=== PATIENT | female | born 1930 | race Caucasian/White ===

== ENCOUNTER 2017-02-12 13:47 | Inpatient (IN) ==
[2017-02-12] MEDS ORDERED: Ipratropium/Albuterol Neb 3 ML IH ONE (13:53)
[2017-02-12] MEDS ORDERED: methylPREDNISolone 125 MG/2 ML VIAL IVP ONE (13:53)
[2017-02-12] MEDS ORDERED: 0.9 % Sodium Chloride 500 ML IVC ONE (13:54)
--- NOTE | 2017-02-12 13:58 | Emergency Department Note ---
Disposition Clinical Impression: COPD exacerbation, Tobacco use, Hyponatremia Disposition: Admitted As Inpatient Condition: Fair Referrals: Sujey Lewis DO [Primary Care Provider] - Forms: ED Satisfaction Letter SOB HPI - General Chief Complaint: ED Shortness of Breath/Dyspnea Stated Complaint: shortness of breath Time Seen by Provider: 02/12/17 13:48 Source: patient, EMS Mode of arrival: EMS Limitations: no limitations Nursing Notes Reviewed: Yes Vital Signs Reviewed: Yes - History of Present Illness 86-year-old female history of hypertension history of COPD tobacco abuse presents for evaluation of dyspnea. Patient notes it has been short of breath over the past month worse in the past 24-48 hours. Dyspnea at rest and with exertion. Does not have home oxygen. Patient does not have home nebulizers. Denies any cough or fevers. Denies any chest pain. Patient states she does not go to the doctor very often. Denies a history of any heart attacks. Denies history of diabetes. Patient states that she continues to smoke. EMS report that she had an oxygen saturation of 92% on room air. Improve to 100% with 1 DuoNeb in route. Patient denies any recent hospitalizations in the past 2 months. - Related Data Home Medications Medication Instructions Recorded Confirmed Aspirin 81 mg PO DAILY 07/10/15 12/19/15 Multivitamin [Multi-Day Vitamins] 1 cap PO DAILY 07/10/15 12/19/15 [place]-3S/Dha/Epa/Fish Oil [Fish 1 cap PO DAILY 07/10/15 12/19/15 Oil 1,200 mg Softgel] Esomeprazole Magnesium [Nexium] 40 mg PO DAILY 08/26/15 12/19/15 Lactobacillus Acidophilus/Fos 1 tab PO DAILY 08/26/15 12/19/15 [Acidophilus Probiotic Tablet] Mirtazapine 15 mg PO HS 12/19/15 12/19/15 amLODIPine [Norvasc] 10 mg PO DAILY 12/19/15 12/19/15 Previous Rx's Medication Instructions Recorded Dronabinol [Marinol] 2.5 mg PO BIDLS #60 capsule 12/25/15 Metoprolol [Lopressor] 25 mg PO BID #0 tablet 12/25/15 Nicotine Patch [Nicoderm] 14 mg TD DAILY patch.td24 12/25/15 hydrALAZINE [HydrALAZINE] 10 mg PO Q6HR #0 tablet 12/25/15 Meclizine [Antivert] 25 mg PO TID PRN #30 tablet 08/05/16 Allergies Allergy/AdvReac Type Severity Reaction Status Date / Time No Known Allergies Allergy Verified 12/19/15 15:54 All systems ED: reviewed and negative except as stated. Constitutional: Reports: as per HPI. Denies: fever Eyes: Reports: as per HPI ENT ED: Reports: as per HPI Cardiovascular: Reports: as per HPI. Denies: chest pain, palpitations Respiratory: Reports: as per HPI, dyspnea. Denies: cough Gastrointestinal: Reports: as per HPI. Denies: abdominal pain, nausea, vomiting Genitourinary: Reports: as per HPI Musculoskeletal: Reports: as per HPI Integumentary: Reports: as per HPI Neurological: Reports: as per HPI Psychiatric: Reports: as per HPI Endocrine: Reports: as per HPI Hematological/Lymphatic: Reports: as per HPI Allergic/Immunologic: Reports: as per HPI Past Medical History - Past Medical History Medical history: Reports: DVT, hyperlipidemia, hypertension, malignancy Psychiatric history: Reports: no psych history RETAIL LOAN OFFICER history: Reports: no RETAIL LOAN OFFICER history - Social History Smoking Status: Current every day smoker Smokeless Tobacco Status: No Alcohol use: Reports: none Drug use: Reports: none Physical Exam - General Limitations: no limitations General appearance: alert, in no apparent distress, other (Appears mildly comfortable with conversational dyspneic of 1-2 sentences.) - Head Head exam: atraumatic, normal inspection - Eye Eye exam: Present: normal appearance, EOMI - ENT ENT exam: normal exam, mucous membranes moist - Neck Neck exam: Present: normal inspection, trachea midline - Chest Chest inspection: Present: normal inspection, symmetric chest wall rise, tenderness - Respiratory Respiratory exam: Present: accessory muscle use, prolonged expiratory phase. Absent: respiratory distress, wheezes - Cardiovascular Cardiovascular exam: Present: regular rate, normal rhythm - Abdominal Exam Abdominal exam: Present: soft, Non-Tender - Extremities Exam Extremities exam: Present: normal inspection. Absent: pedal edema - Back Exam Back exam: Present: normal inspection - Neurological Exam Neurological exam: Present: alert, oriented X3 - Skin Skin exam: Present: warm, dry, intact, normal color Course Course Narrative: Patient seen and examined upon arrival. Patient's in no acute distress. Patient does have some conversational dyspneic with short sentences. Patient does have accessory muscle use. Patient's lung exam is nonfocal. Patient likely is in COPD exacerbation. Patient will get double DuoNeb's IV steroids, fluids. Patient will also get a screening cardiac evaluation with EKG troponin and basic lab work. Chest x-ray is also pending. Disposition is likely admission. - Reevaluation(s) Reevaluation #1: Patient seen and examined. Patient notes that BREATHING has improved. Patient does appear to be 92% on room air. Concerned that the patient would fail outpatient therapy and does live independently. Time: 15:12 Reevaluation #2: Patient seen and examined. Patient's pulse ox appears to be 92% on room air. Patient did respond well to the steroids and albuterol. Time: 15:16 Vital Signs Temperature 97.2 F L 02/12/17 13:53 Pulse Rate 53 02/12/17 13:53 Respiratory Rate 18 02/12/17 13:53 Blood Pressure 123/92 02/12/17 13:53 O2 Sat by Pulse Oximetry 96 02/12/17 13:53 Temperature 97.2 F L 02/12/17 13:53 Pulse Rate 53 02/12/17 13:53 Respiratory Rate 18 02/12/17 14:05 Blood Pressure 123/92 02/12/17 13:53 O2 Sat by Pulse Oximetry 94 02/12/17 14:05 Oxygen Delivery Oxygen Delivery Room Air Shortness of Breath/Dyspnea - [facility] Narrative Medical decision making narrative: 86-year-old female presents for evaluation of dyspnea. Noted be dyspneic over the past 2 days. Patient does have an extensive smoking history. Patient does not follow with the doctor very often. Patient states that she has been dyspneic on exertion and at rest. No home oxygen. Patient does have home meds which she uses infrequently. Patient was found to be 92% on room air. Patient did receive 1 DuoNeb as well as subsequent nebs in the department. Patient received IV fluids and steroids. Patient's chest x-ray shows atelectasis versus pneumonia. Since the patient was borderline hypoxic will be started on oral antibiotic here. Consider the patient does live independently and would fail outpatient therapy. Patient has a negative troponin nonischemic EKG. Patient's agreeable for observation. Since labs reviewed as have what appears to be chronic hyponatremia. Patient does appear to be bradycardic with normotension. Patient is agreeable to hospital admission. Given the fact that the patient is borderline hypoxic without oxygen supplementation at home. - Lab Data Lab results reviewed: Yes I reviewed the patient's lab results. Result diagrams: 02/12/17 14:02 02/12/17 14:02 Lab Results 02/12/17 02/12/17 02/12/17 Range/Units 14:02 14:02 14:02 WBC 9.3 (4.3-11.1) K/mcL RBC 4.79 (3.82-4.97) M/mcL Hgb 13.4 (11.5-15.4) g/dL Hct 40.1 (35.3-44.9) % MCV 83.7 (83.0-100.0) fL MCH 28.0 (28.0-33.3) pg MCHC 33.4 (31.6-35.5) g/dL RDW 14.1 (11.5-14.5) % Plt Count 478 H (140-400) K/mcL MPV 9.5 (9.4-12.4) fL Immature Gran % 0.4 (0-4) % Seg Neutrophils % 67.7 % Lymphocytes % 17.0 % Monocytes % 12.4 % Eosinophils % 2.0 % Basophils % 0.5 % Neutrophils # 6.3 (1.6-8.9) K/mcL Lymphocytes # 1.6 (0.6-4.6) K/mcL Monocytes # 1.2 (0.0-1.3) K/mcL Eosinophils # 0.2 (0.0-0.6) K/mcL Basophils # 0.1 (0.0-0.2) K/mcL PT (9.4-12.1) Seconds INR Sodium 128 L (136-145) mEq/L Potassium 4.3 (3.5-4.5) mEq/L Chloride 94 L (98-109) mEq/L Carbon Dioxide 25 (19-29) mEq/L BUN 16 (7-20) mg/dL Creatinine 0.84 (0.57-1.11) mg/dL Est GFR ( Amer) > 60 (> 60) Est GFR (Non-Af Amer) > 60 (> 60) BUN/Creatinine Ratio 19 (6-26) Glucose 121 H (70-99) mg/dL Calculated Osmolality 268 L (280-300) Calcium 9.5 (8.6-10.8) mg/dL Troponin I 0.02 (0-0.03) ng/mL B-Natriuretic Peptide (0-100) pg/mL 02/12/17 02/12/17 Range/Units 14:02 14:02 WBC (4.3-11.1) K/mcL RBC (3.82-4.97) M/mcL Hgb (11.5-15.4) g/dL Hct (35.3-44.9) % MCV (83.0-100.0) fL MCH (28.0-33.3) pg MCHC (31.6-35.5) g/dL RDW (11.5-14.5) % Plt Count (140-400) K/mcL MPV (9.4-12.4) fL Immature Gran % (0-4) % Seg Neutrophils % % Lymphocytes % % Monocytes % % Eosinophils % % Basophils % % Neutrophils # (1.6-8.9) K/mcL Lymphocytes # (0.6-4.6) K/mcL Monocytes # (0.0-1.3) K/mcL Eosinophils # (0.0-0.6) K/mcL Basophils # (0.0-0.2) K/mcL PT 10.9 (9.4-12.1) Seconds INR 1.0 Sodium (136-145) mEq/L Potassium (3.5-4.5) mEq/L Chloride (98-109) mEq/L Carbon Dioxide (19-29) mEq/L BUN (7-20) mg/dL Creatinine (0.57-1.11) mg/dL Est GFR ( Amer) (> 60) Est GFR (Non-Af Amer) (> 60) BUN/Creatinine Ratio (6-26) Glucose (70-99) mg/dL Calculated Osmolality (280-300) Calcium (8.6-10.8) mg/dL Troponin I (0-0.03) ng/mL B-Natriuretic Peptide 141 H (0-100) pg/mL - Radiology Data Radiology results reviewed: Yes I reviewed the patient's radiology results. Chest X-Ray 02/12/17 13:53 IMPRESSION: Patchy opacity in the right lung base which may represent atelectasis versus pneumonia in the appropriate clinical setting. D/ / Deidra Bush MD / Deidra Bush MD Interpreting Provider: Deidra Bush MD - EKG Data EKG attestation: Yes I reviewed and interpreted this EKG. EKG shows normal: Reports: sinus rhythm Rate: Reports: normal Rhythm: Reports: NSR [place]/QRS: Reports: normal Q waves: Reports: v1 T wave inversions noted in: Reports: III (Flat) Interpretation: Reports: unchanged when compared to prior tracing (date) (2015) , nonspecific ST-T wave changes S.B.A.R. - S.B.A.RStephan Situation: Demographics, MOA Background: Presenting Complaint Assessment: Vital Signs, Course and respsone to treatment, Patient/Family Expectation Recommendation: Barrier(s) to disposition, Recommendation based on pending studies, treatments, or consults S.B.A.R. Report Given to: Dr. Aubrie Grigsby Repor Time: 15:21
[2017-02-12 14:13] LABS: Basophils # 0.1 K/mcL (0.0-0.2); Basophils % 0.5 %; Eosinophils # 0.2 K/mcL (0.0-0.6); Hematocrit 40.1 % (35.3-44.9); Hemoglobin 13.4 g/dL (11.5-15.4); Immature Granulocytes % 0.4 % (0-4); Lymphocytes # 1.6 K/mcL (0.6-4.6); Mean Corpuscular HGB Conc 33.4 g/dL (31.6-35.5); Mean Corpuscular Volume 83.7 fL (83.0-100.0); Mean Platelet Volume 9.5 fL (9.4-12.4); Monocytes # 1.2 K/mcL (0.0-1.3); Monocytes % 12.4 %; Neutrophils # 6.3 K/mcL (1.6-8.9); Platelet Count 478 K/mcL (140-400); Red Blood Count 4.79 M/mcL (3.82-4.97); Red Cell Distribution Width 14.1 % (11.5-14.5); Segmented Neutrophils % 67.7 %
[2017-02-12 14:15] LABS: Prothrombin Time 10.9 Seconds (9.4-12.1)
--- NOTE | 2017-02-12 14:15 | Emergency Department Note ---
START Narrative - START START: I examined this patient and my medical decision-making was reviewed with the SLINGER SEQUINS/PA/Advanced Practice Nurse/Resident Physician. I agree with the documented findings, disposition and treatment plan as described except to the extent set forth below. ED attending note: Patient seen with emergency medicine resident Dr. Swann. Please see a copy of his note for details of the H&P, evaluation, management and disposition of this patient. We independently had [id number] contact with the patient Briefly: 86-year-old female undiagnosed COPD one to 2 pack per day smoker presents by EMS for increasing shortness of breath and hypoxia. White And hypoxic at 92% on room air, respiratory wheezes with decreased breath sounds bilaterally. Smoker of tobacco around her. Patient with a DuoNeb steroids chest x-ray EKG screening labs. Anticipated admission. Provided 45 minutes. SERVICE for this patient. Disposition pending.
[2017-02-12 14:22] LABS: BUN/Creatinine Ratio 19 (6-26); Blood Urea Nitrogen 16 mg/dL (7-20); Calcium 9.5 mg/dL (8.6-10.8); Carbon Dioxide 25 mEq/L (19-29); Chloride 94 mEq/L (98-109); Glucose 121 mg/dL (70-99); Osmolality,Calculated 268 (280-300); Potassium 4.3 mEq/L (3.5-4.5); Sodium 128 mEq/L (136-145); eGFR For African Americans > 60 (> 60); eGFR For Non-African Americans > 60 (> 60)
[2017-02-12] MEDS ORDERED: levoFLOXacin 500 MG TABLET PO ONE (14:54)
[2017-02-12] MEDS ORDERED: Ondansetron 4 MG/2 ML VIAL IVP PRN (15:43)
[2017-02-12] MEDS ORDERED: Acetaminophen 325 MG TABLET PO PRN (15:43)
[2017-02-12] MEDS ORDERED: Naloxone 0.4 MG/ML INJ IVP PRN (15:43)
[2017-02-12] MEDS ORDERED: *HR* Morphine 2 MG/ML SYRINGE IVP PRN (15:43)
--- NOTE | 2017-02-12 15:54 | Internal Med History&Physical ---
Date of Encounter: 02/12/17 Time of Encounter: 15:52 Assessment and Plan (1) COPD exacerbation Current visit: Yes Status: Acute Acute COPD exacerbation likely secondary to community-acquired pneumonia Continue Levaquin started on the emergency room Continue Solu-Medrol, oxygen therapy and DuoNeb's. Omeprazole for GI prophylaxis and Lovenox for DVT prophylaxis. Patient will be admitted for observation. She is a DNR CC arrest DNI. Time spent on this admission 40 minutes. 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 The patient has been complaining of difficulty breathing for the past month worse in the past 2 days. She says she is bringing up some whitish phlegm. The chest x-ray shows a possible right lower lobe opacity compatible with pneumonia. Her sodium was found to be low at 128 but she has had a history of chronic hyponatremia and her prior values were 129 and 130. She was saturating 92% on room air received Solu-Medrol and DuoNeb's at the emergency room but did not improve her symptomatology. Has been feeling dizzy lately, denies any sick contacts. No other complaints Past Med Surg Social Fam HX - Past Medical History Medical history: COPD (Not oxygen dependent), DVT, hyperlipidemia, hypertension , malignancy (Abdominal Follicular lymphoma status post chemotherapy in 2011), other (Tobacco abuse, atrial fibrillation treated with aspirin only due to frequent falls. GERD, depression) Psychiatric history: no psych history - Social History Smoking Status: Current every day smoker Packs per day: 1-2 packs per day Smokeless Tobacco Status: No Alcohol use: none Drug use: none - Family History Daughter Hx Family Cancer: Yes (cervical cancer) - Additional Family History Additional family history: Daughter with cervical cancer Internal Medicine - H&P: Meds Aspirin 81 mg PO DAILY 07/10/15 [History] Multivitamin [Multi-Day Vitamins] 1 cap PO DAILY 07/10/15 [History] [place]-3S/Dha/Epa/Fish Oil [Fish Oil 1,200 mg Softgel] 1 cap PO DAILY 07/10/15 [ History] amLODIPine [Norvasc] 10 mg PO DAILY 12/19/15 [History] Metoprolol [Lopressor] 25 mg PO BID #0 tablet 12/25/15 [Rx] hydrALAZINE [HydrALAZINE] 10 mg PO Q6HR #0 tablet 12/25/15 [Rx] Albuterol Sulfate [Albuterol Inhaler] 2 puff IH Q4H PRN 02/12/17 [History] Budesonide/Formoterol 160/4.5 [Symbicort 160/4.5] 2 puff IH BIDR 02/12/17 [ History] Citalopram Hydrobromide [Citalopram HBr] 10 mg PO DAILY 02/12/17 [History] Mirtazapine [Remeron] 30 mg PO HS 02/12/17 [History] Allergies No Known Allergies Allergy (Verified 12/19/15 15:54) All Systems PM: A 10-system review of systems was performed and is negative for pertinent findings except as documented above in the HPI. Review of systems: Feeling weak and short of breath. Other systems out the 10 reviewed were negative - Constitutional Vitals: Temp Pulse Resp BP Pulse Ox 97.2 F L 53 18 123/92 94 02/12/17 13:53 02/12/17 13:53 02/12/17 14:05 02/12/17 13:53 02/12/17 14:05 General appearance: Present: A&O X 3 - Head Head exam: Present: atraumatic, normocephalic - Eye Eye exam: Present: PERRL, conjuntiva pink, sclera anicteric Pupils: Present: PERRL Additional comments: Very hard of hearing - Neck Neck exam general surgery: Present: supple, trachea midline. Absent: lymphadenopathy - Respiratory Respiratory exam: Present: CTAB, wheezes (Findings bilateral wheezing). Absent : accessory muscle use, rales, rhonchi - Cardiovascular Cardiovascular exam: Present: RRR, +S1, +S2. Absent: diastolic murmur, gallop, rubs, systolic murmur - GI/Abdominal GI/Abdominal exam: Present: normal bowel sounds, soft, no peritoneal signs. Absent: distended, tenderness - Extremities Exam Extremities exam: Present: warm, radial pulses palpable and symetrical. Absent : calf tenderness, cyanotic, pedal edema - Neurological Exam Neurological exam: Present: CN II-XII intact, oriented X3, no focal deficits. Absent: pronater drift, facial droop, speech deficit - Skin Skin exam: Present: dry, intact Internal Med - H&P Results - Labs CBC & Chem 7: 02/12/17 14:02 02/12/17 14:02 Labs: Short CBC 02/12/17 Range/Units 14:02 WBC 9.3 (4.3-11.1) K/mcL Hgb 13.4 (11.5-15.4) g/dL Hct 40.1 (35.3-44.9) % Plt Count 478 H (140-400) K/mcL Neutrophils # 6.3 (1.6-8.9) K/mcL BMP 02/12/17 14:02 Sodium 128 L Potassium 4.3 Chloride 94 L Carbon Dioxide 25 BUN 16 Creatinine 0.84 Glucose 121 H Calcium 9.5 Cardiac Enzymes 02/12/17 Range/Units 14:02 Troponin I 0.02 (0-0.03) ng/mL - Impressions ITS Impressions Chest X-Ray 02/12/17 13:53 IMPRESSION: Patchy opacity in the right lung base which may represent atelectasis versus pneumonia in the appropriate clinical setting. D/ / Deidra Bush MD / Deidra Bush MD Interpreting Provider: Deidra Bush MD
[2017-02-12] MEDS: *HR* Enoxaparin 40 MG/0.4 ML SYRINGE SQ SCH (17:40)
[2017-02-12] MEDS: 0.9 % Sodium Chloride 1,000 ML IVC SCH (17:40)
[2017-02-12] MEDS: Nicotine 21 MG PATCH.TD24 TD SCH (17:41)
[2017-02-12] MEDS: Ipratropium/Albuterol Neb 3 ML IH SCH ×2 (18:30→21:47)
[2017-02-12] MEDS: hydrALAZINE 10 MG TABLET PO SCH (18:40)
[2017-02-12] MEDS: MethylPREDNISolone 40 MG/ML VIAL IVP SCH (20:34)
[2017-02-12] MEDS: Mirtazapine 15 MG TABLET PO SCH (20:34)
[2017-02-13] MEDS: hydrALAZINE 10 MG TABLET PO SCH ×4 (00:24→17:38)
[2017-02-13] MEDS ORDERED: *HR* Labetalol 20 MG/4 ML SYRINGE IVP PRN (03:24)
[2017-02-13] MEDS: Ipratropium/Albuterol Neb 3 ML IH SCH ×4 (04:35→21:48)
[2017-02-13 04:48] LABS: Basophils % 0.1 %; Hematocrit 37.6 % (35.3-44.9); Hemoglobin 12.2 g/dL (11.5-15.4); Immature Granulocytes % 0.3 % (0-4); Lymphocytes # 0.7 K/mcL (0.6-4.6); Mean Corpuscular HGB Conc 32.4 g/dL (31.6-35.5); Mean Corpuscular Hemoglobin 27.4 pg (28.0-33.3); Mean Corpuscular Volume 84.3 fL (83.0-100.0); Mean Platelet Volume 9.3 fL (9.4-12.4); Monocytes # 0.1 K/mcL (0.0-1.3); Neutrophils # 8.1 K/mcL (1.6-8.9); Platelet Count 436 K/mcL (140-400); Red Blood Count 4.46 M/mcL (3.82-4.97); Segmented Neutrophils % 90.6 %
[2017-02-13 05:22] LABS: BUN/Creatinine Ratio 20 (6-26); Blood Urea Nitrogen 17 mg/dL (7-20); Calcium 9.2 mg/dL (8.6-10.8); Carbon Dioxide 23 mEq/L (19-29); Chloride 98 mEq/L (98-109); Glucose 151 mg/dL (70-99); Osmolality,Calculated 270 (280-300); Potassium 4.9 mEq/L (3.5-4.5); Sodium 128 mEq/L (136-145); eGFR For African Americans > 60 (> 60); eGFR For Non-African Americans > 60 (> 60)
[2017-02-13] MEDS: *HR* Enoxaparin 40 MG/0.4 ML SYRINGE SQ SCH (06:25)
[2017-02-13] MEDS ORDERED: Levofloxacin 750 MG/150 ML 750 MG/150 ML BAG IVPB SCH (09:00)
[2017-02-13] MEDS ORDERED: Sodium Bicarbonate 50 MEQ/50 ML VIAL IVP ONE (09:09)
[2017-02-13] MEDS: Nicotine 21 MG PATCH.TD24 TD SCH (10:22)
[2017-02-13] MEDS: Aspirin 81 MG TAB.CHEW PO SCH (10:24)
[2017-02-13] MEDS: amLODIPine 5 MG TABLET PO SCH (10:24)
[2017-02-13] MEDS: 0.9 % Sodium Chloride 1,000 ML IVC SCH (11:50)
[2017-02-13] MEDS: MethylPREDNISolone 40 MG/ML VIAL IVP SCH (11:51)
[2017-02-13] MEDS ORDERED: Furosemide 20 MG/2 ML VIAL IVP ONE (13:23)
--- NOTE | 2017-02-13 13:27 | Internal Med Progress Note ---
Date of Encounter: 02/13/17 Time of Encounter: 13:22 - Assessment and plan (1) COPD exacerbation Current Visit: Yes Status: Acute Assessment and plan: Looking one more day in hospital. She still requirements 1/2 L of oxygen express. She is not on oxygen at home. I would also discontinue IV fluids. give gentle diuresis. Check for home oxygen requirements on discharge. (2) Hyponatremia Current Visit: Yes Status: Acute Assessment and plan: Await results of urine sodium osmolality. There has been no improvement with IV fluids given yesterday. 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 She has history of follicular lymphoma. I will discontinue IV fluids. - Subjective Interval history: Patient seen and examined at beside. Still requiring 2.5 liters of nasal oxygen at rest.. She is not oxygen home. - Constitutional Vitals: Temp Pulse Resp BP Pulse Ox 98.1 F 112 18 152/90 90 02/13/17 11:17 02/13/17 11:17 02/13/17 11:17 02/13/17 11:17 02/13/17 11:17 General appearance: Present: A&O X 3 Exam: Gen.: patient is alert oriented times 3 not in distress. Cardiac: normal S1 S2 no additional sounds or murmurs chest: fair air entry. no active wheezing. No crackles or bronchial breathing. abdomen: soft nontender nondistended normal bowel sounds neuro: no focal deficit Internal Medicine: Result - Labs CBC & Chem 7: 02/13/17 04:33 02/13/17 04:33 Labs: Short CBC 02/13/17 Range/Units 04:33 WBC 9.0 (4.3-11.1) K/mcL Hgb 12.2 (11.5-15.4) g/dL Hct 37.6 (35.3-44.9) % Plt Count 436 H (140-400) K/mcL Neutrophils # 8.1 (1.6-8.9) K/mcL BMP 02/13/17 04:33 Sodium 128 L Potassium 4.9 H Chloride 98 Carbon Dioxide 23 BUN 17 Creatinine 0.86 Glucose 151 H Calcium 9.2 - ABG Interpretation ABG results: PT/INR, D-dimer PT 10.9 Seconds (9.4-12.1) 02/12/17 14:02 Consult Discharge Plan - Plan Referrals: Sujey Lewis DO [Primary Care Provider] - (Web Request on 02/13/17)
[2017-02-13] MEDS: predniSONE 20 MG TABLET PO SCH (15:06)
[2017-02-13] MEDS: Furosemide 40 MG TABLET PO SCH (15:06)
[2017-02-13] MEDS: Mirtazapine 15 MG TABLET PO SCH (21:38)
[2017-02-14] MEDS: hydrALAZINE 10 MG TABLET PO SCH ×4 (00:52→17:43)
[2017-02-14] MEDS: Ipratropium/Albuterol Neb 3 ML IH SCH ×4 (04:14→22:09)
[2017-02-14 04:18] LABS: Basophils % 0.1 %; Hematocrit 38.8 % (35.3-44.9); Immature Granulocytes % 0.4 % (0-4); Lymphocytes # 0.8 K/mcL (0.6-4.6); Lymphocytes % 4.3 %; Mean Corpuscular HGB Conc 33.5 g/dL (31.6-35.5); Mean Corpuscular Hemoglobin 28.3 pg (28.0-33.3); Mean Corpuscular Volume 84.3 fL (83.0-100.0); Mean Platelet Volume 9.7 fL (9.4-12.4); Neutrophils # 17.1 K/mcL (1.6-8.9); Platelet Count 503 K/mcL (140-400); Red Cell Distribution Width 14.6 % (11.5-14.5); Segmented Neutrophils % 90.2 %
[2017-02-14 04:34] LABS: Calcium 9.6 mg/dL (8.6-10.8); Magnesium 2.1 mg/dL (1.6-2.6)
[2017-02-14] MEDS: *HR* Enoxaparin 40 MG/0.4 ML SYRINGE SQ SCH (06:03)
[2017-02-14] MEDS: amLODIPine 5 MG TABLET PO SCH (07:49)
[2017-02-14] MEDS: Aspirin 81 MG TAB.CHEW PO SCH (07:50)
[2017-02-14] MEDS: Furosemide 40 MG TABLET PO SCH (07:50)
[2017-02-14] MEDS: Nicotine 21 MG PATCH.TD24 TD SCH (07:50)
[2017-02-14] MEDS: predniSONE 20 MG TABLET PO SCH (07:50)
[2017-02-14] MEDS: levoFLOXacin 750 MG TABLET PO SCH (07:50)
[2017-02-14 08:40] LABS: Basophils % 0.1 %; Hematocrit 39.4 % (35.3-44.9); Hemoglobin 12.9 g/dL (11.5-15.4); Immature Granulocytes % 0.3 % (0-4); Lymphocytes # 1.2 K/mcL (0.6-4.6); Lymphocytes % 5.4 %; Mean Corpuscular HGB Conc 32.7 g/dL (31.6-35.5); Mean Corpuscular Hemoglobin 27.9 pg (28.0-33.3); Mean Corpuscular Volume 85.1 fL (83.0-100.0); Mean Platelet Volume 9.2 fL (9.4-12.4); Monocytes # 1.7 K/mcL (0.0-1.3); Monocytes % 7.7 %; Neutrophils # 18.6 K/mcL (1.6-8.9); Platelet Count 509 K/mcL (140-400); Red Blood Count 4.63 M/mcL (3.82-4.97); Red Cell Distribution Width 14.7 % (11.5-14.5); Segmented Neutrophils % 86.5 %
--- NOTE | 2017-02-14 13:25 | Internal Med Progress Note ---
Date of Encounter: 02/14/17 Time of Encounter: 13:23 - Assessment and plan (1) COPD exacerbation Current Visit: Yes Status: Acute Assessment and plan: Likely d/c in am clinically improving started Prednisone today noted to have leukocytosis, however given no clinical signs of infectious etiology, will monitor off abx CT chest consistent with atelectasis, will provide incentive spirometery O2 qualification test for home oxygen continue bronchodilator support O2 supplementation as needed (2) Dizziness Current Visit: Yes Status: Chronic Assessment and plan: likely orthostatic clinically asymptomatic at rest will obtain PT eval (3) DVT prophylaxis Current Visit: Yes Status: Acute Assessment and plan: heparin sq (4) Hyponatremia Current Visit: Yes Status: Acute Assessment and plan: Await results of urine sodium osmolality. There has been no improvement with IV fluids given yesterday. 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 She has history of follicular lymphoma. improved with discontinuation of fluids will continue to monitor (5) Tobacco use Current Visit: Yes Status: Chronic Assessment and plan: smoking cessation counseling provided states she is ready to quit at this time nicotine supplementation provided - Subjective Interval history: Patient seen and examined. resting comfortably in bed and reports of feeling well. denies any discomfort at this time. No fevers or chills. Reports of living alone and uses a walker. Is an everyday smoker and states she is ready to quit. Also states for the last few months she has been noticing that she gets dizzy as she tries to get up and is fine when she pauses for a moment. No dizziness at rest. No headaches or lightheadedness. - Constitutional Vitals: Temp Pulse Resp BP Pulse Ox 97.7 F 86 17 125/84 94 02/14/17 11:26 02/14/17 11:26 02/14/17 11:26 02/14/17 11:26 02/14/17 11:26 General appearance: Present: A&O X 3, no acute distress, answers questions appropriately - Head Head exam: Present: atraumatic, normocephalic - Eye Eye exam: Present: normal appearance, conjuntiva pink, sclera anicteric - Respiratory Respiratory exam: Present: decreased breath sounds. Absent: respiratory distress, wheezes - Cardiovascular Cardiovascular exam: Present: RRR, +S1, +S2. Absent: diastolic murmur, gallop, rubs, systolic murmur - GI/Abdominal GI/Abdominal exam: Present: normal bowel sounds, soft, no peritoneal signs. Absent: distended, tenderness - Extremities Exam Extremities exam: Present: pedal edema, warm, radial pulses palpable and symetrical. Absent: calf tenderness - Neurological Exam Neurological exam: Present: alert, oriented X3 - Psychiatric Psychiatric exam: Present: normal affect, normal mood Internal Medicine: Result - Labs CBC & Chem 7: 02/14/17 08:33 02/14/17 03:59 Labs: Short CBC 02/14/17 02/14/17 Range/Units 03:59 08:33 WBC 18.9 H D 21.6 H (4.3-11.1) K/mcL Hgb 13.0 12.9 (11.5-15.4) g/dL Hct 38.8 39.4 (35.3-44.9) % Plt Count 503 H 509 H (140-400) K/mcL Neutrophils # 17.1 H 18.6 H (1.6-8.9) K/mcL BMP 02/14/17 03:59 Sodium 133 L Potassium 4.0 Chloride 95 L Carbon Dioxide 26 BUN 21 H Creatinine 1.09 Glucose 146 H Calcium 9.6 - ABG Interpretation ABG results: PT/INR, D-dimer PT 10.9 Seconds (9.4-12.1) 02/12/17 14:02 - Impressions Impressions Chest CT 02/14/17 08:47 IMPRESSION: Small pleural effusions, right greater left with adjacent consolidation, favored to represent passive atelectasis rather than pneumonia. Scattered additional bandlike opacities are seen throughout the lungs. Bandlike morphology favors atelectasis rather than pneumonia D/ / Leonardo Upton MD / Leonardo Upton MD Interpreting Provider: Leonardo Upton MD Consult Discharge Plan - Plan Referrals: Sujey Lewis DO [Primary Care Provider] - (Web Request on 02/13/17)
[2017-02-14] MEDS: Mirtazapine 15 MG TABLET PO SCH (19:54)
[2017-02-14] MEDS ORDERED: Bisacodyl 10 MG RECTAL SUPPOSITORY RC ONE (20:12)
[2017-02-14] MEDS ORDERED: Sennosides/Docusate Sodium TABLET PO PRN (20:13)
[2017-02-15] MEDS: hydrALAZINE 10 MG TABLET PO SCH ×5 (00:36→23:51)
[2017-02-15] MEDS: Ipratropium/Albuterol Neb 3 ML IH SCH ×4 (03:44→21:38)
[2017-02-15] MEDS: *HR* Enoxaparin 40 MG/0.4 ML SYRINGE SQ SCH (05:59)
[2017-02-15 06:16] LABS: Basophils % 0.1 %; Eosinophils % 0.3 %; Hematocrit 42.7 % (35.3-44.9); Hemoglobin 14.1 g/dL (11.5-15.4); Immature Granulocytes % 0.8 % (0-4); Lymphocytes # 1.8 K/mcL (0.6-4.6); Lymphocytes % 11.8 %; Mean Corpuscular Hemoglobin 28.2 pg (28.0-33.3); Mean Corpuscular Volume 85.4 fL (83.0-100.0); Mean Platelet Volume 9.6 fL (9.4-12.4); Monocytes # 1.8 K/mcL (0.0-1.3); Monocytes % 11.4 %; Neutrophils # 11.8 K/mcL (1.6-8.9); Platelet Count 486 K/mcL (140-400); Red Cell Distribution Width 14.8 % (11.5-14.5); Segmented Neutrophils % 75.6 %
[2017-02-15 06:40] LABS: Calcium 9.5 mg/dL (8.6-10.8); Magnesium 2.1 mg/dL (1.6-2.6); Phosphorous 2.2 mg/dL (2.3-4.7); Potassium 3.9 mEq/L (3.5-4.5)
[2017-02-15] MEDS: Nicotine 21 MG PATCH.TD24 TD SCH (08:55)
[2017-02-15] MEDS: amLODIPine 5 MG TABLET PO SCH (08:55)
[2017-02-15] MEDS: Furosemide 40 MG TABLET PO SCH (08:56)
[2017-02-15] MEDS: Aspirin 81 MG TAB.CHEW PO SCH (08:56)
[2017-02-15] MEDS: predniSONE 20 MG TABLET PO SCH (08:56)
[2017-02-15] MEDS: levoFLOXacin 750 MG TABLET PO SCH (08:56)
--- NOTE | 2017-02-15 09:04 | Discharge Summary ---
Date of Encounter: 02/15/17 Time of Encounter: 08:52 - Discharge Diagnosis (1) COPD exacerbation Priority: Primary Status: Acute (2) Dizziness Priority: Secondary Status: Chronic (3) DVT prophylaxis Priority: Secondary Status: Acute (4) Hyponatremia Priority: Secondary Status: Resolved (5) Tobacco use Priority: Secondary Status: Chronic - Discharge Medications Prescriptions: levoFLOXacin [Levofloxacin] 750 mg PO DAILY #2 tablet Nicotine Patch [Nicoderm] 21 mg TD DAILY #7 patch.td24 predniSONE [PredniSONE] 40 mg PO DAILY #4 tablet Home Medications: Aspirin 81 mg PO DAILY 07/10/15 [History] Multivitamin [Multi-Day Vitamins] 1 cap PO DAILY 07/10/15 [History] [place]-3S/Dha/Epa/Fish Oil [Fish Oil 1,200 mg Softgel] 1 cap PO DAILY 07/10/15 [ History] amLODIPine [Norvasc] 10 mg PO DAILY 12/19/15 [History] Metoprolol [Lopressor] 25 mg PO BID #0 tablet 12/25/15 [Rx] hydrALAZINE [HydrALAZINE] 10 mg PO Q6HR #0 tablet 12/25/15 [Rx] Albuterol Sulfate [Albuterol Inhaler] 2 puff IH Q4H PRN 02/12/17 [History] Budesonide/Formoterol 160/4.5 [Symbicort 160/4.5] 2 puff IH BIDR 02/12/17 [ History] Citalopram Hydrobromide [Citalopram HBr] 10 mg PO DAILY 02/12/17 [History] Mirtazapine [Remeron] 30 mg PO HS 02/12/17 [History] Nicotine Patch [Nicoderm] 21 mg TD DAILY #7 patch.td24 02/15/17 [Rx] levoFLOXacin [Levofloxacin] 750 mg PO DAILY #2 tablet 02/15/17 [Rx] predniSONE [PredniSONE] 40 mg PO DAILY #4 tablet 02/15/17 [Rx] Allergies/Adverse Reactions: Allergies No Known Allergies Allergy (Verified 12/19/15 15:54) Procedures/tests Complete & Pending: Procedures Performed prior 72 hours Category Date Time Status CT chest w/o contrast [CT chest wo con] [CT] Stat Cat Scan 02/14/17 08:47 Completed Date of admission: 02/13/17 16:35 Primary care physician: Nely Russell Consults: 02/14/17 13:26 Consult to Physical Therapy [CONS] Routine Comment: Evaluate, develop and implement POC Reason for Consult: evaulation for home health Discharging clinician: Beverly Gordon Anticipated date of discharge: 02/15/17 - Patient Status Disposition: Home, Self-Care Condition: Good Functional capacity at discharge: uses cane/walker Overall status at discharge: patient is back to baseline - Discharge Instructions Follow Up With: Sujey Lewis DO [Primary Care Provider] - (Web Request on 02/13/17) Additional Instructions: Please follow up with your primary care physician within five days after your discharge from the hospital. Please continue oral steroids and antibiotics as prescribed. Please continue O2 support at all times. You are given a prescription of nicotine patches, please do not smoke if you are using the nicotine patch. Smoking cessation is advised. Please resume all your home medications as prescribed by your primary care physician. - Diet and Activity Activity: resume usual activities as tolerated, wear oxygen at all times Diet: low salt diet Hospital course: Ms. Tan is a 86 year old female with PMH of COPD, tobacco use, HTN, HLD who was admitted for management of shortness of breath secondary to COPD exacerbation. Patient was started on IV steroids, bronchodilators, and abx. She was also noted to have hyponatremia which resolved after discontinuation of Iv fluids. She has history of follicular lymphoma,therefore was a concern for SIADH however pt remains asymptomatic. she was also evaluated for home oxygen therapy. She qualified for home oxygen and home O2 will be set up prior to her discharge. Noted to have leukocytosis with no signs of infectious etiology. She was transitioned to PO steroids. She was switched to PO steroids and will continue those after discharge. Extensive smoking cessation counseling was provided and patient is ready to quit at this time. She will be discharged with nicotine TD patches. At this time patient is hemodynamically stable and will be discharged to home with home oxygen, steroids, and abx. She is to follow up with PCP after discharge. Pt and family demonstrate understanding of her diagnosis and agree wit the discharge care and plan. Physical therapy eval was requested, however patient states she has no difficulties with ambulation with her walker and would not like any therapy or outpatient services after discharge. - Time Spent with Patient Total time spent providing and/or coordinating discharge services: Less than 30 minutes - Constitutional Vitals: Temp Pulse Resp BP Pulse Ox 98.6 F 88 17 143/90 94 02/15/17 07:35 02/15/17 07:35 02/15/17 07:35 02/15/17 07:35 02/15/17 07:35 General appearance: Present: A&O X 3, no acute distress, answers questions appropriately - Head Head exam: Present: atraumatic, normocephalic - Eye Eye exam: Present: normal appearance, conjuntiva pink, sclera anicteric - Respiratory Respiratory exam: Present: CTAB. Absent: respiratory distress, wheezes - Cardiovascular Cardiovascular exam: Present: RRR, +S1, +S2. Absent: diastolic murmur, gallop, rubs, systolic murmur - GI/Abdominal GI/Abdominal exam: Present: normal bowel sounds, soft, no peritoneal signs. Absent: distended, tenderness - Extremities Exam Extremities exam: Present: warm, radial pulses palpable and symetrical. Absent : calf tenderness, pedal edema - Neurological Exam Neurological exam: Present: alert, oriented X3 - Psychiatric Psychiatric exam: Present: normal affect, normal mood
[2017-02-15] MEDS ORDERED: Ipratropium/Albuterol Neb 3 ML IH PRN (09:45)
[2017-02-15] MEDS ORDERED: ALPRAZolam 0.25 MG TABLET PO ONE (12:50)
[2017-02-15 14:44] LABS: ABG Base Excess 8.2 mEq/L (-2.0 to 3.0); ABG Oxygen Saturation 92 % (95-98); ABG PCO2 50 mmHg (35-45); ABG PH 7.44 pH Units (7.32-7.45); ABG PO2 62 mmHg (85-104); ABG TCO2 35.5 mEq/L (20-26)
[2017-02-15 14:45] LABS: Blood Gas FiO2 28 %; Blood Gas Liter Flow 2 L/MIN
[2017-02-15] MEDS: Mirtazapine 15 MG TABLET PO SCH (20:16)
[2017-02-16 02:15] LABS: ABG Base Excess 5.1 mEq/L (-2.0 to 3.0); ABG HCO3 30.5 mEQ/L (21-27); ABG Oxygen Saturation 88 % (95-98); ABG PCO2 47 mmHg (35-45); ABG PH 7.42 pH Units (7.32-7.45); ABG PO2 53 mmHg (85-104); ABG TCO2 31.9 mEq/L (20-26)
[2017-02-16] MEDS: Ipratropium/Albuterol Neb 3 ML IH SCH ×2 (05:24→09:58)
[2017-02-16] MEDS: hydrALAZINE 10 MG TABLET PO SCH (06:22)
[2017-02-16] MEDS: *HR* Enoxaparin 40 MG/0.4 ML SYRINGE SQ SCH (06:23)
[2017-02-16 07:26] VITALS: BP 148/75
[2017-02-16 09:01] LABS: Basophils % 0.2 %; Eosinophils # 0.1 K/mcL (0.0-0.6); Eosinophils % 0.5 %; Hematocrit 43.2 % (35.3-44.9); Hemoglobin 13.9 g/dL (11.5-15.4); Immature Granulocytes % 0.6 % (0-4); Lymphocytes # 1.6 K/mcL (0.6-4.6); Lymphocytes % 12.6 %; Mean Corpuscular HGB Conc 32.2 g/dL (31.6-35.5); Mean Corpuscular Hemoglobin 27.4 pg (28.0-33.3); Mean Platelet Volume 9.3 fL (9.4-12.4); Monocytes # 1.4 K/mcL (0.0-1.3); Monocytes % 10.9 %; Neutrophils # 9.6 K/mcL (1.6-8.9); Platelet Count 508 K/mcL (140-400); Red Blood Count 5.08 M/mcL (3.82-4.97); Red Cell Distribution Width 14.6 % (11.5-14.5); Segmented Neutrophils % 75.2 %
[2017-02-16 09:11] LABS: BUN/Creatinine Ratio 22 (6-26); Blood Urea Nitrogen 21 mg/dL (7-20); Calcium 9.3 mg/dL (8.6-10.8); Carbon Dioxide 30 mEq/L (19-29); Chloride 94 mEq/L (98-109); Glucose 129 mg/dL (70-99); Magnesium 1.8 mg/dL (1.6-2.6); Osmolality,Calculated 283 (280-300); Phosphorous 2.1 mg/dL (2.3-4.7); Potassium 3.7 mEq/L (3.5-4.5); Sodium 134 mEq/L (136-145); eGFR For African Americans > 60 (> 60); eGFR For Non-African Americans 55 (> 60)
[2017-02-16] MEDS: Aspirin 81 MG TAB.CHEW PO SCH (09:17)
[2017-02-16] MEDS: predniSONE 20 MG TABLET PO SCH (09:17)
[2017-02-16] MEDS: amLODIPine 5 MG TABLET PO SCH (09:17)
[2017-02-16] MEDS: levoFLOXacin 750 MG TABLET PO SCH (09:18)
[2017-02-16] MEDS: Furosemide 40 MG TABLET PO SCH (09:18)
[2017-02-16] MEDS: Nicotine 21 MG PATCH.TD24 TD SCH (09:18)
--- NOTE | 2017-02-16 09:43 | Internal Med Progress Note ---
Date of Encounter: 02/16/17 Time of Encounter: 09:35 - Assessment and plan (1) COPD exacerbation Current Visit: Yes Status: Acute (2) Dizziness Current Visit: Yes Status: Chronic (3) DVT prophylaxis Current Visit: Yes Status: Acute (4) Hyponatremia Current Visit: Yes Status: Resolved (5) Tobacco use Current Visit: Yes Status: Chronic - Subjective Interval history: Patient seen and examined. Resting in chair and reports of feeling significantly better today. Pt's discharge was placed on hold as she reported of having difficulty breathing. An ABG was ordered and her CXR was done. ABG was consistent with chronic compensated resp failure secondary to COPD. She was briefly placed on bipap support.CXR was consistent with Atelectasis with improvement from initial imaging study. Incentive spirometry was encouraged. Pt responded appropriately to therapy and agreed to PHysical therapy eval this morning. PT eval recommended Home health, and patient in agreement for initiation of home health. Pt reports of feeling well and is ready for discharge. She will be discharged to home with oral steroids and follow up with PCP. - Constitutional Vitals: Temp Pulse Resp BP Pulse Ox 98.4 F 72 18 148/75 90 02/16/17 07:23 02/16/17 07:23 02/16/17 07:23 02/16/17 07:23 02/16/17 07:23 General appearance: Present: A&O X 3, no acute distress, answers questions appropriately - Head Head exam: Present: atraumatic, normocephalic - Eye Eye exam: Present: normal appearance, conjuntiva pink, sclera anicteric - Respiratory Respiratory exam: Present: CTAB. Absent: accessory muscle use, rales, rhonchi, wheezes - Cardiovascular Cardiovascular exam: Present: RRR, +S1, +S2. Absent: diastolic murmur, gallop, rubs, systolic murmur - GI/Abdominal GI/Abdominal exam: Present: normal bowel sounds, soft, no peritoneal signs. Absent: distended, tenderness - Extremities Exam Extremities exam: Present: warm, radial pulses palpable and symetrical. Absent : calf tenderness, cyanotic, pedal edema - Neurological Exam Neurological exam: Present: alert, oriented X3 - Psychiatric Psychiatric exam: Present: normal affect, normal mood Internal Medicine: Result - Labs CBC & Chem 7: 02/16/17 08:52 02/16/17 08:52 Labs: Short CBC 02/16/17 Range/Units 08:52 WBC 12.7 H (4.3-11.1) K/mcL Hgb 13.9 (11.5-15.4) g/dL Hct 43.2 (35.3-44.9) % Plt Count 508 H (140-400) K/mcL Neutrophils # 9.6 H (1.6-8.9) K/mcL BMP 02/16/17 08:52 Sodium 134 L Potassium 3.7 Chloride 94 L Carbon Dioxide 30 H BUN 21 H Creatinine 0.97 Glucose 129 H Calcium 9.3 - ABG Interpretation ABG results: ABG ABG pH 7.42 pH Units (7.32-7.45) 02/16/17 02:00 ABG pCO2 47 mmHg (35-45) H 02/16/17 02:00 ABG pO2 53 mmHg (85-104) L 02/16/17 02:00 ABG O2 Saturation 88 % (95-98) L 02/16/17 02:00 PT/INR, D-dimer PT 10.9 Seconds (9.4-12.1) 02/12/17 14:02 - Impressions Impressions Chest X-Ray 02/15/17 10:03 IMPRESSION: Trace bilateral pleural effusions with bibasilar atelectasis. D/ / 02/15/2017 10:53:28 Ghulam Patel MD / bcarter Interpreting Provider: Ghulam Patel MD Consult Discharge Plan - Plan Additional Instructions: Please follow up with your primary care physician within five days after your discharge from the hospital. Please continue oral steroids and antibiotics as prescribed. Please continue O2 support at all times. You are given a prescription of nicotine patches, please do not smoke if you are using the nicotine patch. Smoking cessation is advised. Please resume all your home medications as prescribed by your primary care physician. Referrals: Cori Rolle CNP [Advanced Practice Nurse] - 03/01/17 11:00 am (Please follow up with the [facility] to Dr. Lewis being out of the office) Prescriptions: levoFLOXacin [Levofloxacin] 750 mg PO DAILY #2 tablet Nicotine Patch [Nicoderm] 21 mg TD DAILY #7 patch.td24 predniSONE [PredniSONE] 40 mg PO DAILY #4 tablet
--- NOTE | 2017-02-16 09:57 | Physician Discharge Referral ---
Home Health/Hosp Referral Info Transfer to: Home Health Provider in Charge Post Discharge: PCP - Diagnosis (1) COPD exacerbation Priority: Primary Status: Resolved (2) Dizziness Priority: Secondary Status: Chronic (3) DVT prophylaxis Priority: Secondary Status: Acute (4) Hyponatremia Priority: Secondary Status: Resolved (5) Tobacco use Priority: Secondary Status: Chronic - Respiratory Orders Oxygen / L per min (2L/min) Smoking Cessation: Smoking cessation has been advised. For more information, call the [place] Tobacco Quit Line at 1-028-DGYK-NOW. - Services Needed Following services are medically necessary services: Nursing, Home Health Aide, Physical Therapy, Occupational Therapy - Transfer Medications Prescriptions: levoFLOXacin [Levofloxacin] 750 mg PO DAILY #2 tablet Nicotine Patch [Nicoderm] 21 mg TD DAILY #7 patch.td24 predniSONE [PredniSONE] 40 mg PO DAILY #4 tablet Home Medications: Aspirin 81 mg PO DAILY 07/10/15 [History] Multivitamin [Multi-Day Vitamins] 1 cap PO DAILY 07/10/15 [History] [place]-3S/Dha/Epa/Fish Oil [Fish Oil 1,200 mg Softgel] 1 cap PO DAILY 07/10/15 [ History] amLODIPine [Norvasc] 10 mg PO DAILY 12/19/15 [History] Metoprolol [Lopressor] 25 mg PO BID #0 tablet 12/25/15 [Rx] hydrALAZINE [HydrALAZINE] 10 mg PO Q6HR #0 tablet 12/25/15 [Rx] Albuterol Sulfate [Albuterol Inhaler] 2 puff IH Q4H PRN 02/12/17 [History] Budesonide/Formoterol 160/4.5 [Symbicort 160/4.5] 2 puff IH BIDR 02/12/17 [ History] Citalopram Hydrobromide [Citalopram HBr] 10 mg PO DAILY 02/12/17 [History] Mirtazapine [Remeron] 30 mg PO HS 02/12/17 [History] Nicotine Patch [Nicoderm] 21 mg TD DAILY #7 patch.td24 02/15/17 [Rx] levoFLOXacin [Levofloxacin] 750 mg PO DAILY #2 tablet 02/15/17 [Rx] predniSONE [PredniSONE] 40 mg PO DAILY #4 tablet 02/15/17 [Rx] Allergies/Adverse Reactions: Allergies No Known Allergies Allergy (Verified 12/19/15 15:54) Certification: Further, I certify that my clinical findings support that this patient is homebound (i.e. absences from home require considerable and taxing effort and are for medical reasons or yarsani services or infrequently or short duration when for other reasons) because: Homebound Reason: Patient requires assistance of a person or device to safely leave home Attestation: My signature below is to certify that this patient is under my care and that I, or nurse practitioner, or a physician's assistant director of security working with me, has a face-to -face encounter with this patient.
--- NOTE | 2017-02-16 16:35 | Electrocardiograph Report ---
[place] [id number] Test Date: 2017-02-12 Pat Name: [facility] Department: 105 Room: [facility] Gender: F Provider Relations Advocate: : 1930 Requested By: Gregg Swann Order Number: [id number] Reading MD: Tia Way Measurements Intervals [place] Rate: 66 P: 74 VT: 184 QRS: 22 QRSD: 86 T: 60 QT: 424 QTc: 438 Interpretive Statements SINUS RHYTHM WITH OCCASIONAL VENTRICULAR PREMATURE COMPLEXES NONSPECIFIC T-WAVE ABNORMALITY Electronically Signed On 02-16-2017 16:34:[address]
--- NOTE | 2017-02-16 18:13 | Electrocardiograph Report ---
[address] [address] Test Date: 2017-02-15 Pat Name: [facility] Department: 112 Room: 2A Gender: F Yard Specialist: DAMON : 1930 Requested By: Beverly Gordon Order Number: [id number] Reading MD: Tia Way Measurements Intervals [place] Rate: 94 P: NV: 0 QRS: -3 QRSD: 91 T: 98 QT: 291 QTc: 343 Interpretive Statements ATRIAL FIBRILLATION WITH ABERRANT CONDUCTION OR VENTRICULAR PREMATURE COMPLEXES NONSPECIFIC ST \T\ T-WAVE ABNORMALITY Electronically Signed On 02-16-2017 18:12:[address]
== END 2017-02-16 11:00 | disposition home or self-care (01) | DRG 191 ==
LOC: EMEROO 13:47 → 2ANU 13:47
PROVIDERS: ADMIT Internal Medicine; ATTEND Internal Medicine

== ENCOUNTER 2018-03-29 09:53 | Observation (INO) ==
[2018-03-29] MEDS ORDERED: methylPREDNISolone 125 MG/2 ML VIAL IVP ONE (10:01)
[2018-03-29] MEDS ORDERED: Ipratropium/Albuterol Neb 3 ML IH ONE ×2 (10:01→11:19)
[2018-03-29] MEDS ORDERED: 0.9 % Sodium Chloride 500 ML IVC ONE (10:02)
--- NOTE | 2018-03-29 10:05 | Emergency Department Note ---
Disposition Clinical Impression: Acute electrocardiogram changes, Dizziness, COPD exacerbation Disposition: Admitted As Inpatient Condition: Good Forms: ED Satisfaction Letter General Adult HPI - General Chief complaint: ED Shortness of Breath/Dyspnea Stated complaint: ERIC Time Seen by Provider: 03/29/18 09:59 Source: patient, family Mode of arrival: EMS Limitations: no limitations Nursing Notes Reviewed: Yes Vital Signs Reviewed: Yes - History of Present Illness HPI Narrative: Patient presents today for evaluation of dyspnea. Patient states that she has a history of COPD and is supposed to wear oxygen at night. The patient also has a history of anxiety and is taking medication for this. She began having difficulty in breathing approximately an hour prior to arrival. She states that her insides then felt warm and she felt like she was going to "explode". The patient states that she got one breathing treatment by squad with some improvement in her overall symptoms. She has not had a cough and has not had fevers or chills. She typically takes albuterol twice a day. The patient had an admission last year for pneumonia but has otherwise remained out of the hospital. Falls approximately every 6 months with her family physician. No recent changes to medications. - Related Data Home Medications Medication Instructions Recorded Confirmed Aspirin 81 mg PO DAILY 07/10/15 03/29/18 amLODIPine [Norvasc] 10 mg PO DAILY 12/19/15 03/29/18 Albuterol Sulfate [Albuterol 2 puff IH Q4H PRN 02/12/17 03/29/18 Inhaler] Budesonide/Formoterol 160/4.5 2 puff IH BIDR 02/12/17 03/29/18 [Symbicort 160/4.5] Citalopram Hydrobromide 10 mg PO DAILY 02/12/17 03/29/18 [Citalopram HBr] Mirtazapine [Remeron] 30 mg PO HS 02/12/17 03/29/18 Ferrous Sulfate [Iron] 325 mg PO DAILY 03/29/18 03/29/18 Lactobacillus Acidophilus 1 cap PO DAILY 03/29/18 03/29/18 [Acidophilus] Multivitamin [One Daily Essential] 1 tab PO DAILY 03/29/18 03/29/18 [place]-3/Dha/Epa/Fish Oil [Fish Oil 1 cap PO DAILY 03/29/18 03/29/18 1,000 mg Softgel] hydrALAZINE [HydrALAZINE] 10 mg PO TID 03/29/18 03/29/18 Previous Rx's Medication Instructions Recorded Metoprolol [Lopressor] 25 mg PO BID #0 tablet 12/25/15 Allergies Allergy/AdvReac Type Severity Reaction Status Date / Time No Known Allergies Allergy Verified 12/19/15 15:54 Review of Systems: CONSTITUTIONAL: Feeling of her insides "getting ready to explode". No weight loss, fever, chills, weakness or fatigue. HEENT: Eyes: No visual changes. Ears, Nose, Throat: No hearing loss, difficulty talking or unable to swallow. SKIN: No rash or itching. CARDIOVASCULAR: No chest pain, chest pressure or chest discomfort. No palpitations or edema. RESPIRATORY: Shortness of breath without cough or sputum production GASTROINTESTINAL: No anorexia, nausea, vomiting or diarrhea. No abdominal pain or blood. GENITOURINARY: No burning on urination or hematuria. NEUROLOGICAL: No headache, dizziness, syncope, paralysis, ataxia, numbness or tingling in the extremities. No change in bowel or bladder control. MUSCULOSKELETAL: No muscle pain, back pain, joint pain or stiffness. Past Medical History - Past Medical History Medical history: Reports: COPD, DVT, hyperlipidemia, hypertension, malignancy, other Surgical history: Reports: appendectomy, cataract, cholecystectomy, hysterectomy Psychiatric history: Reports: no psych history GUARD MUSEUM history: Reports: no GUARD MUSE[employer] history - Social History Smoking Status: Current every day smoker Smokeless Tobacco Status: No Alcohol use: Reports: none Drug use: Reports: none Physical Exam General: Well appearing, nontoxic, no acute distress Head: Normocephalic Atraumatic Eyes: PERRL, EOMI ENT: Airway patent, no stridor Neck: supple, no meningismus Chest: Wheezing with rhonchi to the right upper lobe. Cardiac: Regular rhythm Abdomen: soft, nontender, nondistended; no guarding, rebound, or tenderness to percussion Musculoskeletal: Calves symmetric, nontender, no palpable cord Skin: No rash, normal skin tone Neuro: Alert and Oriented to person, place, and time; No focal deficit, Course - Reevaluation(s) Reevaluation #1: Patient improved after initial breathing treatment. Repeat breathing treatment. Solu-Medrol given in the emergency department. Patient continues to be bradycardic with EKG changes. Patient will be admitted for further evaluation. - Consultations Consultation #1: Discussed with hospitalist, Dr. Noel, patient accepted for admission. Vital Signs Temperature 97.7 F 03/29/18 09:59 Pulse Rate 50 03/29/18 09:59 Respiratory Rate 22 03/29/18 09:59 Blood Pressure 138/83 03/29/18 09:59 O2 Sat by Pulse Oximetry 97 03/29/18 09:59 Temperature 97.7 F 03/29/18 09:59 Pulse Rate 53 03/29/18 12:12 Respiratory Rate 18 03/29/18 12:12 Blood Pressure 138/95 03/29/18 12:12 O2 Sat by Pulse Oximetry 100 03/29/18 12:12 Oxygen Delivery Oxygen Delivery Nasal Cannula Medical Decision Making - Medical Records Medical records reviewed: Yes I reviewed the patient's medical records. - Lab Data Lab results reviewed: Yes I reviewed the patient's lab results. Result diagrams: 03/29/18 10:00 03/29/18 10:00 Lab Results 03/29/18 03/29/18 03/29/18 Range/Units 10:00 10:00 10:00 WBC 7.7 (4.3-11.1) K/mcL RBC 4.49 (3.82-4.97) M/mcL Hgb 13.4 (11.5-15.4) g/dL Hct 40.3 (35.3-44.9) % MCV 89.8 (83.0-100.0) fL MCH 29.8 (28.0-33.3) pg MCHC 33.3 (31.6-35.5) g/dL RDW 13.8 (11.5-14.5) % Plt Count 481 H (140-400) K/mcL MPV 9.6 (9.4-12.4) fL Immature Gran % 0.5 (0-4) % Seg Neutrophils % 70.4 % Lymphocytes % 11.0 % Monocytes % 15.0 % Eosinophils % 2.6 % Basophils % 0.5 % Neutrophils # 5.4 (1.6-8.9) K/mcL Lymphocytes # 0.8 (0.6-4.6) K/mcL Monocytes # 1.2 (0.0-1.3) K/mcL Eosinophils # 0.2 (0.0-0.6) K/mcL Basophils # 0.0 (0.0-0.2) K/mcL Sodium 134 L (136-145) mEq/L Potassium 4.5 (3.5-5.1) mEq/L Chloride 94 L (98-107) mEq/L Carbon Dioxide 32 H (23-29) mEq/L BUN 13 (8-23) mg/dL Creatinine 0.97 (0.60-1.20) mg/dL Est GFR ( Amer) > 60 (> 60) Est GFR (Non-Af Amer) 54 L (> 60) BUN/Creatinine Ratio 13 (6-26) Glucose 130 H (70-105) mg/dL Calculated Osmolality 280 (280-300) Lactic Acid (0.5-2.2) mmol/L Calcium 9.7 (8.6-10.3) mg/dL Troponin I < 0.03 (< 0.04) ng/mL B-Natriuretic Peptide 123 H (Less than 100) pg/mL 03/29/18 Range/Units 10:15 WBC (4.3-11.1) K/mcL RBC (3.82-4.97) M/mcL Hgb (11.5-15.4) g/dL Hct (35.3-44.9) % MCV (83.0-100.0) fL MCH (28.0-33.3) pg MCHC (31.6-35.5) g/dL RDW (11.5-14.5) % Plt Count (140-400) K/mcL MPV (9.4-12.4) fL Immature Gran % (0-4) % Seg Neutrophils % % Lymphocytes % % Monocytes % % Eosinophils % % Basophils % % Neutrophils # (1.6-8.9) K/mcL Lymphocytes # (0.6-4.6) K/mcL Monocytes # (0.0-1.3) K/mcL Eosinophils # (0.0-0.6) K/mcL Basophils # (0.0-0.2) K/mcL Sodium (136-145) mEq/L Potassium (3.5-5.1) mEq/L Chloride (98-107) mEq/L Carbon Dioxide (23-29) mEq/L BUN (8-23) mg/dL Creatinine (0.60-1.20) mg/dL Est GFR ( Amer) (> 60) Est GFR (Non-Af Amer) (> 60) BUN/Creatinine Ratio (6-26) Glucose (70-105) mg/dL Calculated Osmolality (280-300) Lactic Acid 1.1 (0.5-2.2) mmol/L Calcium (8.6-10.3) mg/dL Troponin I (< 0.04) ng/mL B-Natriuretic Peptide (Less than 100) pg/mL - Radiology Data Radiology results reviewed: Yes I reviewed the patient's radiology results. - EKG Data EKG #1 EKG attestation: Yes I reviewed and interpreted this EKG. EKG results narrative: EKG shows sinus bradycardia with ventricular to 49. FL 170. QRS 81. QTC 368. Patient has a significant ST elevations or depressions. Patient has T wave inversion in V2 and flattening in V3. Significant change from previous EKG
[2018-03-29 10:32] LABS: Basophils % 0.5 %; Eosinophils # 0.2 K/mcL (0.0-0.6); Eosinophils % 2.6 %; Hematocrit 40.3 % (35.3-44.9); Hemoglobin 13.4 g/dL (11.5-15.4); Immature Granulocytes % 0.5 % (0-4); Lymphocytes # 0.8 K/mcL (0.6-4.6); Mean Corpuscular HGB Conc 33.3 g/dL (31.6-35.5); Mean Corpuscular Hemoglobin 29.8 pg (28.0-33.3); Mean Corpuscular Volume 89.8 fL (83.0-100.0); Mean Platelet Volume 9.6 fL (9.4-12.4); Monocytes # 1.2 K/mcL (0.0-1.3); Neutrophils # 5.4 K/mcL (1.6-8.9); Platelet Count 481 K/mcL (140-400); Red Blood Count 4.49 M/mcL (3.82-4.97); Red Cell Distribution Width 13.8 % (11.5-14.5); Segmented Neutrophils % 70.4 %
[2018-03-29 10:55] LABS: Troponin I < 0.03 ng/mL (< 0.04)
[2018-03-29 10:59] LABS: BUN/Creatinine Ratio 13 (6-26); Blood Urea Nitrogen 13 mg/dL (8-23); Calcium 9.7 mg/dL (8.6-10.3); Carbon Dioxide 32 mEq/L (23-29); Chloride 94 mEq/L (98-107); Glucose 130 mg/dL (70-105); Osmolality,Calculated 280 (280-300); Potassium 4.5 mEq/L (3.5-5.1); Sodium 134 mEq/L (136-145); eGFR For African Americans > 60 (> 60); eGFR For Non-African Americans 54 (> 60)
[2018-03-29] MEDS ORDERED: *HR* LORazepam 0.5 MG TABLET PO ONE (12:27)
[2018-03-29] MEDS ORDERED: Naloxone 0.4 MG/ML INJ IVP PRN (12:35)
[2018-03-29] MEDS ORDERED: Mirtazapine 15 MG TABLET PO PRN (12:40)
--- NOTE | 2018-03-29 12:49 | Internal Med History&Physical ---
Date of Encounter: 03/29/18 Time of Encounter: 12:45 Internal Medicine - H&P: HPI Chief complaint: SOB/Dyspnea Admitted From: Home Plans for Post Hospital Care: Home History of present illness: Ms. Tan is a 88 year old female with history of COPD and anxiety. She indicated that she has been sob and dyspneic for the past few days. She indicated that she wears o2 at night (unsure of liters) and has been taking her breathing treatments . The patient heart-rate has been in the 40's to 50's since arrival and the patient indicated that she normally does not run that low. Noted that she takes beta-blockers at home. Will hold while inpatient. Continue cardiac monitoring. Chest xray is negative. Patient here 1 year ago with PNA. No current PA symptoms. Past Med Surg Social Fam HX - Past Medical History Medical history: COPD, DVT, hyperlipidemia, hypertension, malignancy, other Additional medical history: Non-Hodgkins Lymphoma Psychiatric history: no psych history - Past Surgical History Surgical History: appendectomy, cataract, cholecystectomy, hysterectomy - Social History Smoking Status: Current every day smoker Smokeless Tobacco Status: No Alcohol use: none Drug use: none - Family History Daughter Hx Family Cancer: Yes (cervical, bladder cancer) Internal Medicine - H&P: Meds Aspirin 81 mg PO DAILY 07/10/15 [History] amLODIPine [Norvasc] 10 mg PO DAILY 12/19/15 [History] Metoprolol [Lopressor] 25 mg PO BID #0 tablet 12/25/15 [Rx] Albuterol Sulfate [Albuterol Inhaler] 2 puff IH Q4H PRN 02/12/17 [History] Budesonide/Formoterol 160/4.5 [Symbicort 160/4.5] 2 puff IH BIDR 02/12/17 [ History] Citalopram Hydrobromide [Citalopram HBr] 10 mg PO DAILY 02/12/17 [History] Mirtazapine [Remeron] 30 mg PO HS 02/12/17 [History] Ferrous Sulfate [Iron] 325 mg PO DAILY 03/29/18 [History] Lactobacillus Acidophilus [Acidophilus] 1 cap PO DAILY 03/29/18 [History] Multivitamin [One Daily Essential] 1 tab PO DAILY 03/29/18 [History] [place]-3/Dha/Epa/Fish Oil [Fish Oil 1,000 mg Softgel] 1 cap PO DAILY 03/29/18 [ History] hydrALAZINE [HydrALAZINE] 10 mg PO TID 03/29/18 [History] 3 Allergy/AdvReac Type Severity Reaction Status Date / Time No Known Allergies Allergy Verified 12/19/15 15:54 All Systems PM: A 10-system review of systems was performed and is negative for pertinent findings except as documented above in the HPI. - Constitutional Constitutional: no chills, no fever(s), no night sweats - EENT Eyes: no change in vision, no discharge, no pain, no photophobia Ears: no ear discharge, no ear pain, no tinnitus Nose, mouth and throat: no dysphagia, no nasal discharge, no neck pain, no sore throat - Cardiovascular Cardiovascular ROS IM: dyspnea, no chest pain, no diaphoresis, no edema ( However does report occassionally), no lightheadedness, no palpitations, no syncope - Respiratory Respiratory: cough, dyspnea, chest congestion, no wheezing, no excessive phlegm production - Gastrointestinal Gastrointestinal: no abdominal pain, no diarrhea, no hematemesis, no hematochezia, no melena, no nausea, no vomiting - Genitourinary Genitourinary: no change in urinary stream, no dysuria, no flank pain, no hematuria - Musculoskeletal Musculoskeletal ROS IM: no numbness, no tingling - Integumentary Integumentary IM: no rash, no unusual bruising - Neurological Neurological ROS: no confusion, no convulsions, no focal weakness, no numbness, no tingling, no tremor(s) - Psychiatric Psychiatric: anxiety - Hematologic/Lymphatic Hematologic/Lymphatic: no easy bruising - Constitutional Vitals: Temp Pulse Resp BP Pulse Ox 97.7 F 53 18 138/95 100 03/29/18 09:59 03/29/18 12:12 03/29/18 12:12 03/29/18 12:12 03/29/18 12:12 General appearance: Present: A&O X 3, answers questions appropriately - Head Head exam: Present: atraumatic, normocephalic - Eye Eye exam: Present: PERRL, conjuntiva pink, sclera anicteric Pupils: Present: PERRL - Neck Neck exam general surgery: Present: supple, trachea midline. Absent: lymphadenopathy - Respiratory Respiratory exam: Present: decreased breath sounds (Severely posteriorly), CTAB. Absent: accessory muscle use, rales, rhonchi, wheezes - Cardiovascular Cardiovascular exam: Present: bradycardia, RRR, +S1, +S2. Absent: diastolic murmur, gallop, rubs, systolic murmur - GI/Abdominal GI/Abdominal exam: Present: normal bowel sounds, soft, no peritoneal signs. Absent: distended, tenderness - Extremities Exam Extremities exam: Present: warm, radial pulses palpable and symmetrical. Absent : calf tenderness, cyanotic, pedal edema - Neurological Exam Neurological exam: Present: CN II-XII intact, oriented X3, no focal deficits. Absent: pronater drift, facial droop, speech deficit - Skin Skin exam: Present: dry, intact Internal Med - H&P Results - Labs CBC & Chem 7: 03/29/18 10:00 03/29/18 10:00 Labs: Short CBC 03/29/18 Range/Units 10:00 WBC 7.7 (4.3-11.1) K/mcL Hgb 13.4 (11.5-15.4) g/dL Hct 40.3 (35.3-44.9) % Plt Count 481 H (140-400) K/mcL Neutrophils # 5.4 (1.6-8.9) K/mcL BMP 03/29/18 10:00 Sodium 134 L Potassium 4.5 Chloride 94 L Carbon Dioxide 32 H BUN 13 Creatinine 0.97 Glucose 130 H Calcium 9.7 Cardiac Enzymes 03/29/18 Range/Units 10:00 Troponin I < 0.03 (< 0.04) ng/mL - Impressions ITS Impressions Chest X-Ray 03/29/18 10:00 IMPRESSION: No acute process. D/ / Phill Rutledge MD / Phill Rutledge MD Interpreting Provider: Phill Rutledge MD - Assessment and plan (1) COPD exacerbation Current Visit: Yes Status: Acute Assessment and plan: Likely an exacerbation of her COPD. The CXR is negative. Will continue IV solumedrol 40 mg iv BID Continue bronchodilators Oxygen to keep sats gt 92% (2) Hyponatremia Current Visit: No Status: Acute Assessment and plan: Marginally low. The patient was given IV saline bolus in ED Will recheck the NA in am Cardiac monitoring (3) Bradycardia Current Visit: Yes Status: Acute Assessment and plan: Hold metoprolol for now Cardiac monitoring - Time Spent With Patient Total time spent is greater than 50% in coordination of care (as documented) at patient's floor/unit and/or counseling patient:
[2018-03-29 13:10] LABS: Magnesium 1.9 mg/dL (1.6-2.6)
--- NOTE | 2018-03-29 14:49 | Electrocardiograph Report ---
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
[2018-03-29] MEDS: hydrALAZINE 10 MG TABLET PO SCH ×2 (15:41→22:07)
[2018-03-29] MEDS: Ipratropium/Albuterol Neb 3 ML IH SCH ×3 (16:14→23:02)
[2018-03-29] MEDS: Budesonide/Formoterol 160/4.5 MDI IH SCH (19:49)
[2018-03-29] MEDS: MethylPREDNISolone 40 MG/ML VIAL IVP SCH (22:07)
[2018-03-30] MEDS: Ipratropium/Albuterol Neb 3 ML IH SCH ×5 (03:56→19:56)
[2018-03-30 04:01] LABS: Basophils % 0.1 %; Hematocrit 40.9 % (35.3-44.9); Hemoglobin 13.5 g/dL (11.5-15.4); Immature Granulocytes % 0.5 % (0-4); Lymphocytes # 0.5 K/mcL (0.6-4.6); Lymphocytes % 4.9 %; Mean Corpuscular Hemoglobin 29.6 pg (28.0-33.3); Mean Corpuscular Volume 89.7 fL (83.0-100.0); Mean Platelet Volume 9.7 fL (9.4-12.4); Monocytes # 0.1 K/mcL (0.0-1.3); Monocytes % 1.3 %; Neutrophils # 10.2 K/mcL (1.6-8.9); Platelet Count 536 K/mcL (140-400); Red Blood Count 4.56 M/mcL (3.82-4.97); Red Cell Distribution Width 13.6 % (11.5-14.5); Segmented Neutrophils % 93.2 %
[2018-03-30 04:21] LABS: BUN/Creatinine Ratio 18 (6-26); Blood Urea Nitrogen 18 mg/dL (8-23); Calcium 9.9 mg/dL (8.6-10.3); Carbon Dioxide 25 mEq/L (23-29); Chloride 95 mEq/L (98-107); Glucose 221 mg/dL (70-105); Osmolality,Calculated 281 (280-300); Potassium 4.3 mEq/L (3.5-5.1); Sodium 131 mEq/L (136-145); eGFR For African Americans > 60 (> 60); eGFR For Non-African Americans 52 (> 60)
[2018-03-30] MEDS: Budesonide/Formoterol 160/4.5 MDI IH SCH ×2 (07:36→19:56)
[2018-03-30] MEDS ORDERED: NON-FORMULARY MEDICATION 1 EACH EACH (Omega-3/Dha/Epa/Fish Oil [Fish Oil 1,000 Mg Softgel] PO SCH (09:00)
[2018-03-30] MEDS: Metoprolol XL (24 HR) Succ 25 MG TAB.ER.24H PO SCH (09:05)
[2018-03-30] MEDS: hydrALAZINE 10 MG TABLET PO SCH ×3 (09:05→20:31)
[2018-03-30] MEDS: Aspirin 81 MG TAB.CHEW PO SCH (09:05)
[2018-03-30] MEDS: Lactobacillus 1 EACH CAP.SPRINK PO SCH (09:05)
[2018-03-30] MEDS: amLODIPine 5 MG TABLET PO SCH (09:06)
[2018-03-30] MEDS: MethylPREDNISolone 40 MG/ML VIAL IVP SCH (09:06)
[2018-03-30] MEDS: Multivit/Ca/Min/Fe/FA 1 TAB TABLET PO SCH (09:06)
--- NOTE | 2018-03-30 17:28 | Internal Med Progress Note ---
Date of Encounter: 03/30/18 Time of Encounter: 11:30 - Assessment and plan (1) COPD exacerbation Current Visit: Yes Status: Acute Assessment and plan: Continue bronchodilators. Transition to oral steroids. O2 supplementation and BiPAP as needed. (2) Bradycardia Current Visit: Yes Status: Acute Assessment and plan: Heart rate has improved and patient is now tachycardic. We will place her back on metoprolol but started to lower dose. Monitor heart rate with telemetry. (3) Hyponatremia Current Visit: No Status: Acute Assessment and plan: Chronic hyponatremia. Sodium 131 today. We will follow closely. Patient is currently not on any diuretics. - Time Spent With Patient Total time spent is greater than 50% in coordination of care (as documented) at patient's floor/unit and/or counseling patient: - Subjective Interval history: Patient feels better overall. Shortness of breath has improved. Denies any chest pain or palpitations. Denies any dizziness or lightheadedness. Heart rate has improved after beta manjit was stopped. - Constitutional Vitals: Temp Pulse Resp BP Pulse Ox 98.1 F 101 18 149/72 97 03/30/18 16:46 03/30/18 16:46 03/30/18 16:46 03/30/18 16:46 03/30/18 16:46 General appearance: Present: A&O X 3, answers questions appropriately - Neck Neck exam general surgery: Present: supple, trachea midline. Absent: lymphadenopathy - Respiratory Respiratory exam: Present: prolonged expiratory phase, wheezes. Absent: accessory muscle use, rales, rhonchi - Cardiovascular Cardiovascular exam: Present: RRR, +S1, +S2, tachycardia. Absent: diastolic murmur, gallop, rubs, systolic murmur - GI/Abdominal GI/Abdominal exam: Present: normal bowel sounds, soft, no peritoneal signs. Absent: distended, tenderness - Extremities Exam Extremities exam: Present: warm, radial pulses palpable and symmetrical. Absent : calf tenderness, cyanotic, pedal edema Internal Medicine: Result - Labs CBC & Chem 7: 03/30/18 03:38 03/30/18 03:38 Labs: Short CBC 03/30/18 Range/Units 03:38 WBC 10.9 (4.3-11.1) K/mcL Hgb 13.5 (11.5-15.4) g/dL Hct 40.9 (35.3-44.9) % Plt Count 536 H (140-400) K/mcL Neutrophils # 10.2 H (1.6-8.9) K/mcL BMP 03/30/18 03:38 Sodium 131 L Potassium 4.3 Chloride 95 L Carbon Dioxide 25 BUN 18 Creatinine 1.00 Glucose 221 H Calcium 9.9 Consult Discharge Plan - Plan Referrals: NONE,PCP [Non-Partnered Physician] -
[2018-03-30] MEDS: *HR* Heparin 5,000 UNIT/ML VIAL SQ SCH (18:00)
[2018-03-30] MEDS ORDERED: Ipratropium/Albuterol Neb 3 ML IH PRN (20:38)
[2018-03-30] MEDS ORDERED: Mirtazapine 15 MG TABLET PO SCH (21:00)
[2018-03-31] MEDS: *HR* Heparin 5,000 UNIT/ML VIAL SQ SCH (05:13)
[2018-03-31 05:47] LABS: Basophils % 0.1 %; Eosinophils % 0.1 %; Hematocrit 40.5 % (35.3-44.9); Hemoglobin 13.2 g/dL (11.5-15.4); Immature Granulocytes % 0.5 % (0-4); Lymphocytes # 0.9 K/mcL (0.6-4.6); Lymphocytes % 5.2 %; Mean Corpuscular HGB Conc 32.6 g/dL (31.6-35.5); Mean Corpuscular Hemoglobin 29.8 pg (28.0-33.3); Mean Corpuscular Volume 91.4 fL (83.0-100.0); Mean Platelet Volume 10.1 fL (9.4-12.4); Monocytes # 1.6 K/mcL (0.0-1.3); Monocytes % 8.7 %; Neutrophils # 15.4 K/mcL (1.6-8.9); Platelet Count 523 K/mcL (140-400); Red Blood Count 4.43 M/mcL (3.82-4.97); Red Cell Distribution Width 14.2 % (11.5-14.5); Segmented Neutrophils % 85.4 %
[2018-03-31 06:08] LABS: BUN/Creatinine Ratio 26 (6-26); Blood Urea Nitrogen 23 mg/dL (8-23); Calcium 9.4 mg/dL (8.6-10.3); Carbon Dioxide 25 mEq/L (23-29); Chloride 101 mEq/L (98-107); Glucose 120 mg/dL (70-105); Osmolality,Calculated 285 (280-300); Potassium 4.6 mEq/L (3.5-5.1); Sodium 135 mEq/L (136-145); eGFR For African Americans > 60 (> 60); eGFR For Non-African Americans > 60 (> 60)
[2018-03-31] MEDS: Ipratropium/Albuterol Neb 3 ML IH SCH ×2 (07:29→11:05)
[2018-03-31] MEDS: Budesonide/Formoterol 160/4.5 MDI IH SCH (07:29)
[2018-03-31] MEDS: amLODIPine 5 MG TABLET PO SCH (08:11)
[2018-03-31] MEDS: Lactobacillus 1 EACH CAP.SPRINK PO SCH (08:11)
[2018-03-31] MEDS: hydrALAZINE 10 MG TABLET PO SCH (08:11)
[2018-03-31] MEDS: Aspirin 81 MG TAB.CHEW PO SCH (08:11)
[2018-03-31] MEDS: Metoprolol XL (24 HR) Succ 25 MG TAB.ER.24H PO SCH (08:11)
[2018-03-31] MEDS: Multivit/Ca/Min/Fe/FA 1 TAB TABLET PO SCH (08:11)
[2018-03-31] MEDS ORDERED: predniSONE 20 MG TABLET PO SCH (09:00)
--- NOTE | 2018-03-31 11:21 | Discharge Summary ---
- NOTES TO OUTPATIENT PROVIDER Notes to Outpatient Provider: Patient hospitalized here for COPD exacerbation and bradycardia. She was treated with bronchodilators and steroids with improvement in her symptoms. Her metoprolol was stopped but patient became tachycardic soon after and so she has been started back on a low-dose of metoprolol with improvement in her heart rate. She has not been bradycardic since then. We also increased her hydralazine to 25 mg 3 times a day to control her blood pressure better. She is stable to be discharged from medical standpoint and will follow up with her primary care provider for further management. Orders not resulted at time of discharge: Pending orders 03/31/18 08:20 MRSA Surveillance Screen [MOLMIC] Routine Date of Encounter: 03/31/18 Time of Encounter: 09:15 - Discharge Diagnosis (1) COPD exacerbation Priority: Primary Status: Acute (2) Bradycardia Priority: Secondary Status: Resolved (3) Hyponatremia Priority: Secondary Status: Acute Hospital course: Ms. Tan is a 88 year old female Patient history of COPD, chronic tobacco abuse who was hospitalized here for COPD exacerbation and bradycardia. She was treated with bronchodilators and steroids with improvement in her symptoms. Her metoprolol was stopped but patient became tachycardic soon after and so she has been started back on a low-dose of metoprolol with improvement in her heart rate. She has not been bradycardic since then. We also increased her hydralazine to 25 mg 3 times a day to control her blood pressure better. She is stable to be discharged from medical standpoint and will follow up with her primary care provider for further management. She will be discharged on a steroid taper for her COPD. Discharge discussed with: patient, family, nurse - Time Spent with Patient Total time spent providing and/or coordinating discharge services: Less than 30 minutes (25 min) - Discharge Medications Prescriptions: hydrALAZINE [HydrALAZINE] 25 mg PO TID #90 tablet Metoprolol XL (24 HR) Succ [Toprol Xl] 25 mg PO DAILY #30 tab.er.24h predniSONE [PredniSONE] 10 mg PO DAILY 8 Days #20 tablet Home Medications: Aspirin 81 mg PO DAILY 07/10/15 [History] amLODIPine [Norvasc] 10 mg PO DAILY 12/19/15 [History] Albuterol Sulfate [Albuterol Inhaler] 2 puff IH Q4H PRN 02/12/17 [History] Budesonide/Formoterol 160/4.5 [Symbicort 160/4.5] 2 puff IH BIDR 02/12/17 [ History] Citalopram Hydrobromide [Citalopram HBr] 10 mg PO DAILY 02/12/17 [History] Mirtazapine [Remeron] 30 mg PO HS 02/12/17 [History] Ferrous Sulfate [Iron] 325 mg PO DAILY 03/29/18 [History] Lactobacillus Acidophilus [Acidophilus] 1 cap PO DAILY 03/29/18 [History] Multivitamin [One Daily Essential] 1 tab PO DAILY 03/29/18 [History] [place]-3/Dha/Epa/Fish Oil [Fish Oil 1,000 mg Softgel] 1 cap PO DAILY 03/29/18 [ History] Metoprolol XL (24 HR) Succ [Toprol Xl] 25 mg PO DAILY #30 tab.er.24h 03/31/18 [ Rx] hydrALAZINE [HydrALAZINE] 25 mg PO TID #90 tablet 03/31/18 [Rx] predniSONE [PredniSONE] 10 mg PO DAILY 8 Days #20 tablet 03/31/18 [Rx] Allergies/Adverse Reactions: 3 Allergy/AdvReac Type Severity Reaction Status Date / Time No Known Allergies Allergy Verified 12/19/15 15:54 Date of admission: 03/29/18 12:21 Primary care physician: Gordy Ricks DO Discharging clinician: Guicho Canas Anticipated date of discharge: 03/31/18 - Constitutional Vitals: Temp Pulse Resp BP Pulse Ox 97.9 F 84 16 155/95 95 03/31/18 07:18 03/31/18 07:18 03/31/18 07:18 03/31/18 07:18 03/31/18 07:18 General appearance: Present: cooperative, A&O X 3, answers questions appropriately - Neck Neck exam general surgery: Present: supple, trachea midline. Absent: lymphadenopathy - Respiratory Respiratory exam: Present: prolonged expiratory phase, wheezes. Absent: accessory muscle use, rales, rhonchi - Cardiovascular Cardiovascular exam: Present: RRR, +S1, +S2. Absent: diastolic murmur, gallop, rubs, systolic murmur - GI/Abdominal GI/Abdominal exam: Present: normal bowel sounds, soft, no peritoneal signs. Absent: distended, tenderness - Patient Status Disposition: Home, Self-Care Condition: Good Functional capacity at discharge: independent ambulation Overall status at discharge: patient is progressing back to baseline - Discharge Instructions Instructions: Chronic Obstructive Pulmonary Disease (DC) Follow Up With: Gordy Ricks DO [Primary Care Provider] - 04/05/18 10:00 am (Please follow up as schedule...) NONE,PCP [Non-Partnered Physician] - (in 1-2 weeks) - Diet and Activity Activity: increase activity as tolerated Diet: low fat, low cholesterol, low salt diet
[2018-03-31 11:23] VITALS: BP 147/72
== END 2018-03-31 13:00 | disposition home or self-care (01) ==
LOC: EMEROO 09:53 → 2ANU 09:53 → SUATTDRO 12:21 → 2ANU 13:15
PROVIDERS: ADMIT Internal Medicine; ATTEND Internal Medicine

== ENCOUNTER 2018-04-16 16:02 | Inpatient (IN) ==
--- NOTE | 2018-04-16 16:21 | Emergency Department Note ---
Disposition Clinical Impression: Abnormal EKG, Difficulty breathing Chest pain Qualifiers: Chest pain type: other chest pain Qualified Code(s): R07.89 - Other chest pain Disposition: Admitted As Inpatient Condition: Fair Referrals: Gordy Ricks DO [Resident] - Forms: ED Satisfaction Letter Time of Disposition: 22:02 General Adult HPI - General Chief complaint: ED Shortness of Breath/Dyspnea Stated complaint: Abdominal Pain Time Seen by Provider: 04/16/18 16:06 Source: patient, family Mode of arrival: ambulatory Limitations: no limitations Nursing Notes Reviewed: Yes Vital Signs Reviewed: Yes - History of Present Illness HPI Narrative: 88 yo female presents to the emergency department with the chief complaint of chest pain and shortness of breath. Her daughter states that she was complaining of chest and back pain earlier today when they went to visit her. She was not wearing her oxygen like she was supposed to and also complained of some shortness of breath. She currently has no complaints now that she is in the ED saying that her chest pain and shortness of breath have completely resolved. She states she was not doing anything differently when she had the chest pain earlier and says that nothing made it any worse or better. Daughter states that she made her mother chew a 325mg aspirin at home before coming to the emergency department. Patient denies fever, chills, nausea, vomiting, leg pain, leg swelling. She states she has abdominal pain but it is the same pain she has had for the past 40 years. Patient has no history of any cardiac conditions besides hypertension and hyperlipidemia. Pain Scale: 4 - Related Data Home Medications Medication Instructions Recorded Confirmed Aspirin 81 mg PO DAILY 07/10/15 03/29/18 amLODIPine [Norvasc] 10 mg PO DAILY 12/19/15 03/29/18 Albuterol Sulfate [Albuterol 2 puff IH Q4H PRN 02/12/17 03/29/18 Inhaler] Budesonide/Formoterol 160/4.5 2 puff IH BIDR 02/12/17 03/29/18 [Symbicort 160/4.5] Citalopram Hydrobromide 10 mg PO DAILY 02/12/17 03/29/18 [Citalopram HBr] Mirtazapine [Remeron] 30 mg PO HS 02/12/17 03/29/18 Ferrous Sulfate [Iron] 325 mg PO DAILY 03/29/18 03/29/18 Lactobacillus Acidophilus 1 cap PO DAILY 03/29/18 03/29/18 [Acidophilus] Multivitamin [One Daily Essential] 1 tab PO DAILY 03/29/18 03/29/18 [place]-3/Dha/Epa/Fish Oil [Fish Oil 1 cap PO DAILY 03/29/18 03/29/18 1,000 mg Softgel] Previous Rx's Medication Instructions Recorded Metoprolol XL (24 HR) Succ [Toprol 25 mg PO DAILY #30 tab.er.24h 03/31/18 Xl] hydrALAZINE [HydrALAZINE] 25 mg PO TID #90 tablet 03/31/18 predniSONE [PredniSONE] 10 mg PO DAILY 8 Days #20 tablet 03/31/18 Allergies Allergy/AdvReac Type Severity Reaction Status Date / Time No Known Allergies Allergy Verified 12/19/15 15:54 All systems ED: reviewed and negative except as stated. Review of Systems: As Per HPI Constitutional: Denies: fever, chills, weakness, weight change Cardiovascular: Reports: chest pain, dyspnea on exertion. Denies: palpitations , edema, syncope Respiratory: Reports: dyspnea. Denies: cough, wheezes Gastrointestinal: Reports: abdominal pain. Denies: nausea, vomiting, diarrhea, constipation Genitourinary: Denies: dysuria, frequency, hematuria, discharge Musculoskeletal: Reports: back pain. Denies: neck pain, arthralgia, myalgia Integumentary: Denies: rash Neurological: Denies: headache, weakness, numbness Past Medical History - Past Medical History Attestation: Yes The following information was validated with the patient. Source: patient Medical history: Reports: COPD, DVT, hyperlipidemia, hypertension, malignancy, other Surgical history: Reports: appendectomy, cataract, cholecystectomy, hysterectomy Psychiatric history: Reports: no psych history BASE FILLER history: Reports: no BASE FILLER history - Social History Smoking Status: Current every day smoker Smokeless Tobacco Status: No Alcohol use: Reports: none Drug use: Reports: none Physical Exam Patient lying comfortably in bed with a nasal cannula. She had no tenderness to palpation of her chest or back. There was significant tenderness to palpation of her epigastric region. She is not currently diaphoretic. - General Limitations: no limitations General appearance: alert, in no apparent distress - Head Head exam: atraumatic, normocephalic - Eye Eye exam: Present: normal appearance, PERRL, EOMI - Neck Neck exam: Present: normal inspection, full ROM, trachea midline - Chest Chest inspection: Present: normal inspection, symmetric chest wall rise. Absent : tenderness, rash - Respiratory Respiratory exam: Present: normal lung sounds bilaterally. Absent: respiratory distress, wheezes - Cardiovascular Cardiovascular exam: Present: regular rate, normal rhythm, normal heart sounds - Abdominal Exam Abdominal exam: Present: soft, tenderness (Epigastric region), guarding. Absent : distention, rebound, rigidity Course Vital Signs Temperature 99.6 F 04/16/18 16:09 Pulse Rate 95 04/16/18 16:09 Respiratory Rate 18 04/16/18 16:09 Blood Pressure 125/84 04/16/18 16:09 O2 Sat by Pulse Oximetry 96 04/16/18 16:09 Temperature 99.6 F 04/16/18 16:09 Pulse Rate 95 04/16/18 18:25 Respiratory Rate 18 04/16/18 20:40 Blood Pressure 100/72 04/16/18 20:40 O2 Sat by Pulse Oximetry 97 04/16/18 20:40 Oxygen Delivery Oxygen Delivery Nasal Cannula Medical Decision Making - MDM Narrative Medical decision making narrative: Patient complaining of resolved chest pain and shortness of breath. We will do ACS rule out including EKG, chest x-ray, CBC, BMP, troponin. Since she also has epigastric pain, we will add a lipase to evaluate for pancreatitis. 164 - patient has new findings on EKG when compared to an EKG done approximately 2 weeks ago. These findings along with the chest pain will lead us to admitting the patient. We will wait until all lab results are back before paging the hospitalist. Patient and daughter have been told that she will be admitted and they agree with this plan of care. 1811 - patient's lab work is returned as unremarkable. There is some mild bibasilar airspace opacities suggestive of either atelectasis or pulmonary edema , with pneumonia being a less likely cause. Due to the chest pain and EKG changes we will admit. The hospitalist has been paged at this time. 182 - Spoke with the Hospitalist Dr. Aguayo who is requesting a CTA of the chest to rule out PE. She has agreed to take the patient once the scan has been read and we update her on the results. 1851 - spoke with CT, they are taking the patient down now. 2199 - after multiple delays, patient finally was able to go to CT scan. CT was read as negative for pulmonary embolus. We have admitted to the hospitalist. - Medical Records Medical records reviewed: Yes I reviewed the patient's medical records. - Lab Data Lab results reviewed: Yes I reviewed the patient's lab results. Result diagrams: 04/16/18 16:16 04/16/18 16:16 Lab Results 04/16/18 04/16/18 04/16/18 Range/Units 16:16 16:16 16:19 WBC 13.7 H (4.3-11.1) K/mcL RBC 4.00 (3.82-4.97) M/mcL Hgb 12.0 (11.5-15.4) g/dL Hct 36.3 (35.3-44.9) % MCV 90.8 (83.0-100.0) fL MCH 30.0 (28.0-33.3) pg MCHC 33.1 (31.6-35.5) g/dL RDW 14.5 (11.5-14.5) % Plt Count 388 (140-400) K/mcL MPV 9.4 (9.4-12.4) fL PT (9.4-12.1) Seconds INR APTT (26.0-36.0) Seconds Sodium 126 L (136-145) mEq/L Potassium 4.0 (3.5-5.1) mEq/L Chloride 100 (98-107) mEq/L Carbon Dioxide 27 (23-29) mEq/L BUN 15 (8-23) mg/dL Creatinine 0.97 (0.60-1.20) mg/dL Est GFR ( Amer) > 60 (> 60) Est GFR (Non-Af Amer) 54 L (> 60) BUN/Creatinine Ratio 15 (6-26) Glucose 183 H (70-105) mg/dL Calculated Osmolality 268 L (280-300) Calcium 9.2 (8.6-10.3) mg/dL Phosphorus (2.7-4.5) mg/dL Magnesium (1.6-2.6) mg/dL Total Bilirubin 0.6 (0.3-1.0) mg/dL Direct Bilirubin 0.2 (0.0-0.2) mg/dL Indirect Bilirubin 0.4 (0.0-1.2) mg/dL AST 17 (13-39) Units/L ALT 13 (7-52) Units/L Alkaline Phosphatase 86 (34-104) Units/L Troponin I < 0.03 (< 0.04) ng/mL B-Natriuretic Peptide (Less than 100) pg/mL Serum Total Protein 6.6 (6.4-8.9) g/dL Albumin 3.9 (3.5-5.7) g/dL Globulin 2.7 (2.4-3.5) g/dL Albumin/Globulin Ratio 1.4 (1.1-2.2) Lipase 11 (11-82) Units/L TSH (0.340-5.600) mcIU/mL Free T4 (0.70-2.00) ng/dl 04/16/18 04/16/18 04/16/18 Range/Units 20:40 20:40 20:40 WBC (4.3-11.1) K/mcL RBC (3.82-4.97) M/mcL Hgb (11.5-15.4) g/dL Hct (35.3-44.9) % MCV (83.0-100.0) fL MCH (28.0-33.3) pg MCHC (31.6-35.5) g/dL RDW (11.5-14.5) % Plt Count (140-400) K/mcL MPV (9.4-12.4) fL PT 13.0 H (9.4-12.1) Seconds INR 1.2 APTT 25.0 L (26.0-36.0) Seconds Sodium (136-145) mEq/L Potassium (3.5-5.1) mEq/L Chloride (98-107) mEq/L Carbon Dioxide (23-29) mEq/L BUN (8-23) mg/dL Creatinine (0.60-1.20) mg/dL Est GFR ( Amer) (> 60) Est GFR (Non-Af Amer) (> 60) BUN/Creatinine Ratio (6-26) Glucose (70-105) mg/dL Calculated Osmolality (280-300) Calcium (8.6-10.3) mg/dL Phosphorus 3.3 (2.7-4.5) mg/dL Magnesium 2.0 (1.6-2.6) mg/dL Total Bilirubin (0.3-1.0) mg/dL Direct Bilirubin (0.0-0.2) mg/dL Indirect Bilirubin (0.0-1.2) mg/dL AST (13-39) Units/L ALT (7-52) Units/L Alkaline Phosphatase (34-104) Units/L Troponin I (< 0.04) ng/mL B-Natriuretic Peptide (Less than 100) pg/mL Serum Total Protein (6.4-8.9) g/dL Albumin (3.5-5.7) g/dL Globulin (2.4-3.5) g/dL Albumin/Globulin Ratio (1.1-2.2) Lipase (11-82) Units/L TSH 0.526 (0.340-5.600) mcIU/mL Free T4 0.99 (0.70-2.00) ng/dl 04/16/18 Range/Units 20:40 WBC (4.3-11.1) K/mcL RBC (3.82-4.97) M/mcL Hgb (11.5-15.4) g/dL Hct (35.3-44.9) % MCV (83.0-100.0) fL MCH (28.0-33.3) pg MCHC (31.6-35.5) g/dL RDW (11.5-14.5) % Plt Count (140-400) K/mcL MPV (9.4-12.4) fL PT (9.4-12.1) Seconds INR APTT (26.0-36.0) Seconds Sodium (136-145) mEq/L Potassium (3.5-5.1) mEq/L Chloride (98-107) mEq/L Carbon Dioxide (23-29) mEq/L BUN (8-23) mg/dL Creatinine (0.60-1.20) mg/dL Est GFR ( Amer) (> 60) Est GFR (Non-Af Amer) (> 60) BUN/Creatinine Ratio (6-26) Glucose (70-105) mg/dL Calculated Osmolality (280-300) Calcium (8.6-10.3) mg/dL Phosphorus (2.7-4.5) mg/dL Magnesium (1.6-2.6) mg/dL Total Bilirubin (0.3-1.0) mg/dL Direct Bilirubin (0.0-0.2) mg/dL Indirect Bilirubin (0.0-1.2) mg/dL AST (13-39) Units/L ALT (7-52) Units/L Alkaline Phosphatase (34-104) Units/L Troponin I (< 0.04) ng/mL B-Natriuretic Peptide 295 H (Less than 100) pg/mL Serum Total Protein (6.4-8.9) g/dL Albumin (3.5-5.7) g/dL Globulin (2.4-3.5) g/dL Albumin/Globulin Ratio (1.1-2.2) Lipase (11-82) Units/L TSH (0.340-5.600) mcIU/mL Free T4 (0.70-2.00) ng/dl - Radiology Data Radiology results reviewed: Yes I reviewed the patient's radiology results. - EKG Data EKG #1 EKG attestation: Yes I reviewed and interpreted this EKG. EKG results narrative: 1634 - the jugular rate 95 bpm, unable to establish IL interval, QRS duration 85 MS, QT/QTC ratio 329/82 MS, normal axis. Atrial flutter with tachycardia and nonspecific T-wave abnormality. This could also potentially represent MAT as it is hard to distinguish the P waves and none of them look similar to each other. This EKG is significantly changed from her previous one dated 03/29/2018 where she exhibited sinus bradycardia at 49 bpm. Critical Care Time Critical Care Time: Yes Total Critical Care Time: 35 Attestation: Critical care time 35 minutes managing working up patient's chest pain. Attestation Statement - Attestation Attestation: Patient was seen with resident physician. I reviewed the history, physical, assessment and plan, and agree with the findings. I also personally evaluated this patient and had [id number] time with this patient. 88-year-old female presents emergency Department chief complaint of chest pain and abdominal pain. She said that the abdominal pain is chronic for her she has had that for a long time she said she always has the pain. However the chest pain comes and goes but she said it was really be bad for about 15 minutes earlier this afternoon. A family member saw her and ultimately prompted the visit. Patient is supposed be on home O2 all the time but she only uses it at night. She is also had intermittent shortness of breath with the pain she said the chest pain has now resolved. Denies fevers or chills. No cough. Review of systems as above remainder negative. Physical exam vital signs tachycardic hemodynamically stable otherwise. ENT is unremarkable. Lungs diffuse wheezing but minimal with good air exchange. Heart tachycardic seems irregular rhythm no obvious murmurs. Abdomen soft nontender. Extremities unremarkable. Neurologically intact. Skin no rashes. Psych patient is somewhat uncooperative. We will do a cardiac workup. Initial EKG seems to show atrial flutter which is new from a couple weeks ago. I we will do a full cardiac workup and admit the patient the hospitalist service for further evaluation and treatment. CT scan of the chest also revealed no PE. Otherwise workup was negative. Patient on EKG has what may be a new atrial flutter. Though the workup was largely negative with her age and chest pain and EKG findings we decided to admit the patient for further evaluation treatment. The hospitalist service was notified and agreed to accept the patient. Critical care time for this patient 35 minutes. I agree with resident physician assessment and plan.
[2018-04-16 17:33] LABS: Hematocrit 36.3 % (35.3-44.9); Mean Corpuscular HGB Conc 33.1 g/dL (31.6-35.5); Mean Corpuscular Volume 90.8 fL (83.0-100.0); Mean Platelet Volume 9.4 fL (9.4-12.4); Platelet Count 388 K/mcL (140-400); Red Cell Distribution Width 14.5 % (11.5-14.5)
[2018-04-16 17:59] LABS: Bilirubin,Direct 0.2 mg/dL (0.0-0.2); Bilirubin,Total 0.6 mg/dL (0.3-1.0)
[2018-04-16 18:00] LABS: Albumin 3.9 g/dL (3.5-5.7); Albumin/Globulin Ratio 1.4 (1.1-2.2); Bilirubin,Indirect 0.4 mg/dL (0.0-1.2); Globulin 2.7 g/dL (2.4-3.5); Total Protein 6.6 g/dL (6.4-8.9)
[2018-04-16 18:01] LABS: BUN/Creatinine Ratio 15 (6-26); Blood Urea Nitrogen 15 mg/dL (8-23); Calcium 9.2 mg/dL (8.6-10.3); Carbon Dioxide 27 mEq/L (23-29); Chloride 100 mEq/L (98-107); Glucose 183 mg/dL (70-105); Lipase 11 Units/L (11-82); Osmolality,Calculated 268 (280-300); Sodium 126 mEq/L (136-145); eGFR For Non-African Americans 54 (> 60)
[2018-04-16 18:02] LABS: Troponin I < 0.03 ng/mL (< 0.04)
[2018-04-16] MEDS ORDERED: Isovue-370 500 ML INFUS..BTL IV ONE (18:27)
--- NOTE | 2018-04-16 19:47 | Internal Med History&Physical ---
Date of Encounter: 04/16/18 Time of Encounter: 19:46 Internal Medicine - H&P: HPI Chief complaint: SOB Admitted From: Home Plans for Post Hospital Care: Home History of present illness: Ms. Tan is a 88 year old female with history of arrhythmia not on anticoagulation, COPD on home oxygen, previous VTE and follicular lymphoma presented to the ED with sudden onset of shortness of breath. As per patient she woke up from sleep this morning and took off her oxygen. Was walking around her house and suddenly developed shortness of breath and chest tightness. She spoke with her daughter about her symptoms, her daughter gave her aspirin 325 and brought her to the emergency department for further evaluation. She reports that she had similar symptoms in the past and was admitted for COPD exacerbation. Shortness of breath is aggravated on ambulation and was relieved with oxygen and rest. She does report productive cough, ( white sputum) and does report wheezing. She is compliant with her home medications. She denies prolonged immobilization but does report remote history of VTE but is currently not on anticoagulation. While in the ED she was treated with oxygen. She she reported that all her symptoms had resolved. Denies any cardiac history, but she is a current every day smoker. she denies fever, chills, chest pain, palpitations, head trauma, Syncope, melena , hematochezia, hemoptysis, cold or heat intolerance. she is unsteady on her feet and has history of multiple falls - uses walker for ambulation Past Med Surg Social Fam HX - Past Medical History Medical history: COPD, DVT, hyperlipidemia, hypertension, malignancy, other Additional medical history: Non-Hodgkins Lymphoma Psychiatric history: no psych history - Past Surgical History Surgical History: appendectomy, cataract, cholecystectomy, hysterectomy - Social History Smoking Status: Current every day smoker Smokeless Tobacco Status: No Alcohol use: none Drug use: none - Family History Daughter Hx Family Cancer: Yes (cervical, bladder cancer) Internal Medicine - H&P: Meds RX: Aspirin 81 mg PO DAILY 07/10/15 [History] RX: amLODIPine [Norvasc] 10 mg PO DAILY 12/19/15 [History] RX: Albuterol Sulfate [Albuterol Inhaler] 2 puff IH Q4H PRN 02/12/17 [History] RX: Budesonide/Formoterol 160/4.5 [Symbicort 160/4.5] 2 puff IH BIDR 02/12/17 [ History] RX: Citalopram Hydrobromide [Citalopram HBr] 10 mg PO DAILY 02/12/17 [History] RX: Mirtazapine [Remeron] 30 mg PO HS 02/12/17 [History] RX: Ferrous Sulfate [Iron] 325 mg PO DAILY 03/29/18 [History] RX: Lactobacillus Acidophilus [Acidophilus] 1 cap PO DAILY 03/29/18 [History] RX: Multivitamin [One Daily Essential] 1 tab PO DAILY 03/29/18 [History] RX: [place]-3/Dha/Epa/Fish Oil [Fish Oil 1,000 mg Softgel] 1 cap PO DAILY [History] RX: Metoprolol XL (24 HR) Succ [Toprol Xl] 25 mg PO DAILY #30 tab.er.24h [Rx] RX: predniSONE [PredniSONE] 10 mg PO DAILY 8 Days #20 tablet 03/31/18 [Rx] hydrALAZINE [HydrALAZINE] 25 mg PO TID #90 tablet 03/31/18 [Rx] 3 Allergy/AdvReac Type Severity Reaction Status Date / Time No Known Allergies Allergy Verified 12/19/15 15:54 All Systems PM: review of systems was performed and is negative for pertinent findings except as documented above in the HPI. - Constitutional Vitals: Temp Pulse Resp BP Pulse Ox 99.6 F 95 19 112/70 94 04/16/18 16:09 04/16/18 18:25 04/16/18 18:25 04/16/18 18:25 04/16/18 18:25 - Other Additional findings: General: Patient is alert, oriented, no acute distress, speaks in full sentences Head: atraumatic, normocephalic, Eye: normal appearance, PERRL, no scleral icterus, no conjunctival injection ENT: mucous membranes moist, normal external ear exam Neck: normal inspection, trachea midline, full ROM, no carotid bruits Chest: normal inspection, symmetric chest rise, barrell shaped Respiratory: Good respiratory effort. Bilateral breath sounds coarse with occasional wheezing in the posterior lung castellanos, Cardiovascular: tachycardic, irregular , s1 and s2 No clicks, rubs, gallops, or murmors. Abdomen: Bowel sounds present normoactive x-4 quadrants. Abdomen is soft, nondistended. No guarding or rebound. No organomegaly noted, obese musculoskeletal: Spontaneously moving all extremities. no edema, no calf tenderness Skin: warm, dry, intact. Neuro: Alert and oriented x4. Sensation light touch intact. Cranial nerves 2- 12 is intact. Not aphasic, gait is steady, rapid hand movements intact, finger- to-nose intact, Psych: Patient's affect is normal Internal Med - H&P Results - Labs CBC & Chem 7: 04/16/18 16:16 04/16/18 16:16 Labs: Short CBC 04/16/18 Range/Units 16:16 WBC 13.7 H (4.3-11.1) K/mcL Hgb 12.0 (11.5-15.4) g/dL Hct 36.3 (35.3-44.9) % Plt Count 388 (140-400) K/mcL BMP 04/16/18 16:16 Sodium 126 L Potassium 4.0 Chloride 100 Carbon Dioxide 27 BUN 15 Creatinine 0.97 Glucose 183 H Calcium 9.2 Cardiac Enzymes 04/16/18 Range/Units 16:16 Troponin I < 0.03 (< 0.04) ng/mL Liver Function 04/16/18 Range/Units 16:19 Total Bilirubin 0.6 (0.3-1.0) mg/dL Direct Bilirubin 0.2 (0.0-0.2) mg/dL AST 17 (13-39) Units/L ALT 13 (7-52) Units/L Alkaline Phosphatase 86 (34-104) Units/L Albumin 3.9 (3.5-5.7) g/dL - EKG Data Prior EKG available for review: yes When compared to previous EKG: there are significant changes (Atrial flutter VS MAT rate is 95, QT 382 ) - Impressions ITS Impressions Chest X-Ray 04/16/18 16:16 IMPRESSION: Minimal bibasilar airspace opacity suggesting atelectasis or mild dependent edema. Pneumonia felt to be less likely. D/ / Rafael Vitale MD / Rafeal Vitale MD Interpreting Provider: Rafael Vitale MD - Assessment and plan (1) Shortness of breath Current Visit: Yes Status: Acute Assessment and plan: will rule out PE vs COPD exacerbation. wells criteria for PE 4.5. ( history of cancer, previous VTE) CTA was ordered by ED physician will follow results I spoke to the patient about anti coagulation and risks and benefits of AC - she does not want to start anticoagulation until she speaks with her son CXR ? congestion - will send BNP TTE was done 11/02/16- EF of 60% will send coags (2) COPD exacerbation Current Visit: No Status: Acute Assessment and plan: will start her on solumedrol 40 mg Q8H levaquin Duonebs will send sputum cx urine antigens oxygen via nasal cannula (3) Arrhythmia Current Visit: Yes Status: Acute Assessment and plan: EKG showing atrial flutter vs MAT will repeat EKG STAT previously was wokrked up for Atrial fibrillation on 12/04/15 and 12/22/15 for concerns of questionable atrial fibrillation, it was suspected that the EKG and tele were showing suspected sinus rhythm with frequent PACs. Consider cardiology consult in the AM will send TSH Tele monitoring CHAds vasc is 6 was continued on ASA on previous admissions secondary to frequent falls. I discussed with her the risk and benefits of AC. she would like to speak to her son about Anticoagulation and does not wish to start it now. Qualifiers: Arrhythmia type: atrial flutter Atrial flutter type: unspecified Qualified Code(s): I48.92 - Unspecified atrial flutter (4) Current every day smoker Current Visit: Yes Status: Acute Assessment and plan: was counseled on smoking cessation (5) Hyponatremia Current Visit: Yes Status: Acute Assessment and plan: will rule out SIADH vs medication induced will start her on gentle hydration with NS at 60 cc per hour for 12 hours ( wath for overload) TSH, free T4 and cortisol UA, urine lytes and urine osmolality Avoid diuretics and SSRI (6) DVT prophylaxis Current Visit: No Status: Acute Assessment and plan: heparin 5000 units SC Q8H - Time Spent With Patient Total time spent is greater than 50% in coordination of care (as documented) at patient's floor/unit and/or counseling patient:
[2018-04-16] MEDS ORDERED: Ipratropium/Albuterol Neb 3 ML IH SCH (20:15)
[2018-04-16] MEDS: Ipratropium/Albuterol Neb 3 ML IH SCH (20:55)
[2018-04-16] MEDS ORDERED: Levofloxacin 750 MG/150 ML 750 MG/150 ML BAG IVPB SCH (21:00)
[2018-04-16 21:27] LABS: Phosphorous 3.3 mg/dL (2.7-4.5)
[2018-04-16 21:37] LABS: INR 1.2
[2018-04-16 21:43] LABS: Thyroid Stimulating Hormone 0.526 mcIU/mL (0.340-5.600)
[2018-04-17] MEDS: MethylPREDNISolone 40 MG/ML VIAL IVP SCH ×4 (00:06→22:57)
[2018-04-17] MEDS: 0.9 % Sodium Chloride 1,000 ML IVC SCH ×2 (00:06→17:55)
[2018-04-17] MEDS: *HR* Heparin 5,000 UNIT/ML VIAL SQ SCH ×4 (00:07→21:19)
[2018-04-17] MEDS ORDERED: Ipratropium/Albuterol Neb 3 ML IH PRN (01:13)
[2018-04-17 04:38] LABS: Basophils % 0.2 %; Eosinophils % 0.3 %; Hematocrit 35.6 % (35.3-44.9); Hemoglobin 11.3 g/dL (11.5-15.4); Immature Granulocytes % 0.4 % (0-4); Lymphocytes # 0.5 K/mcL (0.6-4.6); Lymphocytes % 4.7 %; Mean Corpuscular HGB Conc 31.7 g/dL (31.6-35.5); Mean Corpuscular Volume 91.3 fL (83.0-100.0); Mean Platelet Volume 10.1 fL (9.4-12.4); Monocytes % 9.2 %; Neutrophils # 9.4 K/mcL (1.6-8.9); Platelet Count 384 K/mcL (140-400); Red Cell Distribution Width 14.6 % (11.5-14.5); Segmented Neutrophils % 85.2 %
[2018-04-17 04:55] LABS: BUN/Creatinine Ratio 16 (6-26); Blood Urea Nitrogen 16 mg/dL (8-23); Calcium 9.2 mg/dL (8.6-10.3); Carbon Dioxide 28 mEq/L (23-29); Chloride 96 mEq/L (98-107); Glucose 141 mg/dL (70-105); Osmolality,Calculated 272 (280-300); Potassium 4.3 mEq/L (3.5-5.1); Sodium 129 mEq/L (136-145); eGFR For Non-African Americans 52 (> 60)
[2018-04-17] MEDS: Lactobacillus 1 EACH CAP.SPRINK PO SCH (08:54)
[2018-04-17] MEDS: Multivit/Ca/Min/Fe/FA 1 TAB TABLET PO SCH (08:54)
[2018-04-17] MEDS: hydrALAZINE 25 MG TABLET PO SCH ×3 (08:54→21:18)
[2018-04-17] MEDS: Aspirin 81 MG TAB.CHEW PO SCH (08:54)
[2018-04-17] MEDS: amLODIPine 5 MG TABLET PO SCH (08:54)
[2018-04-17] MEDS: Fish Oil 1,000 Mg Softgel PO SCH (08:54)
[2018-04-17] MEDS ORDERED: Metoprolol XL (24 HR) Succ 25 MG TAB.ER.24H PO SCH (09:00)
[2018-04-17] MEDS: Ipratropium/Albuterol Neb 3 ML IH SCH ×2 (09:42→21:45)
[2018-04-17] MEDS: Budesonide/Formoterol 160/4.5 MDI IH SCH ×2 (09:44→21:45)
--- NOTE | 2018-04-17 12:37 | Internal Med Progress Note ---
Date of Encounter: 04/17/18 Time of Encounter: 12:35 - Assessment and plan (1) Shortness of breath Current Visit: Yes Status: Acute Assessment and plan: A 71-year-old female with past medical history of COPD, current smoker, atrial fibrillation not on Anticoagulation, and a frequent falls presented to the ED with dyspnea associated cough. Chest x-ray no acute change. CTA of chest no pulmonary embolism. Recent echocardiogram on 10/2017 revealed normal EF. She does not seem on him overloaded on physical exam. EKG and telemetry revealed atrial fibrillation with slightly elevated heart rate around 100-110. Patient has no history of atrial fibrillation but not on any anticoagulation due to frequent falls. Dyspnea improved after breathing treatment. - She has uncontrolled heart rate with atrial fibrillation, in the setting of COPD and a daily smoker, exacerbation of dyspnea is likely secondary to both pulmonary and cardiac situation. - continue current treatment for COPD including bronchodilators and affect IV steroids. Increase metoprolol XL from 25-50 mg to achieve HR less than 90. - Continue to hold anticoagulation for atrial fibrillation until discussed with family. (2) A-fib Current Visit: No Status: Resolved Assessment and plan: -Same as above. Qualifiers: Atrial fibrillation type: paroxysmal Qualified Code(s): I48.0 - Paroxysmal atrial fibrillation (3) COPD exacerbation Current Visit: No Status: Acute Assessment and plan: Same as above, continue IV Levaquin until sputum culture is available. (4) Current every day smoker Current Visit: Yes Status: Acute Assessment and plan: was counseled on smoking cessation (5) Hyponatremia Current Visit: Yes Status: Acute Assessment and plan: Patient on Celexa. Could have contributed to low sodium level. Continue IV fluid. Continue monitoring BMP. (6) DVT prophylaxis Current Visit: No Status: Acute Assessment and plan: heparin 5000 units SC Q8H - Time Spent With Patient Total time spent is greater than 50% in coordination of care (as documented) at patient's floor/unit and/or counseling patient: Greater than 35 minutes - Subjective Interval history: Patient reported improved respiratory symptoms. She is still having productive cough with yellow sputum, but has improved. Shortness breath has improved with breathing treatment. - Constitutional Vitals: Temp Pulse Resp BP Pulse Ox 97.5 F L 106 16 117/65 92 04/17/18 10:51 04/17/18 10:51 04/17/18 10:51 04/17/18 10:51 04/17/18 10:51 General appearance: Present: A&O X 3 Exam: PHYSICAL EXAMINATION: GENERAL APPEARANCE: The patient is alert, oriented and in no acute distress. HEENT: Head is normocephalic. The sinuses are nontender. Pupils are equal and reactive. The nares are patent. Oropharynx clear without lesions. NECK: Supple without lymphadenopathy. HEART: Regular rate and rhythm. LUNGS: No crackles or wheezes are heard. ABDOMEN: Soft, nontender, nondistended with good bowel sounds heard. Inguinal area is normal. EXTREMITIES: Without cyanosis, clubbing or edema. NEUROLOGICAL: Gross nonfocal. SKIN: Warm and dry without any rash. Internal Medicine: Result - Labs CBC & Chem 7: 04/17/18 03:12 04/17/18 03:12 Labs: Short CBC 04/17/18 Range/Units 03:12 WBC 11.1 (4.3-11.1) K/mcL Hgb 11.3 L (11.5-15.4) g/dL Hct 35.6 (35.3-44.9) % Plt Count 384 (140-400) K/mcL Neutrophils # 9.4 H (1.6-8.9) K/mcL BMP 04/17/18 03:12 Sodium 129 L Potassium 4.3 Chloride 96 L Carbon Dioxide 28 BUN 16 Creatinine 1.01 Glucose 141 H Calcium 9.2 - ABG Interpretation ABG results: PT/INR, D-dimer PT 13.0 Seconds (9.4-12.1) H 04/16/18 20:40 Consult Discharge Plan - Plan Referrals: NONE,PCP [Primary Care Provider] -
[2018-04-17] MEDS ORDERED: Metoprolol XL (24 HR) Succ 25 MG TAB.ER.24H PO ONE (14:00)
[2018-04-17 19:47] LABS: Bilirubin,Urine Negative (Negative); Blood,Urine Negative (Negative); Clarity,Urine Clear (Clear); Color,Urine Yellow (Yellow); Glucose,Urine (UA) Normal (Normal); Ketones,Urine Negative (Negative); Leukocyte Esterase,Urine Negative (Negative); Nitrite,Urine Negative (Negative); PH,Urine 5.5 pH Units (5.0-8.0); Protein,Urine 30 mg/dL (Neg-Trace); Specific Gravity,Urine > 1.030 (1.010-1.025); Urobilinogen,Urine Normal (Normal)
[2018-04-17 19:50] LABS: Bacteria,Urine Few per hpf (None-Few); Hyaline Casts,Urine None Seen per lpf (None-Few); Squamous Epithelial Cell,Urine Many per lpf (None-Few)
[2018-04-17 20:00] LABS: Sodium, Urine 14.5 mEq/L
[2018-04-17] MEDS: Mirtazapine 15 MG TABLET PO SCH (21:19)
[2018-04-17] MEDS ORDERED: hydrOXYzine pamoate 25 MG CAPSULE PO ONE (23:22)
[2018-04-17] MEDS ORDERED: Acetaminophen 325 MG TABLET PO ONE (23:24)
[2018-04-18] MEDS: *HR* Heparin 5,000 UNIT/ML VIAL SQ SCH ×3 (06:11→21:16)
[2018-04-18 06:13] LABS: Basophils % 0.1 %; Hematocrit 37.1 % (35.3-44.9); Hemoglobin 12.2 g/dL (11.5-15.4); Immature Granulocytes % 0.3 % (0-4); Lymphocytes # 0.4 K/mcL (0.6-4.6); Lymphocytes % 2.5 %; Mean Corpuscular HGB Conc 32.9 g/dL (31.6-35.5); Mean Corpuscular Volume 91.2 fL (83.0-100.0); Mean Platelet Volume 10.2 fL (9.4-12.4); Monocytes # 0.7 K/mcL (0.0-1.3); Monocytes % 4.1 %; Platelet Count 469 K/mcL (140-400); Red Blood Count 4.07 M/mcL (3.82-4.97); Red Cell Distribution Width 14.6 % (11.5-14.5)
[2018-04-18 06:15] LABS: Neutrophils # 15.4 K/mcL (1.6-8.9)
[2018-04-18 06:35] LABS: BUN/Creatinine Ratio 25 (6-26); Blood Urea Nitrogen 25 mg/dL (8-23); Calcium 9.3 mg/dL (8.6-10.3); Carbon Dioxide 23 mEq/L (23-29); Chloride 97 mEq/L (98-107); Glucose 193 mg/dL (70-105); Osmolality,Calculated 278 (280-300); Potassium 4.5 mEq/L (3.5-5.1); Sodium 129 mEq/L (136-145); eGFR For Non-African Americans 53 (> 60)
[2018-04-18] MEDS: Ipratropium/Albuterol Neb 3 ML IH SCH ×2 (07:45→23:01)
[2018-04-18] MEDS: Budesonide/Formoterol 160/4.5 MDI IH SCH ×2 (07:45→23:03)
[2018-04-18] MEDS: Metoprolol XL (24 HR) Succ 50 MG TAB.ER.24H PO SCH (08:19)
[2018-04-18] MEDS: Aspirin 81 MG TAB.CHEW PO SCH (08:19)
[2018-04-18] MEDS: hydrALAZINE 25 MG TABLET PO SCH ×3 (08:20→21:15)
[2018-04-18] MEDS: amLODIPine 5 MG TABLET PO SCH (08:20)
[2018-04-18] MEDS: Lactobacillus 1 EACH CAP.SPRINK PO SCH (08:20)
[2018-04-18] MEDS: Multivit/Ca/Min/Fe/FA 1 TAB TABLET PO SCH (08:20)
[2018-04-18] MEDS: MethylPREDNISolone 40 MG/ML VIAL IVP SCH (08:21)
[2018-04-18] MEDS ORDERED: Levofloxacin 750 MG/150 ML 750 MG/150 ML BAG IVPB SCH (09:00)
[2018-04-18 09:28] LABS: ABG Base Excess -1 mEq/L (-2 to 3); ABG HCO3 25 mEq/L (21-27); ABG Oxygen Saturation 91 % (95-98); ABG PCO2 48 mmHg (35-45); ABG PH 7.33 pH Units (7.32-7.45); ABG PO2 67 mmHg (85-104); ABG TCO2 26 mEq/L (20-26)
--- NOTE | 2018-04-18 11:01 | Internal Med Progress Note ---
Hospitalist Progress Note - Encounter Date of Encounter: 04/18/18 Time of Encounter: 10:59 - Subjective Interval History: Patient still complains of occasional shortness of breath and chest tightness. But overall she reports improved her respiratory symptoms. No cough, fever, or chills overnight. - Exam Vitals: Temp Pulse Resp BP Pulse Ox 97.5 F L 107 16 160/91 92 04/18/18 06:51 04/18/18 06:51 04/18/18 07:47 04/18/18 06:51 04/18/18 08:41 Exam: PHYSICAL EXAMINATION: GENERAL APPEARANCE: The patient is alert, oriented and in no acute distress. HEENT: Head is normocephalic. The sinuses are nontender. Pupils are equal and reactive. The nares are patent. Oropharynx clear without lesions. NECK: Supple without lymphadenopathy. HEART: Regular rate and rhythm. LUNGS: No crackles or wheezes are heard. ABDOMEN: Soft, nontender, nondistended with good bowel sounds heard. Inguinal area is normal. EXTREMITIES: Without cyanosis, clubbing or edema. NEUROLOGICAL: Gross nonfocal. SKIN: Warm and dry without any rash. - Assessment and Plan (1) Shortness of breath Current Visit: Yes Status: Acute Assessment and Plan: A 71-year-old female with past medical history of COPD, current smoker, atrial fibrillation not on Anticoagulation, and a frequent falls presented to the ED with dyspnea with associated cough. Chest x-ray no acute change. CTA of chest no pulmonary embolism. Recent echocardiogram on 10/2017 revealed normal EF. She does not seem fluid overloaded on physical exam. EKG and telemetry revealed atrial fibrillation with slightly elevated heart rate around 100-110. Patient has known history of atrial fibrillation but not on any anticoagulation due to frequent falls. - She has uncontrolled heart rate with atrial fibrillation, in the setting of COPD and a daily smoker, exacerbation of dyspnea is likely secondary to both pulmonary and cardiac situation. - metoprolol XL dose increased from 25-50 mg, HR 90-100 overnight. - ABG this am reassuring. Normal PH, slightly elevated PCO2 and satisfying PO2. IV steroid changed to oral, continue for 4 more days. Urine tests for Legionella and Streppneumo are negative, IV abx dc'ed. - Continue to hold anticoagulation for atrial fibrillation because of frequent falls. Plan: Pt can be discharged home tomorrow if symptoms continue to improve. (2) A-fib Current Visit: No Status: Resolved Assessment and Plan: -rate controlled, not on AC due to frequent falls. (3) COPD exacerbation Current Visit: No Status: Acute Assessment and Plan: Same as above. (4) Current every day smoker Current Visit: Yes Status: Acute Assessment and Plan: was counseled on smoking cessation (5) Hyponatremia Current Visit: Yes Status: Acute Assessment and Plan: Patient on Celexa. [facility] (6) DVT prophylaxis Current Visit: No Status: Acute Assessment and Plan: heparin 5000 units SC Q8H - Time Spent with Patient Total time spent is greater than 50% in coordination of care (as documented) at patient's floor/unit and/or counseling patient: Greater than 35 minutes Plan of Care Discussed with: patient Internal Medicine: Result - Labs CBC & Chem 7: 04/18/18 05:04 04/18/18 05:04 Labs: Short CBC 04/18/18 Range/Units 05:04 WBC 16.6 H (4.3-11.1) K/mcL Hgb 12.2 (11.5-15.4) g/dL Hct 37.1 (35.3-44.9) % Plt Count 469 H (140-400) K/mcL Neutrophils # 15.4 H (1.6-8.9) K/mcL BMP 04/18/18 05:04 Sodium 129 L Potassium 4.5 Chloride 97 L Carbon Dioxide 23 BUN 25 H Creatinine 0.99 Glucose 193 H Calcium 9.3 Urine 04/17/18 Range/Units 19:25 Urine Color Yellow (Yellow) Urine Clarity Clear (Clear) Urine pH 5.5 (5.0-8.0) pH Units Ur Specific [place] > 1.030 H (1.010-1.025) Urine Protein 30 H (Neg-Trace) mg/dL Urine Glucose (UA) Normal (Normal) mg/dL - ABG Interpretation ABG results: ABG ABG pH 7.33 pH Units (7.32-7.45) 04/18/18 09:24 ABG pCO2 48 mmHg (35-45) H 04/18/18 09:24 ABG pO2 67 mmHg (85-104) L 04/18/18 09:24 ABG O2 Saturation 91 % (95-98) L 04/18/18 09:24 PT/INR, D-dimer PT 13.0 Seconds (9.4-12.1) H 04/16/18 20:40 Consult Discharge Plan - Plan Referrals: Jason Reyes DO [Resident] - 04/20/18 10:30 am (2) A-fib Qualifiers: Atrial fibrillation type: paroxysmal Qualified Code(s): I48.0 - Paroxysmal atrial fibrillation
[2018-04-18] MEDS: PrednisoLONE Oral Soln 15 MG/5 ML UDC PO SCH (11:42)
[2018-04-18] MEDS: Fish Oil 1,000 Mg Softgel PO SCH (12:33)
[2018-04-18] MEDS ORDERED: *HR* LORazepam 1 MG TABLET PO ONE (13:48)
--- NOTE | 2018-04-18 17:35 | Electrocardiograph Report ---
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
[2018-04-18] MEDS: Mirtazapine 15 MG TABLET PO SCH (21:16)
[2018-04-19] MEDS ORDERED: Levofloxacin 750 MG/150 ML 750 MG/150 ML BAG IVPB SCH
[2018-04-19] MEDS: *HR* Heparin 5,000 UNIT/ML VIAL SQ SCH ×3 (05:23→21:01)
[2018-04-19 06:15] LABS: Basophils % 0.1 %; Hematocrit 36.6 % (35.3-44.9); Hemoglobin 11.7 g/dL (11.5-15.4); Immature Granulocytes % 0.4 % (0-4); Lymphocytes # 0.6 K/mcL (0.6-4.6); Lymphocytes % 3.2 %; Mean Corpuscular Hemoglobin 28.9 pg (28.0-33.3); Mean Corpuscular Volume 90.4 fL (83.0-100.0); Mean Platelet Volume 9.9 fL (9.4-12.4); Monocytes # 1.4 K/mcL (0.0-1.3); Monocytes % 7.5 %; Neutrophils # 16.7 K/mcL (1.6-8.9); Platelet Count 534 K/mcL (140-400); Red Blood Count 4.05 M/mcL (3.82-4.97); Red Cell Distribution Width 14.8 % (11.5-14.5); Segmented Neutrophils % 88.8 %
[2018-04-19 06:35] LABS: BUN/Creatinine Ratio 32 (6-26); Blood Urea Nitrogen 32 mg/dL (8-23); Calcium 9.5 mg/dL (8.6-10.3); Carbon Dioxide 24 mEq/L (23-29); Chloride 98 mEq/L (98-107); Glucose 175 mg/dL (70-105); Osmolality,Calculated 279 (280-300); Potassium 4.8 mEq/L (3.5-5.1); Sodium 129 mEq/L (136-145); eGFR For Non-African Americans 52 (> 60)
[2018-04-19] MEDS: Budesonide/Formoterol 160/4.5 MDI IH SCH ×2 (07:42→19:53)
[2018-04-19] MEDS: Ipratropium/Albuterol Neb 3 ML IH SCH ×5 (07:42→23:16)
[2018-04-19] MEDS: amLODIPine 5 MG TABLET PO SCH (08:26)
[2018-04-19] MEDS: Lactobacillus 1 EACH CAP.SPRINK PO SCH (08:26)
[2018-04-19] MEDS: Fish Oil 1,000 Mg Softgel PO SCH (08:26)
[2018-04-19] MEDS: PrednisoLONE Oral Soln 15 MG/5 ML UDC PO SCH (08:26)
[2018-04-19] MEDS: Metoprolol XL (24 HR) Succ 50 MG TAB.ER.24H PO SCH (08:27)
[2018-04-19] MEDS: hydrALAZINE 25 MG TABLET PO SCH ×3 (08:27→21:01)
[2018-04-19] MEDS: Multivit/Ca/Min/Fe/FA 1 TAB TABLET PO SCH (08:27)
[2018-04-19] MEDS: Aspirin 81 MG TAB.CHEW PO SCH (08:27)
[2018-04-19] MEDS: 0.9 % Sodium Chloride 1,000 ML IVC SCH (09:12)
[2018-04-19] MEDS ORDERED: Albuterol 2.5 MG/3 ML NEBULIZER IH PRN (11:12)
--- NOTE | 2018-04-19 16:15 | Internal Med Progress Note ---
Hospitalist Progress Note - Encounter Date of Encounter: 04/19/18 Time of Encounter: 10:50 - Subjective Interval History: Pt was seen and assessed at 1050 a.m. Pt has 2 family members at bedside who state that pt is not ready to return home and is not at her baseline. Pt states that she is ready to go home and that she is feeling well, however, pt is in obvious distress and is having conversational dyspnea that family states is worse than her baseline. Pt states that she has 02 and nebulizer treatments at home and wants to be discharged, however, pt realizes that she is not back to baseline and is agreeable to stay. - Exam Vitals: Temp Pulse Resp BP Pulse Ox 97.9 F 101 16 126/74 94 04/19/18 10:47 04/19/18 10:47 04/19/18 15:45 04/19/18 10:47 04/19/18 15:45 Exam: Patient is alert, awake, oriented, answers questions appropriately. She is conversive, speech is clear. There are no focal neurological deficits, no pronator drift or facial droop. Pupils are equal round reactive to light, no nystagmus, EOMI. Neck is supple, no tracheal deviation, no thyromegaly or cervical lynphadenopathy. S1 S2 heard without gallops, clicks, or murmurs, no tachycardia or bradycardia. Lungs are clear and diminished throughout. Abd is soft, slightly rounded, non-tender to palpation with BS present. Pt has no peripheral edema and peripheral pulses are +2 in upper and lower extermities. Skin is p/w/d, no rashes or lesions noted. - Assessment and Plan (1) A-fib Current Visit: No Status: Resolved Assessment and Plan: Rate controlled, not on AC due to frequent falls. Avg rate over 24 hours= 99. (2) DVT prophylaxis Current Visit: No Status: Acute Assessment and Plan: heparin 5000 units SC Q8H. Pt is not anticoagulated for a-fib due to frequent falls. (3) COPD exacerbation Current Visit: Yes Status: Acute Assessment and Plan: Pt with acute exacerbation of COPD. Pt was to be discharged today, however, on exam today she was in obvious distress. Pt had conversational dyspnea that family states was worse than baseline, and hypoxia per bedside monitor. 02 sats around 88-90%. Pt was given Duoneb and albuterol treatement when I checked back in on her, she was sleeping and sats were 93% on 02 at her baseline use. Mucinex added, Duonebs scheduled q4h and albuterol treatments q2h prn. Will continue to monitor her overnight and reassess for discharge tomorrow. Continue telemetry (4) Shortness of breath Current Visit: Yes Status: Chronic Assessment and Plan: Pt states that due to COPD, she is chronically SOB, per family she is worse than her baseline today. Plan as above. (5) Current every day smoker Current Visit: Yes Status: Chronic Assessment and Plan: Patient denies need for nicotine replacement therapy. Smoking cessation education completed (6) Hyponatremia Current Visit: Yes Status: Acute Assessment and Plan: Patient on Celexa. [facility] dating back to 2013. DVT Prophylaxis: Heparin SQ TID. - Time Spent with Patient Total time spent is greater than 50% in coordination of care (as documented) at patient's floor/unit and/or counseling patient: less than 15 minutes Plan of Care Discussed with: nurse Internal Medicine: Result - Labs CBC & Chem 7: 04/19/18 05:40 04/19/18 05:40 Labs: Short CBC 04/19/18 Range/Units 05:40 WBC 18.8 H (4.3-11.1) K/mcL Hgb 11.7 (11.5-15.4) g/dL Hct 36.6 (35.3-44.9) % Plt Count 534 H (140-400) K/mcL Neutrophils # 16.7 H (1.6-8.9) K/mcL BMP 04/19/18 05:40 Sodium 129 L Potassium 4.8 Chloride 98 Carbon Dioxide 24 BUN 32 H Creatinine 1.00 Glucose 175 H Calcium 9.5 - ABG Interpretation ABG results: ABG ABG pH 7.33 pH Units (7.32-7.45) 04/18/18 09:24 ABG pCO2 48 mmHg (35-45) H 04/18/18 09:24 ABG pO2 67 mmHg (85-104) L 04/18/18 09:24 ABG O2 Saturation 91 % (95-98) L 04/18/18 09:24 PT/INR, D-dimer PT 13.0 Seconds (9.4-12.1) H 04/16/18 20:40 Consult Discharge Plan - Plan Referrals: Jason Reyes DO [Resident] - 04/20/18 10:30 am (1) A-fib Qualifiers: Atrial fibrillation type: paroxysmal Qualified Code(s): I48.0 - Paroxysmal atrial fibrillation
--- NOTE | 2018-04-19 16:31 | Electrocardiograph Report ---
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
[2018-04-19] MEDS: Mirtazapine 15 MG TABLET PO SCH (21:01)
--- NOTE | 2018-04-19 22:44 | Event Note ---
Date of Encounter: 04/19/18 Time of Encounter: 21:20 Alerted by patient's nurse CINDY Berry that while she was doing her assessment of patient the patient stated "I do not have anything left to live for and if I had a gun I would shoot myself". Nurse asked the patient she was having thoughts of hurting herself and the patient stated "if I had a gun I would shoot myself but my son took it away from me and I do not have anything to live for. Will you help me ". Sitter ordered. Suicide precautions ordered. Psychiatric consult ordered and discussed with 1A. Pt. to be monitored closely.
[2018-04-19] MEDS ORDERED: *HR* LORazepam 2 MG/ML VIAL IVP ONE (23:01)
[2018-04-20 00:14] LABS: ABG Base Excess -1 mEq/L (-2 to 3); ABG HCO3 26 mEq/L (21-27); ABG Oxygen Saturation 96 % (95-98); ABG PCO2 50 mmHg (35-45); ABG PH 7.33 pH Units (7.32-7.45); ABG PO2 86 mmHg (85-104); ABG TCO2 28 mEq/L (20-26)
[2018-04-20] MEDS: Ipratropium/Albuterol Neb 3 ML IH SCH ×6 (03:41→23:14)
[2018-04-20] MEDS ORDERED: Acetaminophen 325 MG TABLET PO PRN (04:12)
[2018-04-20 05:01] LABS: Basophils % 0.1 %; Hematocrit 36.7 % (35.3-44.9); Hemoglobin 12.1 g/dL (11.5-15.4); Immature Granulocytes % 0.5 % (0-4); Lymphocytes # 0.8 K/mcL (0.6-4.6); Lymphocytes % 5.7 %; Mean Corpuscular Volume 90.8 fL (83.0-100.0); Mean Platelet Volume 9.8 fL (9.4-12.4); Monocytes # 1.4 K/mcL (0.0-1.3); Monocytes % 9.4 %; Neutrophils # 12.3 K/mcL (1.6-8.9); Platelet Count 534 K/mcL (140-400); Red Blood Count 4.04 M/mcL (3.82-4.97); Red Cell Distribution Width 14.7 % (11.5-14.5); Segmented Neutrophils % 84.3 %
[2018-04-20] MEDS: *HR* Heparin 5,000 UNIT/ML VIAL SQ SCH ×3 (05:09→22:36)
[2018-04-20 05:23] LABS: BUN/Creatinine Ratio 34 (6-26); Blood Urea Nitrogen 31 mg/dL (8-23); Calcium 9.5 mg/dL (8.6-10.3); Carbon Dioxide 24 mEq/L (23-29); Chloride 98 mEq/L (98-107); Glucose 149 mg/dL (70-105); Osmolality,Calculated 279 (280-300); Potassium 4.7 mEq/L (3.5-5.1); Sodium 130 mEq/L (136-145); eGFR For Non-African Americans 58 (> 60)
[2018-04-20 06:44] LABS: Bilirubin,Urine Negative (Negative); Blood,Urine Negative (Negative); Clarity,Urine Clear (Clear); Color,Urine Yellow (Yellow); Glucose,Urine (UA) Normal (Normal); Ketones,Urine Negative (Negative); Leukocyte Esterase,Urine Moderate (Negative); Nitrite,Urine Negative (Negative); PH,Urine 5.5 pH Units (5.0-8.0); Protein,Urine 30 mg/dL (Neg-Trace); Urobilinogen,Urine Normal (Normal)
[2018-04-20 06:45] LABS: Bacteria,Urine None Seen per hpf (None-Few); Hyaline Casts,Urine None Seen per lpf (None-Few); Squamous Epithelial Cell,Urine Many per lpf (None-Few); WBC,Urine 30-50 per hpf (0-3)
[2018-04-20] MEDS: Budesonide/Formoterol 160/4.5 MDI IH SCH ×2 (07:33→19:38)
[2018-04-20] MEDS: predniSONE 20 MG TABLET PO SCH (08:50)
[2018-04-20] MEDS: Multivit/Ca/Min/Fe/FA 1 TAB TABLET PO SCH (08:51)
[2018-04-20] MEDS: Metoprolol XL (24 HR) Succ 50 MG TAB.ER.24H PO SCH (08:51)
[2018-04-20] MEDS: Fish Oil 1,000 Mg Softgel PO SCH (08:51)
[2018-04-20] MEDS: Lactobacillus 1 EACH CAP.SPRINK PO SCH (08:51)
[2018-04-20] MEDS: amLODIPine 5 MG TABLET PO SCH (08:52)
[2018-04-20] MEDS: Aspirin 81 MG TAB.CHEW PO SCH (08:52)
[2018-04-20] MEDS: hydrALAZINE 25 MG TABLET PO SCH ×3 (08:52→20:08)
--- NOTE | 2018-04-20 18:07 | Internal Med Progress Note ---
Hospitalist Progress Note - Encounter Date of Encounter: 04/20/18 Time of Encounter: 11:00 - Subjective Interval History: Pt was seen and assessed at 1050 a.m. 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 Pt states that she is ready to go home and that she is feeling well, however, pt is in mild distress and is having conversational dyspnea. Pt did ambulate in the hallway with some difficulty, she using increased 02, and is agreeable to stay for evaluation of echo. Initially, daughter states that pt should be discharged and go home for 1 month, then come back. Son is at bedside , who is the POA. He agrees to have pt stay for evaluation of TTE changes and cardiology consultation in the morning. - Exam Vitals: Temp Pulse Resp BP Pulse Ox 98.1 F 91 18 124/78 95 04/20/18 15:31 04/20/18 15:31 04/20/18 16:12 04/20/18 15:04/20/18 16:12 Exam: Skin pwd, no rashes, lesions, redness Pt is alert and awake, oriented x 3 Speech is clear, PERRLA, EOMI, no nystagmus, no pronator drift. strength equal x 4 extremities Neck is supple, no tracheal deviation, no lymphadenopathy, tenderness, no thyromegaly S1S2 heard without gallops, clicks, murmurs, no bradycardia or tachycardia Lungs are clear and diminished throughout without wheezing, rales, or ronchi, respirations are slightly labored Abdomen is soft and non tender with bowel sound present Pt has no peripheral edema, pedal and radial pulses palpable bilaterally. - Assessment and Plan (1) A-fib Current Visit: No Status: Resolved Assessment and Plan: Rate controlled, not on AC due to frequent falls. Avg rate over 24 hours= 98. Denies chest pain (2) DVT prophylaxis Current Visit: No Status: Acute Assessment and Plan: Heparin SQ Q8H. Pt is not anticoagulated for a-fib due to frequent falls. (3) COPD exacerbation Current Visit: Yes Status: Acute Assessment and Plan: Pt with acute exacerbation of COPD. Pt was to be discharged 04/19, however, on exam she was in mild respiratory distress. 02 sats still less than 90% during assessment and pt is on increased amount of 02. Pt was given Duoneb and albuterol treatement when I checked back in on her, she was sleeping and sats were 93% on 02 at her baseline use. Mucinex added, Duonebs scheduled q4h and albuterol treatments q2h prn. Echo ordered for evaluation of worsening respiratory status, results below. Discussed with attending, recommend that pt have cardiology consult due to new changes of dilated aortic root, biatrial enlargement, and septal hypertrophy that was not present on TTE 10/2016. Continue telemetry Cardiology consulted. (4) Shortness of breath Current Visit: Yes Status: Chronic Assessment and Plan: Pt states that due to COPD, she is chronically SOB, per family she is at her baseline today. Plan as above. (5) Current every day smoker Current Visit: Yes Status: Chronic Assessment and Plan: Patient denies need for nicotine replacement therapy. Smoking cessation education completed (6) Hyponatremia Current Visit: Yes Status: Acute Assessment and Plan: Patient on Celexa. Na [facility] at [facility] Na+ 130 today. Resolved. Chronic hyponatremia dating back to 2013. DVT Prophylaxis: Heparin SQ - Time Spent with Patient Total time spent is greater than 50% in coordination of care (as documented) at patient's floor/unit and/or counseling patient: less than 15 minutes Plan of Care Discussed with: patient Internal Medicine: Result - Labs CBC & Chem 7: 04/20/18 03:58 04/20/18 03:58 Labs: Short CBC 04/20/18 Range/Units 03:58 WBC 14.6 H (4.3-11.1) K/mcL Hgb 12.1 (11.5-15.4) g/dL Hct 36.7 (35.3-44.9) % Plt Count 534 H (140-400) K/mcL Neutrophils # 12.3 H (1.6-8.9) K/mcL BMP 04/20/18 03:58 Sodium 130 L Potassium 4.7 Chloride 98 Carbon Dioxide 24 BUN 31 H Creatinine 0.91 Glucose 149 H Calcium 9.5 Urine 04/20/18 Range/Units 06:27 Urine Color Yellow (Yellow) Urine Clarity Clear (Clear) Urine pH 5.5 (5.0-8.0) pH Units Ur Specific [place] 1.020 (1.010-1.025) Urine Protein 30 H (Neg-Trace) mg/dL Urine Glucose (UA) Normal (Normal) mg/dL - ABG Interpretation ABG results: ABG ABG pH 7.33 pH Units (7.32-7.45) 04/20/18 00:10 ABG pCO2 50 mmHg (35-45) H 04/20/18 00:10 ABG pO2 86 mmHg (85-104) 04/20/18 00:10 ABG O2 Saturation 96 % (95-98) 04/20/18 00:10 PT/INR, D-dimer PT 13.0 Seconds (9.4-12.1) H 04/16/18 20:40 - Impressions Impressions Echocardiogram 04/20/18 09:02 Impressions: LVEF 60%. Basal septal hypertrophy. No LVOT obstruction. Indeterminate diastolic function. Normal right ventricular structure and function. Bi-atrial enlargement. Moderate mitral regurgitation. Mild-moderate thickened and calcified aortic valve leaflets. Leaflet excursion/morphology not optimally visualized. No significant dysfunction by Doppler. Moderate tricuspid regurgitation. Mild pulmonic regurgitation. Mild pulmonary hypertension. 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 Left Ventricular Wall Motion: Rest Echo Findings All wall segments showed normal motion. Findings: Study Quality * Technically adequate exam. ECG Findings * Atrial fibrillation. Left Ventricle * LVEF 60%. * Basal septal hypertrophy. No LVOT obstruction. * Indeterminate diastolic function. Right Ventricle * Normal right ventricular structure and function. Left Atrium * Severely dilated left atrium. Right Atrium * Moderately dilated right atrium. Mitral Valve * Normal mitral valve structure. * No mitral stenosis. * Moderate mitral regurgitation. Aortic Valve * No aortic regurgitation. * Aortic valve leaflet excursion and morphology not well visualized. * No aortic stenosis by Doppler obtained. * Mild-moderate thickened and calcified aortic valve leaflets. Tricuspid Valve * Normal tricuspid valve structure. * Moderate tricuspid regurgitation. * Estimated RA pressure is 20 mmHg. * Estimated RVSP is 47 mmHg. * Mild pulmonary hypertension. Pulmonic Valve * Pulmonic valve is not well visualized. * No pulmonic stenosis. * Mild pulmonic regurgitation. Pulmonary Artery * Pulmonary artery not well visualized. Aorta * Dilated proximal ascending aorta, 4.0 cm. Pericardium * There is no pericardial effusion present. Interatrial Septum * No evidence of PFO by color Doppler. IVC * The IVC is dilated. * < 50% respiratory change. Consult Discharge Plan - Plan Referrals: NONE,PCP [Primary Care Provider] - (1) A-fib Qualifiers: Qualified Code(s): I48.0 - Paroxysmal atrial fibrillation
--- NOTE | 2018-04-20 18:10 | Consult Note ---
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 Tan is a 88 year old female She is an 88-year-old white female. She is accompanied by 2 sons and to [id number]. Chief complaint: I do not see that such a good life. History of present illness. The patient then made a variety of statements and was rather disinhibited what she was saying. Nonetheless the patient's family reports that she gets meals they check on her every day and that she does not require further hospitalization for psychiatric reasons in their opinion. About 4 years ago she apparently made some statements and is now on Lexapro and mirtazapine. Currently the patient does not have a plan to kill herself in and denies this but she is frequently complaining and is upset with her limitations in her life. She tends to be negative and in spite of the fact that her children take her for rides in the car she says that she is not getting out enough. The patient cannot give me a psychiatric history in the family reports no significant problems with depression no previous suicide attempts and no previous geriatric psychiatric hospitalizations. They report that she has had a rather blunt and ornery personality. This is gotten worse over the years. 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 CC: Teresita Aguayo MD Past Med Surg Social Fam HX - Past Medical History Medical history: COPD, DVT, hyperlipidemia, hypertension, malignancy, other - Past Psychiatric History Psychiatric history: Reports: other Family psychiatric history: Unknown Family History of Suicide: Unknown - Past Surgical History Surgical History: appendectomy, cataract, cholecystectomy, hysterectomy - Social History Smoking Status: Current every day smoker Smokeless Tobacco Status: No Alcohol use: none Drug use: none Occupational status: retired Current living situation: Home - Independent Activity Level: Uses cane/walker Recent Out of Country Travel Within the Last 8 Weeks: No Exposure or Possible Exposure to Illness During Travel: No - Family History Daughter Hx Family Cancer: Yes (cervical, bladder cancer) Medications & Allergies Aspirin 81 mg PO DAILY 07/10/15 [History] amLODIPine [Norvasc] 10 mg PO DAILY 12/19/15 [History] Albuterol Sulfate [Albuterol Inhaler] 2 puff IH Q4H PRN 02/12/17 [History] Budesonide/Formoterol 160/4.5 [Symbicort 160/4.5] 2 puff IH BIDR 02/12/17 [ History] Mirtazapine [Remeron] 30 mg PO HS 02/12/17 [History] Ferrous Sulfate [Iron] 325 mg PO DAILY 03/29/18 [History] Lactobacillus Acidophilus [Acidophilus] 1 cap PO DAILY 03/29/18 [History] Multivitamin [One Daily Essential] 1 tab PO DAILY 03/29/18 [History] [place]-3/Dha/Epa/Fish Oil [Fish Oil 1,000 mg Softgel] 1 cap PO DAILY 03/29/18 [ History] Metoprolol XL (24 HR) Succ [Toprol Xl] 25 mg PO DAILY #30 tab.er.24h 03/31/18 [ Rx] hydrALAZINE [HydrALAZINE] 25 mg PO TID #90 tablet 03/31/18 [Rx] Escitalopram [Lexapro] 10 mg PO DAILY 04/17/18 [History] Ipratropium/Albuterol Neb [Duoneb] 3 ml IH Q6HR PRN 04/17/18 [History] 3 Allergy/AdvReac Type Severity Reaction Status Date / Time No Known Allergies Allergy Verified 12/19/15 15:54 Review of Systems Psychiatric: Reports: irritability Psychiatry Exam - Constitutional Vitals: Temp Pulse Resp BP Pulse Ox 98.1 F 91 18 124/78 95 04/20/18 15:31 04/20/18 15:31 04/20/18 16:12 04/20/18 15:04/20/18 16:12 General appearance: age & developmentally appropriate, well-groomed, well- nourished, thin - Psychiatric Patient Orientation: Yes Person, Yes Time, Yes Place Level of alertness: Alert Behavior: impulsive Psychomotor activity: Normal Eye Contact: Maintains Eye Contact Mood Description: Labile, Irritable Affect description: labile Speech Volume: Normal Speech pattern: normal rate Language & Vocabulary: consistent with education Thought Process: Intact Thought Content: No Suicidal ideation, No Homicidal ideation, No Overt delusions Perceptual Disturbances: No Auditory hallucinations, No Visual hallucinations Attention Span Ability: Capable of Focused Attention Memory Description: Grossly Intact Patient Reliability: Questionable Historian Intelligence Estimate: Average Judgment: Fair Insight: Partial Results - Labs Labs: Laboratory Last Values WBC 14.6 K/mcL (4.3-11.1) H 04/20/18 03:58 RBC 4.04 M/mcL (3.82-4.97) 04/20/18 03:58 Hgb 12.1 g/dL (11.5-15.4) 04/20/18 03:58 Hct 36.7 % (35.3-44.9) 04/20/18 03:58 MCV 90.8 fL (83.0-100.0) 04/20/18 03:58 MCH 30.0 pg (28.0-33.3) 04/20/18 03:58 MCHC 33.0 g/dL (31.6-35.5) 04/20/18 03:58 RDW 14.7 % (11.5-14.5) H 04/20/18 03:58 Plt Count 534 K/mcL (140-400) H 04/20/18 03:58 MPV 9.8 fL (9.4-12.4) 04/20/18 03:58 Immature Gran % 0.5 % (0-4) 04/20/18 03:58 Seg Neutrophils % 84.3 % 04/20/18 03:58 Lymphocytes % 5.7 % 04/20/18 03:58 Monocytes % 9.4 % 04/20/18 03:58 Eosinophils % 0.0 % 04/20/18 03:58 Basophils % 0.1 % 04/20/18 03:58 Neutrophils # 12.3 K/mcL (1.6-8.9) H 04/20/18 03:58 Lymphocytes # 0.8 K/mcL (0.6-4.6) 04/20/18 03:58 Monocytes # 1.4 K/mcL (0.0-1.3) H 04/20/18 03:58 Eosinophils # 0.0 K/mcL (0.0-0.6) 04/20/18 03:58 Basophils # 0.0 K/mcL (0.0-0.2) 04/20/18 03:58 PT 13.0 Seconds (9.4-12.1) H 04/16/18 20:40 INR 1.2 04/16/18 20:40 APTT 25.0 Seconds (26.0-36.0) L 04/16/18 20:40 Sample Site L Radial 04/20/18 00:10 ABG pH 7.33 pH Units (7.32-7.45) 04/20/18 00:10 ABG pCO2 50 mmHg (35-45) H 04/20/18 00:10 ABG pO2 86 mmHg (85-104) 04/20/18 00:10 ABG HCO3 26 mEq/L (21-27) 04/20/18 00:10 ABG Total CO2 28 mEq/L (20-26) H 04/20/18 00:10 ABG O2 Saturation 96 % (95-98) 04/20/18 00:10 ABG Base Excess -1 mEq/L (-2 to 3) 04/20/18 00:10 Gabriel Test Positive 04/20/18 00:10 O2 Delivery Device Cannula 04/20/18 00:10 Inspired O2 5.0 (1-15=lpm [id number]%) 04/20/18 00:10 Sodium 130 mEq/L (136-145) L 04/20/18 03:58 Potassium 4.7 mEq/L (3.5-5.1) 04/20/18 03:58 Chloride 98 mEq/L (98-107) 04/20/18 03:58 Carbon Dioxide 24 mEq/L (23-29) 04/20/18 03:58 BUN 31 mg/dL (8-23) H 04/20/18 03:58 Creatinine 0.91 mg/dL (0.60-1.20) 04/20/18 03:58 Est GFR ( Amer) > 60 (> 60) 04/20/18 03:58 Est GFR (Non-Af Amer) 58 (> 60) L 04/20/18 03:58 BUN/Creatinine Ratio 34 (6-26) H 04/20/18 03:58 Glucose 149 mg/dL (70-105) H 04/20/18 03:58 Calculated Osmolality 279 (280-300) L 04/20/18 03:58 Calcium 9.5 mg/dL (8.6-10.3) 04/20/18 03:58 Phosphorus 3.3 mg/dL (2.7-4.5) 04/16/18 20:40 Magnesium 2.0 mg/dL (1.6-2.6) 04/16/18 20:40 Total Bilirubin 0.6 mg/dL (0.3-1.0) 04/16/18 16:19 Direct Bilirubin 0.2 mg/dL (0.0-0.2) 04/16/18 16:19 Indirect Bilirubin 0.4 mg/dL (0.0-1.2) 04/16/18 16:19 AST 17 Units/L (13-39) 04/16/18 16:19 ALT 13 Units/L (7-52) 04/16/18 16:19 Alkaline Phosphatase 86 Units/L (34-104) 04/16/18 16:19 Troponin I < 0.03 ng/mL (< 0.04) 04/16/18 16:16 B-Natriuretic Peptide 295 pg/mL (Less than 100) H 04/16/18 20:40 Serum Total Protein 6.6 g/dL (6.4-8.9) 04/16/18 16:19 Albumin 3.9 g/dL (3.5-5.7) 04/16/18 16:19 Globulin 2.7 g/dL (2.4-3.5) 04/16/18 16:19 Albumin/Globulin Ratio 1.4 (1.1-2.2) 04/16/18 16:19 Lipase 11 Units/L (11-82) 04/16/18 16:16 TSH 0.526 mcIU/mL (0.340-5.600) 04/16/18 20:40 Free T4 0.99 ng/dl (0.70-2.00) 04/16/18 20:40 Random Cortisol 14.3 mcg/dl 04/16/18 20:39 Urine Color Yellow (Yellow) 04/20/18 06:27 Urine Clarity Clear (Clear) 04/20/18 06:27 Urine pH 5.5 pH Units (5.0-8.0) 04/20/18 06: Ur Specific [place] 1.020 (1.010-1.025) 04/20/18 06: Urine Protein 30 mg/dL (Neg-Trace) H 04/20/18 06: Urine Glucose (UA) Normal mg/dL (Normal) 04/20/18 06: Urine Ketones Negative mg/dL (Negative) 04/20/18 06: Urine Blood Negative (Negative) 04/20/18: Urine Nitrite Negative (Negative) 04/20/18: Urine Bilirubin Negative (Negative) 04/20/18: Urine Urobilinogen Normal mg/dL (Normal) 04/20/18: Ur Leukocyte Esterase Moderate (Negative) H 04/20/18: Urine Microscopic RBC 3-5 per hpf (0-3) H 04/20/18: Urine Microscopic WBC 30-50 per hpf (0-3) H 04/20/18 06: Ur Squamous Epith Cells Many per lpf (None-Few) H 04/20/18: Urine Bacteria None Seen per hpf (None-Few) 04/20/18 06 Hyaline Casts None Seen per lpf (None-Few) 04/20/18: Urine Osmolality 599 mOsm/kg (300-1090) 04/17/18 19:25 Urine Sodium 14.5 mEq/L 04/17/18 19:25 Urine Potassium 73.0 mEq/L 04/17/18 19:25 - Impressions Impressions Echocardiogram 04/20/18 09:02 Impressions: LVEF 60%. Basal septal hypertrophy. No LVOT obstruction. Indeterminate diastolic function. Normal right ventricular structure and function. Bi-atrial enlargement. Moderate mitral regurgitation. Mild-moderate thickened and calcified aortic valve leaflets. Leaflet excursion/morphology not optimally visualized. No significant dysfunction by Doppler. Moderate tricuspid regurgitation. Mild pulmonic regurgitation. Mild pulmonary hypertension. 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 Left Ventricular Wall Motion: Rest Echo Findings All wall segments showed normal motion. Findings: Study Quality * Technically adequate exam. ECG Findings * Atrial fibrillation. Left Ventricle * LVEF 60%. * Basal septal hypertrophy. No LVOT obstruction. * Indeterminate diastolic function. Right Ventricle * Normal right ventricular structure and function. Left Atrium * Severely dilated left atrium. Right Atrium * Moderately dilated right atrium. Mitral Valve * Normal mitral valve structure. * No mitral stenosis. * Moderate mitral regurgitation. Aortic Valve * No aortic regurgitation. * Aortic valve leaflet excursion and morphology not well visualized. * No aortic stenosis by Doppler obtained. * Mild-moderate thickened and calcified aortic valve leaflets. Tricuspid Valve * Normal tricuspid valve structure. * Moderate tricuspid regurgitation. * Estimated RA pressure is 20 mmHg. * Estimated RVSP is 47 mmHg. * Mild pulmonary hypertension. Pulmonic Valve * Pulmonic valve is not well visualized. * No pulmonic stenosis. * Mild pulmonic regurgitation. Pulmonary Artery * Pulmonary artery not well visualized. Aorta * Dilated proximal ascending aorta, 4.0 cm. Pericardium * There is no pericardial effusion present. Interatrial Septum * No evidence of PFO by color Doppler. IVC * The IVC is dilated. * < 50% respiratory change. Consult Discharge Plan - Plan Referrals: NONE,PCP [Primary Care Provider] -
[2018-04-20] MEDS: Mirtazapine 15 MG TABLET PO SCH (20:08)
[2018-04-20] MEDS ORDERED: Melatonin 3 MG TABLET PO PRN (22:43)
[2018-04-21] MEDS: Ipratropium/Albuterol Neb 3 ML IH SCH ×3 (04:20→11:28)
[2018-04-21] MEDS: *HR* Heparin 5,000 UNIT/ML VIAL SQ SCH (05:50)
[2018-04-21 06:32] LABS: Basophils % 0.1 %; Eosinophils % 0.2 %; Hematocrit 36.5 % (35.3-44.9); Immature Granulocytes % 0.9 % (0-4); Lymphocytes # 0.8 K/mcL (0.6-4.6); Lymphocytes % 7.1 %; Mean Corpuscular HGB Conc 32.9 g/dL (31.6-35.5); Mean Corpuscular Hemoglobin 29.7 pg (28.0-33.3); Mean Corpuscular Volume 90.3 fL (83.0-100.0); Mean Platelet Volume 9.6 fL (9.4-12.4); Monocytes # 1.1 K/mcL (0.0-1.3); Monocytes % 10.1 %; Neutrophils # 8.9 K/mcL (1.6-8.9); Platelet Count 481 K/mcL (140-400); Red Blood Count 4.04 M/mcL (3.82-4.97); Red Cell Distribution Width 14.7 % (11.5-14.5); Segmented Neutrophils % 81.6 %
[2018-04-21 06:49] LABS: BUN/Creatinine Ratio 33 (6-26); Blood Urea Nitrogen 26 mg/dL (8-23); Calcium 9.3 mg/dL (8.6-10.3); Carbon Dioxide 26 mEq/L (23-29); Chloride 96 mEq/L (98-107); Glucose 126 mg/dL (70-105); Osmolality,Calculated 274 (280-300); Potassium 4.6 mEq/L (3.5-5.1); Sodium 129 mEq/L (136-145); eGFR For Non-African Americans > 60 (> 60)
[2018-04-21 07:29] VITALS: BP 147/84
[2018-04-21] MEDS: Budesonide/Formoterol 160/4.5 MDI IH SCH (07:32)
[2018-04-21] MEDS: Aspirin 81 MG TAB.CHEW PO SCH (08:30)
[2018-04-21] MEDS: predniSONE 20 MG TABLET PO SCH (08:30)
[2018-04-21] MEDS: Lactobacillus 1 EACH CAP.SPRINK PO SCH (08:30)
[2018-04-21] MEDS: Multivit/Ca/Min/Fe/FA 1 TAB TABLET PO SCH (08:30)
[2018-04-21] MEDS: amLODIPine 5 MG TABLET PO SCH (08:30)
[2018-04-21] MEDS: hydrALAZINE 25 MG TABLET PO SCH (08:30)
[2018-04-21] MEDS: Metoprolol XL (24 HR) Succ 50 MG TAB.ER.24H PO SCH (08:30)
[2018-04-21] MEDS ORDERED: Acetaminophen 325 MG TABLET PO ONE (11:27)
--- NOTE | 2018-04-21 11:32 | Discharge Summary ---
- NOTES TO OUTPATIENT PROVIDER Notes to Outpatient Provider: Pt with mild CHF, placed on short course of Lasix. Reassess for continued need. Orders not resulted at time of discharge: Pending orders 04/22/18 04:00 Basic Metabolic Panel AM 0400 Complete Blood Count [HEME] AM 0400 Date of Encounter: 04/21/18 Time of Encounter: 11:10 - Discharge Diagnosis (1) A-fib Priority: Secondary Status: Resolved Assessment and Plan: Rate controlled, not on AC due to frequent falls. Avg rate over 24 hours= 91. Denies chest pain Continue Toprol XL Qualifiers: Atrial fibrillation type: paroxysmal Qualified Code(s): I48.0 - Paroxysmal atrial fibrillation (2) DVT prophylaxis Priority: Secondary Status: Acute Assessment and Plan: Heparin SQ Q8H. Pt is not anticoagulated for a-fib at home due to frequent falls. (3) COPD exacerbation Priority: Secondary Status: Acute Assessment and Plan: Pt with acute exacerbation of COPD. Pt was to be discharged 04/19, however, on exam she was in mild respiratory distress. 02 sats still less than 90% during assessment and pt is on increased amount of 02. Mucinex added, Duonebs scheduled q4h and albuterol treatments q2h prn. Echo ordered for evaluation of worsening respiratory status, results below. Cardiology consulted. No further recommendations at this time and will follow with pt in the office. Chest X-Ray 04/16/18 16:16 IMPRESSION: Minimal bibasilar airspace opacity suggesting atelectasis or mild dependent edema. Pneumonia felt to be less likely. D/ / Rafael Vitale MD / Rafael Vitale MD Interpreting Provider: Raafel Vitale MD Echocardiogram 04/20/18 09:02 Impressions: LVEF 60%. Basal septal hypertrophy. No LVOT obstruction. Indeterminate diastolic function. Normal right ventricular structure and function. Bi-atrial enlargement. Moderate mitral regurgitation. Mild-moderate thickened and calcified aortic valve leaflets. Leaflet excursion/morphology not optimally visualized. No significant dysfunction by Doppler. Moderate tricuspid regurgitation. Mild pulmonic regurgitation. Mild pulmonary hypertension. 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 Left Ventricular Wall Motion: Rest Echo Findings All wall segments showed normal motion. Findings: Study Quality * Technically adequate exam. ECG Findings * Atrial fibrillation. Left Ventricle * LVEF 60%. * Basal septal hypertrophy. No LVOT obstruction. * Indeterminate diastolic function. Right Ventricle * Normal right ventricular structure and function. Left Atrium * Severely dilated left atrium. Right Atrium * Moderately dilated right atrium. Mitral Valve * Normal mitral valve structure. * No mitral stenosis. * Moderate mitral regurgitation. Aortic Valve * No aortic regurgitation. * Aortic valve leaflet excursion and morphology not well visualized. * No aortic stenosis by Doppler obtained. * Mild-moderate thickened and calcified aortic valve leaflets. Tricuspid Valve * Normal tricuspid valve structure. * Moderate tricuspid regurgitation. * Estimated RA pressure is 20 mmHg. * Estimated RVSP is 47 mmHg. * Mild pulmonary hypertension. Pulmonic Valve * Pulmonic valve is not well visualized. * No pulmonic stenosis. * Mild pulmonic regurgitation. Pulmonary Artery * Pulmonary artery not well visualized. Aorta * Dilated proximal ascending aorta, 4.0 cm. Pericardium * There is no pericardial effusion present. Interatrial Septum * No evidence of PFO by color Doppler. IVC * The IVC is dilated. * < 50% respiratory change. (4) Shortness of breath Priority: Secondary Status: Chronic Assessment and Plan: Pt states that due to COPD she is chronically SOB, per family she is at her baseline today. Pt remains unchanged, continue home 02. Plan as above. (5) Current every day smoker Priority: Secondary Status: Chronic Assessment and Plan: Patient denies need for nicotine replacement therapy at discharge. . Smoking cessation education completed (6) Hyponatremia Priority: Secondary Status: Acute Assessment and Plan: Patient on Celexa. Na level at baseline currently, [facility]. Na+ 130 today. Stable Chronic hyponatremia dating back to 2013. (7) CHF (congestive heart failure) Priority: Secondary Status: Chronic Assessment and Plan: Mild acute exacerbation likely contributing to her shortness of breath. BNP was elevated on admission. Echocardiogram completed, patient with basal septal hypertrophy, biatrial enlargement, moderate TR, mild HI, moderate MR. She will follow up with cardiology in the office. I spoke with cardiology WINE PASTEURIZER by phone, no further recommendations at this time and will follow-up in the office. We will send patient with short course of Lasix 20 mg by mouth daily with recommended close follow-up with primary care and cardiology. Qualifiers: Heart failure type: unspecified Heart failure chronicity: acute on chronic Qualified Code(s): I50.9 - Heart failure, unspecified Hospital course: Ms. Tan is a 88 year old female with past medical history of depressive disorder, COPD, tobacco abuse, CHF, follicular lymphoma, A. fib, frequent falls. Patient presented to the emergency department with shortness of breath. She was treated for COPD exacerbation, improved slightly. Patient overall condition was hard to assess due to her presentation. Per family, patient can be dramatic at times and makes herself worse than what she is in an attempt to seek attention. Patient was to be discharged on 04/19, however she appeared to be worse. Overnight that night, she also reported that she was suicidal and would kill herself if she had a gun. She was evaluated and cleared by psychiatry. We increased her breathing treatments, oxygen, she seemed to improve. Echocardiogram was ordered to assess CHF was creating difficulty with breathing. She did have mildly elevated BNP on admission. She did have some changes on her echocardiogram, and a teresa consult with cardiology WINE PASTEURIZER, they did not feel that this was an emergent condition patient could follow up in the office. Patient was given Lasix 20 mg by mouth daily. Patient is insistent that she is going home today. Her family is insistent on taking her home today. They state when she gets home she will improve, "this is how she is." Patient has no leukocytosis. she is in A. fib is rate controlled. Hyponatremia has improved to 1:30. Patient appears to be hyponatremic chronically and is on 2 SSRIs, likely the cause. I counseled the patient on fluid restriction and daily weights. Family verbalized understanding. Patient has home O2 that she wears [id number]. She will be sent home with prescriptions for Lasix as above, guaifenesin for cough, and a steroid taper. She will be discharged in stable condition with follow-up with primary care and cardiology as scheduled. Discharge discussed with: patient, family - Time Spent with Patient Total time spent providing and/or coordinating discharge services: Less than 30 minutes - Discharge Medications Prescriptions: Furosemide [Lasix] 20 mg PO DAILY #5 tablet GuaiFENesin ER [Mucinex] 600 mg PO BID PRN #30 tbbp.12hr PRN Reason: Congestion predniSONE [PredniSONE] 10 mg PO DAILY #23 tablet Home Medications: Aspirin 81 mg PO DAILY 07/10/15 [History] amLODIPine [Norvasc] 10 mg PO DAILY 12/19/15 [History] Albuterol Sulfate [Albuterol Inhaler] 2 puff IH Q4H PRN 02/12/17 [History] Budesonide/Formoterol 160/4.5 [Symbicort 160/4.5] 2 puff IH BIDR 02/12/17 [ History] Mirtazapine [Remeron] 30 mg PO HS 02/12/17 [History] Ferrous Sulfate [Iron] 325 mg PO DAILY 03/29/18 [History] Lactobacillus Acidophilus [Acidophilus] 1 cap PO DAILY 03/29/18 [History] Multivitamin [One Daily Essential] 1 tab PO DAILY 03/29/18 [History] [place]-3/Dha/Epa/Fish Oil [Fish Oil 1,000 mg Softgel] 1 cap PO DAILY 03/29/18 [ History] Metoprolol XL (24 HR) Succ [Toprol Xl] 25 mg PO DAILY #30 tab.er.24h 03/31/18 [ Rx] hydrALAZINE [HydrALAZINE] 25 mg PO TID #90 tablet 03/31/18 [Rx] Escitalopram [Lexapro] 10 mg PO DAILY 04/17/18 [History] Ipratropium/Albuterol Neb [Duoneb] 3 ml IH Q6HR PRN 04/17/18 [History] Acetaminophen [Tylenol] 650 mg PO Q6HR PRN tablet 04/21/18 [Rx] Citalopram [CeleXA] 10 mg PO DAILY tablet 04/21/18 [Rx] Furosemide [Lasix] 20 mg PO DAILY #5 tablet 04/21/18 [Rx] GuaiFENesin ER [Mucinex] 600 mg PO BID PRN #30 tbbp.12hr 04/21/18 [Rx] predniSONE [PredniSONE] 10 mg PO DAILY #23 tablet 04/21/18 [Rx] Allergies/Adverse Reactions: 3 Allergy/AdvReac Type Severity Reaction Status Date / Time No Known Allergies Allergy Verified 12/19/15 15:54 Date of admission: 04/19/18 17:04 Primary care physician: PCP NONE Consults: 04/19/18 21:21 Consult to Psychiatry [CONS] Routine Consulting Provider: Psychiatry Beth Reason consult: Other Other reason and/or additional details: Suicidal ideation. Pt. reported to nurse that she had no reason to live and if she had a gun she would kill herself but her son took her gun away. Call Completed: Yes Discharging clinician: Stacia Valiente Anticipated date of discharge: 04/21/18 - Constitutional Vitals: Temp Pulse Resp BP Pulse Ox 98.1 F 70 15 147/84 94 04/21/18 07:28 04/21/18 07:28 04/21/18 07:28 04/21/18 07:28 04/21/18 07:28 General appearance: Present: cooperative, A&O X 3, pleasant, no acute distress, answers questions appropriately - Head Head exam: Present: atraumatic, normal inspection, normocephalic - Eye Eye exam: Present: normal appearance, conjuntiva pink, sclera anicteric - Neck Neck exam general surgery: Present: supple, trachea midline. Absent: lymphadenopathy - Respiratory Respiratory exam: Present: decreased breath sounds, CTAB, rhonchi. Absent: accessory muscle use, chest wall tenderness, rales, respiratory distress, wheezes - Cardiovascular Cardiovascular exam: Present: RRR, +S1, +S2. Absent: diastolic murmur, gallop, rubs, systolic murmur - GI/Abdominal GI/Abdominal exam: Present: normal bowel sounds, soft. Absent: distended, hepatomegaly, tenderness - Extremities Exam Extremities exam: Present: normal capillary refill, normal inspection, warm, radial pulses palpable and symmetrical. Absent: calf tenderness, cyanotic, pedal edema, tenderness - Neurological Exam Neurological exam: Present: alert, oriented X3, no focal deficits. Absent: facial droop, speech deficit - Skin Skin exam: Present: dry, intact, normal color, warm. Absent: rash - Patient Status Disposition: Home, Self-Care Condition: Good Functional capacity at discharge: uses cane/walker Overall status at discharge: patient is progressing back to baseline - Discharge Instructions Follow Up With: NONE,PCP [Primary Care Provider] - Additional Instructions: Take your medications as directed. Follow-up with your primary care provider and cardiology as scheduled. Your new medications were sent to your pharmacy. Return to the emergency department immediately if you have any other problems or concerns, or if your symptoms return or worsen. Return to your normal activities and diet as tolerated. We are your oxygen while at home. - Diet and Activity Activity: increase activity as tolerated, wear oxygen at all times Diet: advance to your usual diet
== END 2018-04-21 12:21 | disposition home or self-care (01) | DRG 191 ==
LOC: EMEROO 16:02 → 3BNU 16:02
PROVIDERS: ADMIT Internal Medicine; ATTEND Internal Medicine

== ENCOUNTER 2018-05-15 14:40 | Observation (INO) ==
--- NOTE | 2018-05-15 14:44 | Emergency Department Note ---
Disposition Clinical Impression: Pleural effusion CHF (congestive heart failure) Qualifiers: Heart failure type: diastolic Heart failure chronicity: acute on chronic Qualified Code(s): I50.33 - Acute on chronic diastolic (congestive) heart failure Atrial fibrillation Qualifiers: Atrial fibrillation type: chronic Qualified Code(s): I48.2 - Chronic atrial fibrillation Disposition: Admitted As Inpatient Condition: Fair Time of Disposition: 16:04 General Adult HPI - General Stated complaint: Right Side Pain Time Seen by Provider: 05/15/18 14:42 Source: patient, family, EMS Mode of arrival: EMS Limitations: age Nursing Notes Reviewed: Yes Vital Signs Reviewed: Yes - History of Present Illness HPI Narrative: Patient presents to ED the chief complaint of right-sided chest pain and shortness of breath. Patient is oxygen dependent COPD. He has been in and out of the hospital for similar symptoms. EMS states they were called for increasing shortness breath and right-sided pain. Family states that they got there and she had her oxygen on, but it was not turned on. States her sats were okay, but her work of breathing seemed to be increased. No fever or chills. Mild nonproductive cough. Reporting chest tightness and right-sided chest pain. No abdominal pain, nausea, vomiting or diarrhea. - Related Data Home Medications Medication Instructions Recorded Confirmed Aspirin 81 mg PO DAILY 07/10/15 05/15/18 amLODIPine [Norvasc] 10 mg PO DAILY 12/19/15 05/15/18 Albuterol Sulfate [Albuterol 2 puff IH Q4H PRN 02/12/17 05/15/18 Inhaler] Budesonide/Formoterol 160/4.5 2 puff IH BIDR 02/12/17 05/15/18 [Symbicort 160/4.5] Mirtazapine [Remeron] 30 mg PO HS 02/12/17 05/15/18 Ferrous Sulfate [Iron] 325 mg PO DAILY 03/29/18 05/15/18 Lactobacillus Acidophilus 1 cap PO DAILY 03/29/18 05/15/18 [Acidophilus] Multivitamin [One Daily Essential] 1 tab PO DAILY 03/29/18 05/15/18 [place]-3/Dha/Epa/Fish Oil [Fish Oil 1 cap PO DAILY 03/29/18 05/15/18 1,000 mg Softgel] Escitalopram [Lexapro] 10 mg PO DAILY 04/17/18 05/15/18 Ipratropium/Albuterol Neb [Duoneb] 3 ml IH Q6HR PRN 04/17/18 05/15/18 Tiotropium [place] [Spiriva 2 puff IH DAILY 05/15/18 05/15/18 Respimat] Previous Rx's Medication Instructions Recorded Metoprolol XL (24 HR) Succ [Toprol 25 mg PO DAILY #30 tab.er.24h 03/31/18 Xl] hydrALAZINE [HydrALAZINE] 25 mg PO TID #90 tablet 03/31/18 Acetaminophen [Tylenol] 650 mg PO Q6HR PRN tablet 04/21/18 Allergies Allergy/AdvReac Type Severity Reaction Status Date / Time No Known Allergies Allergy Verified 12/19/15 15:54 Review of Systems: As reviewed in the HPI. All other systems reviewed are negative or normal. Past Medical History - Past Medical History Attestation: Yes The following information was validated with the patient. 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 - Social History Smoking Status: Current every day smoker Smokeless Tobacco Status: No Alcohol use: Reports: none Drug use: Reports: none Physical Exam CONSTITUTIONAL: [Chronically ill-appearing, alert and in no acute distress] EYES: [EOMI, clear conjunctiva, PERRLA] HENT: [Normocephalic, atraumatic, moist mucus membranes, normal oropharynx] NECK: [normal inspection, full ROM, trachea midline, no obvious swelling] PULMONARY: [normal lung sounds bilaterally, normal chest rise and fall, no respiratory distress or stridor, no wheezes, no rales, no rhonchi CARDIOVASCULAR: [regular rate, regular rhythm, systolic murmur, distal extremities are warm and well perfused] GASTROINSTESTINAL: [soft, non-tender, non-rigid, non-distended, no guarding, no rebound, normal bowel sounds] GENITOURINARY/RECTAL: [deferred] NEUROLOGIC: [Alert, oriented x3, normal speech, moves all extremities] EXTREMITIES: [Normal inspection, full ROM, no tenderness, trace pedal edema, normal capillary refill] MUSCULOSKELETAL: [no gross deformities, atraumatic] SKIN: [No cyanosis, no diaphoresis, normal color, warm, no rash] PSYCHIATRIC: [Agitated] Course Course Narrative: Patient presenting with shortness of breath and right-sided chest pain. We will workup and admit. BNP is up, and patient has pleural effusions. Will give lasix since BP is too low for NTG. Will admit to floor. Does not need BiPAP at this time but patient on lasix and home but is continuing to get worse per family. Vital Signs Temperature 0 F L 05/15/18 14:44 Pulse Rate 96 05/15/18 14:44 Respiratory Rate 18 05/15/18 14:44 Blood Pressure 116/79 05/15/18 14:44 O2 Sat by Pulse Oximetry 95 05/15/18 14:44 Temperature 0 F L 05/15/18 14:44 Pulse Rate 102 05/15/18 14:59 Respiratory Rate 18 05/15/18 14:59 Blood Pressure 119/74 05/15/18 14:59 O2 Sat by Pulse Oximetry 94 05/15/18 14:59 Oxygen Delivery Oxygen Delivery Room Air Medical Decision Making - Medical Records Medical records reviewed: Yes I reviewed the patient's medical records. - Lab Data Lab results reviewed: Yes I reviewed the patient's lab results. Result diagrams: 05/15/18 14:53 05/15/18 14:53 Lab Results 05/15/18 05/15/18 05/15/18 Range/Units 14:42 14:43 14:43 WBC (4.3-11.1) K/mcL RBC (3.82-4.97) M/mcL Hgb (11.5-15.4) g/dL Hct (35.3-44.9) % MCV (83.0-100.0) fL MCH (28.0-33.3) pg MCHC (31.6-35.5) g/dL RDW (11.5-14.5) % Plt Count (140-400) K/mcL MPV (9.4-12.4) fL Immature Gran % (0-4) % Seg Neutrophils % % Lymphocytes % % Monocytes % % Eosinophils % % Basophils % % Neutrophils # (1.6-8.9) K/mcL Lymphocytes # (0.6-4.6) K/mcL Monocytes # (0.0-1.3) K/mcL Eosinophils # (0.0-0.6) K/mcL Basophils # (0.0-0.2) K/mcL PT 13.6 H (9.4-12.1) Seconds INR 1.2 APTT 34.0 (26.0-36.0) Seconds Sodium (136-145) mEq/L Potassium (3.5-5.1) mEq/L Chloride (98-107) mEq/L Carbon Dioxide (23-29) mEq/L BUN (8-23) mg/dL Creatinine (0.60-1.20) mg/dL Est GFR ( Amer) (> 60) Est GFR (Non-Af Amer) (> 60) BUN/Creatinine Ratio (6-26) Glucose (70-105) mg/dL Calculated Osmolality (280-300) Lactic Acid (0.5-2.2) mmol/L Calcium (8.6-10.3) mg/dL Total Bilirubin 0.4 (0.3-1.0) mg/dL Direct Bilirubin 0.2 (0.0-0.2) mg/dL Indirect Bilirubin 0.2 (0.0-1.2) mg/dL AST 21 (13-39) Units/L ALT 16 (7-52) Units/L Alkaline Phosphatase 108 H (34-104) Units/L Troponin I (< 0.04) ng/mL B-Natriuretic Peptide 376 H (Less than 100) pg/mL Serum Total Protein 7.1 (6.4-8.9) g/dL Albumin 3.7 (3.5-5.7) g/dL Globulin 3.4 (2.4-3.5) g/dL Albumin/Globulin Ratio 1.1 (1.1-2.2) Lipase (11-82) Units/L 05/15/18 05/15/18 05/15/18 Range/Units 14:43 14:53 14:53 WBC 8.4 (4.3-11.1) K/mcL RBC 4.24 (3.82-4.97) M/mcL Hgb 12.3 (11.5-15.4) g/dL Hct 38.4 (35.3-44.9) % MCV 90.6 (83.0-100.0) fL MCH 29.0 (28.0-33.3) pg MCHC 32.0 (31.6-35.5) g/dL RDW 14.7 H (11.5-14.5) % Plt Count 589 H (140-400) K/mcL MPV 9.6 (9.4-12.4) fL Immature Gran % 0.2 (0-4) % Seg Neutrophils % 79.8 % Lymphocytes % 6.2 % Monocytes % 12.9 % Eosinophils % 0.8 % Basophils % 0.1 % Neutrophils # 6.7 (1.6-8.9) K/mcL Lymphocytes # 0.5 L (0.6-4.6) K/mcL Monocytes # 1.1 (0.0-1.3) K/mcL Eosinophils # 0.1 (0.0-0.6) K/mcL Basophils # 0.0 (0.0-0.2) K/mcL PT (9.4-12.1) Seconds INR APTT (26.0-36.0) Seconds Sodium (136-145) mEq/L Potassium (3.5-5.1) mEq/L Chloride (98-107) mEq/L Carbon Dioxide (23-29) mEq/L BUN (8-23) mg/dL Creatinine (0.60-1.20) mg/dL Est GFR ( Amer) (> 60) Est GFR (Non-Af Amer) (> 60) BUN/Creatinine Ratio (6-26) Glucose (70-105) mg/dL Calculated Osmolality (280-300) Lactic Acid 1.7 (0.5-2.2) mmol/L Calcium (8.6-10.3) mg/dL Total Bilirubin (0.3-1.0) mg/dL Direct Bilirubin (0.0-0.2) mg/dL Indirect Bilirubin (0.0-1.2) mg/dL AST (13-39) Units/L ALT (7-52) Units/L Alkaline Phosphatase (34-104) Units/L Troponin I (< 0.04) ng/mL B-Natriuretic Peptide (Less than 100) pg/mL Serum Total Protein (6.4-8.9) g/dL Albumin (3.5-5.7) g/dL Globulin (2.4-3.5) g/dL Albumin/Globulin Ratio (1.1-2.2) Lipase 7 L (11-82) Units/L 05/15/18 Range/Units 14:53 WBC (4.3-11.1) K/mcL RBC (3.82-4.97) M/mcL Hgb (11.5-15.4) g/dL Hct (35.3-44.9) % MCV (83.0-100.0) fL MCH (28.0-33.3) pg MCHC (31.6-35.5) g/dL RDW (11.5-14.5) % Plt Count (140-400) K/mcL MPV (9.4-12.4) fL Immature Gran % (0-4) % Seg Neutrophils % % Lymphocytes % % Monocytes % % Eosinophils % % Basophils % % Neutrophils # (1.6-8.9) K/mcL Lymphocytes # (0.6-4.6) K/mcL Monocytes # (0.0-1.3) K/mcL Eosinophils # (0.0-0.6) K/mcL Basophils # (0.0-0.2) K/mcL PT (9.4-12.1) Seconds INR APTT (26.0-36.0) Seconds Sodium 131 L (136-145) mEq/L Potassium 4.4 (3.5-5.1) mEq/L Chloride 95 L (98-107) mEq/L Carbon Dioxide 27 (23-29) mEq/L BUN 16 (8-23) mg/dL Creatinine 0.87 (0.60-1.20) mg/dL Est GFR ( Amer) > 60 (> 60) Est GFR (Non-Af Amer) > 60 (> 60) BUN/Creatinine Ratio 18 (6-26) Glucose 227 H (70-105) mg/dL Calculated Osmolality 280 (280-300) Lactic Acid (0.5-2.2) mmol/L Calcium 9.6 (8.6-10.3) mg/dL Total Bilirubin (0.3-1.0) mg/dL Direct Bilirubin (0.0-0.2) mg/dL Indirect Bilirubin (0.0-1.2) mg/dL AST (13-39) Units/L ALT (7-52) Units/L Alkaline Phosphatase (34-104) Units/L Troponin I < 0.03 (< 0.04) ng/mL B-Natriuretic Peptide (Less than 100) pg/mL Serum Total Protein (6.4-8.9) g/dL Albumin (3.5-5.7) g/dL Globulin (2.4-3.5) g/dL Albumin/Globulin Ratio (1.1-2.2) Lipase (11-82) Units/L - Radiology Data Radiology results reviewed: Yes I reviewed the patient's radiology results. - EKG Data EKG #1 EKG attestation: Yes I reviewed and interpreted this EKG. EKG results narrative: a-fib, rate 107, prolonged QTc at 525, indeterminate axis, no acute ischemic changes Attestation Statement - Attestation Attestation: I examined this patient and my medical decision-making was reviewed with the Resident Physician. I agree with the documented findings, disposition and treatment plan as described except to the extent set forth below. Findings consistent with pulmonary edema, pleural effusions, volume overload. We will initiate diuresis, admitted for further management and ongoing diuresis.
[2018-05-15 15:08] LABS: Basophils % 0.1 %; Eosinophils # 0.1 K/mcL (0.0-0.6); Eosinophils % 0.8 %; Hematocrit 38.4 % (35.3-44.9); Hemoglobin 12.3 g/dL (11.5-15.4); Immature Granulocytes % 0.2 % (0-4); Lymphocytes # 0.5 K/mcL (0.6-4.6); Lymphocytes % 6.2 %; Mean Corpuscular Volume 90.6 fL (83.0-100.0); Mean Platelet Volume 9.6 fL (9.4-12.4); Monocytes # 1.1 K/mcL (0.0-1.3); Monocytes % 12.9 %; Neutrophils # 6.7 K/mcL (1.6-8.9); Platelet Count 589 K/mcL (140-400); Red Blood Count 4.24 M/mcL (3.82-4.97); Red Cell Distribution Width 14.7 % (11.5-14.5); Segmented Neutrophils % 79.8 %
[2018-05-15 15:17] LABS: INR 1.2; Prothrombin Time 13.6 Seconds (9.4-12.1)
[2018-05-15 15:28] LABS: Albumin 3.7 g/dL (3.5-5.7); Albumin/Globulin Ratio 1.1 (1.1-2.2); Bilirubin,Direct 0.2 mg/dL (0.0-0.2); Bilirubin,Indirect 0.2 mg/dL (0.0-1.2); Bilirubin,Total 0.4 mg/dL (0.3-1.0); Globulin 3.4 g/dL (2.4-3.5); Total Protein 7.1 g/dL (6.4-8.9)
[2018-05-15 15:29] LABS: BUN/Creatinine Ratio 18 (6-26); Blood Urea Nitrogen 16 mg/dL (8-23); Calcium 9.6 mg/dL (8.6-10.3); Carbon Dioxide 27 mEq/L (23-29); Chloride 95 mEq/L (98-107); Glucose 227 mg/dL (70-105); Osmolality,Calculated 280 (280-300); Potassium 4.4 mEq/L (3.5-5.1); Sodium 131 mEq/L (136-145); eGFR For Non-African Americans > 60 (> 60)
[2018-05-15 15:30] LABS: Troponin I < 0.03 ng/mL (< 0.04)
[2018-05-15] MEDS ORDERED: Furosemide 40 MG/4 ML VIAL IVP ONE (15:49)
[2018-05-15] MEDS ORDERED: Naloxone 0.4 MG/ML INJ IVP PRN (16:39)
[2018-05-15] MEDS ORDERED: Nitroglycerin 0.4 MG TAB.SUBL SL PRN (16:47)
--- NOTE | 2018-05-15 16:55 | Internal Med History&Physical ---
Date of Encounter: 05/15/18 Time of Encounter: 16:53 Internal Medicine - H&P: HPI Chief complaint: Shortness of breath Admitted From: Home Plans for Post Hospital Care: Home History of present illness: Ms. Tan is a 88 year old female past medical history significant for COPD 2 L of home oxygen, non-hodgkins lymphoma, DVT, hyperlipidemia, hypertension, depression. Patient was brought to the emergency room due to sudden onset of shortness of breath while she was sitting at home. SOB was associated with right sided 8/10 stabbing chest pain, radiating to her back. no alleviating or aggravating factors. Patient report, non-productive couch, denies fever, chills or nausea or vomiting. 2 pillows orthopnea. denies palpitations, or lightheadedness. As per patient's son the patient did not have Oxygen machine turned on when he got home to bring the patient to the ED and he cannot recall for how long the patient was off her oxygen. Past Med Surg Social Fam HX - Past Medical History Medical history: COPD, DVT, hyperlipidemia, hypertension, malignancy, other Additional medical history: melona Psychiatric history: other - Past Surgical History Surgical History: appendectomy, cataract, cholecystectomy, hysterectomy - Social History Smoking Status: Current every day smoker Smokeless Tobacco Status: No Alcohol use: none Drug use: none - Family History Daughter Hx Family Cancer: Yes (cervical, bladder cancer) Internal Medicine - H&P: Meds Aspirin 81 mg PO DAILY 07/10/15 [History] amLODIPine [Norvasc] 10 mg PO DAILY 12/19/15 [History] Albuterol Sulfate [Albuterol Inhaler] 2 puff IH Q4H PRN 02/12/17 [History] Budesonide/Formoterol 160/4.5 [Symbicort 160/4.5] 2 puff IH BIDR 02/12/17 [ History] Mirtazapine [Remeron] 30 mg PO HS 02/12/17 [History] Ferrous Sulfate [Iron] 325 mg PO DAILY 03/29/18 [History] Lactobacillus Acidophilus [Acidophilus] 1 cap PO DAILY 03/29/18 [History] Multivitamin [One Daily Essential] 1 tab PO DAILY 03/29/18 [History] [place]-3/Dha/Epa/Fish Oil [Fish Oil 1,000 mg Softgel] 1 cap PO DAILY 03/29/18 [ History] Metoprolol XL (24 HR) Succ [Toprol Xl] 25 mg PO DAILY #30 tab.er.24h 03/31/18 [ Rx] hydrALAZINE [HydrALAZINE] 25 mg PO TID #90 tablet 03/31/18 [Rx] Escitalopram [Lexapro] 10 mg PO DAILY 04/17/18 [History] Ipratropium/Albuterol Neb [Duoneb] 3 ml IH Q6HR PRN 04/17/18 [History] Acetaminophen [Tylenol] 650 mg PO Q6HR PRN tablet 04/21/18 [Rx] Tiotropium [place] [Spiriva Respimat] 2 puff IH DAILY 05/15/18 [History] 3 Allergy/AdvReac Type Severity Reaction Status Date / Time No Known Allergies Allergy Verified 12/19/15 15:54 All Systems PM: A 10-system review of systems was performed and is negative for pertinent findings except as documented above in the HPI. - Constitutional Constitutional: fatigue, no excessive sweating, no fever(s), no lethargy, no malaise, no weakness - EENT Nose, mouth and throat: no bleeding gums, no mouth lesions, no nasal discharge - Cardiovascular Cardiovascular ROS IM: chest pain (right sided chest pain. ), dyspnea, dyspnea on exertion, no claudication, no edema, no lightheadedness, no palpitations - Respiratory Respiratory: cough (non-productive), dyspnea, pain on inspiration, no wheezing, no stridor, no pain with cough - Gastrointestinal Gastrointestinal: no abdominal pain, no change in bowel habits, no diarrhea, no dysphagia, no excessive flatus, no melena - Genitourinary Genitourinary: no dysuria, no hematuria - Musculoskeletal Musculoskeletal ROS IM: no atrophy, no muscle cramps, no neck pain, no numbness - Neurological Neurological ROS: no abnormal speech, no headache(s), no tremor(s) - Psychiatric Psychiatric: no depression, no suicidal ideation - Endocrine Endocrine IM: no flushing, no polyphagia, no polyuria - Hematologic/Lymphatic Hematologic/Lymphatic: no easy bruising - Constitutional Vitals: Temp Pulse Resp BP Pulse Ox 0 F L 102 18 119/74 94 05/15/18 14:44 05/15/18 14:59 05/15/18 14:59 05/15/18 14:59 05/15/18 14:59 Exam: General: Patient is alert, oriented, mild distress shortness of breath Head: atraumatic, normocephalic, Eye: normal appearance, PERRL, no scleral icterus, no conjunctival injection ENT: mucous membranes moist, normal external ear exam Respiratory: Good respiratory effort. Bilateral breath sounds coarse with expiratory wheezing in the posterior lung castellanos, crackles at the bases,more significant in the left lower lobe Cardiovascular: tachycardic, irregular, s1 s2, no S3 No clicks, rubs, gallops, or murmors. Abdomen: Bowel sounds present normoactive x-4 quadrants. Abdomen is soft, nondistended. No guarding or rebound. No organomegaly noted, obese musculoskeletal: Spontaneously moving all extremities. 2+ edema in the lower extremities b/l, no calf tenderness Skin: warm, dry, intact. Neuro: Alert and oriented x4. Cranial nerves 2-12 is intact. Psych: Patient's affect is normal Internal Med - H&P Results - Labs CBC & Chem 7: 05/15/18 14:53 05/15/18 14:53 - Assessment and plan (1) COPD exacerbation Current Visit: No Status: Acute Assessment and plan: Bilateral expiratory wheezing. Plan: - Duo-Nebs Q3RT - Methylprednisolone 40mg/IV Q8HR (2) CHF (congestive heart failure) Current Visit: Yes Status: Acute Assessment and plan: Bilateral crackles, 2+ edema in the lower extremities. Moderate mitral valve regurgitation. 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 - Serial troponins - Nitroglycerin 0.4mg Sublingual X5min x3 for chest pain - Will hold metoprolol for now Qualifiers: Heart failure type: diastolic Heart failure chronicity: acute on chronic Qualified Code(s): I50.33 - Acute on chronic diastolic (congestive) heart failure (3) Chronic respiratory failure Current Visit: Yes Status: Acute Assessment and plan: 2 L home oxygen Plan: - treatment as per #1 Qualifiers: Respiratory failure complication: hypoxia Qualified Code(s): J96.11 - Chronic respiratory failure with hypoxia (4) Depressive disorder Current Visit: No Status: Acute Assessment and plan: Patient multiple mood stabilizing medications Plan: - Continue home medications - escitalopram and mirtazapine (5) DVT prophylaxis Current Visit: Yes Status: Acute Assessment and plan: High risk for DVT Plan: - Heparin 5000 units SubQ Q12HRs - Time Spent With Patient Total time spent is greater than 50% in coordination of care (as documented) at patient's floor/unit and/or counseling patient: Greater than 35 minutes
[2018-05-15] MEDS: *HR* Heparin 5,000 UNIT/ML VIAL SQ SCH (17:52)
[2018-05-15] MEDS: Ipratropium/Albuterol Neb 3 ML IH SCH (20:26)
[2018-05-15] MEDS ORDERED: Mirtazapine 15 MG TABLET PO SCH (21:00)
[2018-05-15] MEDS: Furosemide 40 MG/4 ML VIAL IVP SCH (21:08)
[2018-05-16] MEDS: MethylPREDNISolone 40 MG/ML VIAL IVP SCH ×2 (00:15→07:59)
[2018-05-16] MEDS: Ipratropium/Albuterol Neb 3 ML IH SCH ×5 (00:25→11:33)
[2018-05-16] MEDS: *HR* Heparin 5,000 UNIT/ML VIAL SQ SCH (05:45)
[2018-05-16 06:22] LABS: BUN/Creatinine Ratio 18 (6-26); Blood Urea Nitrogen 15 mg/dL (8-23); Calcium 9.6 mg/dL (8.6-10.3); Carbon Dioxide 28 mEq/L (23-29); Chloride 92 mEq/L (98-107); Glucose 190 mg/dL (70-105); Osmolality,Calculated 280 (280-300); Potassium 4.2 mEq/L (3.5-5.1); Sodium 132 mEq/L (136-145); eGFR For Non-African Americans > 60 (> 60)
[2018-05-16 07:50] LABS: Estimated Average Glucose 148 mg/dl; Hemoglobin A1C 6.8 %
[2018-05-16] MEDS: Furosemide 40 MG/4 ML VIAL IVP SCH (07:59)
[2018-05-16] MEDS ORDERED: Aspirin 81 MG TAB.CHEW PO SCH (09:00)
[2018-05-16] MEDS ORDERED: *HR* Dextrose 50 % in Water (Syg) 50 ML SYRINGE IVP PRN (12:11)
[2018-05-16] MEDS ORDERED: D5% in Water 1,000 ML IVC PRN (12:11)
[2018-05-16] MEDS ORDERED: Dextrose Gel 15 GM/37.5 ML TUBE PO PRN ×2 (12:11)
--- NOTE | 2018-05-16 12:29 | Discharge Summary ---
Date of Encounter: 05/16/18 Time of Encounter: 12:27 - Discharge Diagnosis (1) COPD exacerbation Priority: Primary Status: Acute (2) Chronic respiratory failure Priority: Secondary Status: Acute Qualifiers: Respiratory failure complication: hypoxia Qualified Code(s): J96.11 - Chronic respiratory failure with hypoxia (3) Depressive disorder Priority: Secondary Status: Acute (4) Arrhythmia Priority: Secondary Status: Acute Assessment and Plan: PACs Qualifiers: Arrhythmia type: atrial flutter Atrial flutter type: unspecified Qualified Code(s): I48.92 - Unspecified atrial flutter (5) DVT prophylaxis Priority: Secondary Status: Acute Hospital course: Ms. Tan is a 88 year old female past medical history significant for COPD on 2 L of home oxygen, Non-Hodgkin lymphoma, hypertension, cardiac arrhythmia ( PACs). Patient was brought to the hospital due to sudden onset shortness of breath when she was seen in the porch in her house. As per the patient's son the patient is on home O2, but when he got to the house he oxygen machine was off, and he does not know for how long it was off. Patient found to be in acute respiratory distress, with bilateral expiratory wheezing, and Crackles at the bases. Patient treated for COPD exacerbation with IV steroids, Lasix, and Nebs. Her symptoms have resolved, no respiratory distress, no expiratory wheezing, no crackles on auscultation. As per patient she is back to her normal respiratory status. Patient is clinically stable to be discharged home. Discharge discussed with: patient, nurse - Time Spent with Patient Total time spent providing and/or coordinating discharge services: Greater than 30 minutes - Discharge Medications Prescriptions: Furosemide [Lasix] 20 mg PO DAILY 30 Days #30 tablet Home Medications: Aspirin 81 mg PO DAILY 07/10/15 [History] amLODIPine [Norvasc] 10 mg PO DAILY 12/19/15 [History] Albuterol Sulfate [Albuterol Inhaler] 2 puff IH Q4H PRN 02/12/17 [History] Budesonide/Formoterol 160/4.5 [Symbicort 160/4.5] 2 puff IH BIDR 02/12/17 [ History] Mirtazapine [Remeron] 30 mg PO HS 02/12/17 [History] Ferrous Sulfate [Iron] 325 mg PO DAILY 03/29/18 [History] Lactobacillus Acidophilus [Acidophilus] 1 cap PO DAILY 03/29/18 [History] Multivitamin [One Daily Essential] 1 tab PO DAILY 03/29/18 [History] [place]-3/Dha/Epa/Fish Oil [Fish Oil 1,000 mg Softgel] 1 cap PO DAILY 03/29/18 [ History] Metoprolol XL (24 HR) Succ [Toprol Xl] 25 mg PO DAILY #30 tab.er.24h 03/31/18 [ Rx] hydrALAZINE [HydrALAZINE] 25 mg PO TID #90 tablet 03/31/18 [Rx] Escitalopram [Lexapro] 10 mg PO DAILY 04/17/18 [History] Ipratropium/Albuterol Neb [Duoneb] 3 ml IH Q6HR PRN 04/17/18 [History] Acetaminophen [Tylenol] 650 mg PO Q6HR PRN tablet 04/21/18 [Rx] Tiotropium [place] [Spiriva Respimat] 2 puff IH DAILY 05/15/18 [History] Furosemide [Lasix] 20 mg PO DAILY 30 Days #30 tablet 05/16/18 [Rx] Metoprolol XL (24 HR) Succ [Toprol Xl] 25 mg PO DAILY tab.er.24h 05/16/18 [Rx] Allergies/Adverse Reactions: 3 Allergy/AdvReac Type Severity Reaction Status Date / Time No Known Allergies Allergy Verified 12/19/15 15:54 Date of admission: 05/15/18 16:09 Primary care physician: PCP NONE Consults: 05/16/18 08:42 Consult to Nurse Navigator [CONS] Routine Comment: COPD,CHF - Constitutional Vitals: Temp Pulse Resp BP Pulse Ox 98.0 F 113 18 117/71 93 05/16/18 11:11 05/16/18 11:11 05/16/18 11:34 05/16/18 11:11 05/16/18 11:34 Exam: General: Patient is alert, oriented, no acute distress, speaks in full sentences Head: atraumatic, normocephalic, Respiratory: Good respiratory effort. Clear to auscultation Bilateral, no wheezing, crackles, rales. Cardiovascular: tachycardic, regular , s1 and s2 No clicks, rubs, gallops, or murmors. Abdomen: Bowel sounds present normoactive x-4 quadrants. Abdomen is soft, nondistended. No guarding or rebound. Musculoskeletal:Trace pitting edema in the lower extre, no calf tenderness Skin: warm, dry, intact. Neuro: Alert and oriented x4. Cranial nerves 2-12 is intact. Psych: Patient's affect is normal - Patient Status Disposition: Home, Self-Care Condition: Good Functional capacity at discharge: independent ambulation Overall status at discharge: patient is progressing back to baseline - Discharge Instructions Instructions: Heart Failure (DC), Pleural Effusion (DC) Forms: ED Satisfaction Letter Additional Instructions: Follow-up appointments: If there is not an appointment listed below, please call your physician and schedule a follow-up appointment. If you have congestive heart failure and your symptoms return, make an appointment with your physician. Medication List: Carry an up to date list of medications you are taking at all time. We have given you an updated medication list including any new medications that you have been prescribed. Please provide that list to your primary provider Symptoms: If your condition changes or you experience any of the following symptoms, notify your physician immediately: Unusual or worsening pain, fever, persistent nausea and vomiting, bleeding, increase in swelling (especially in your legs), sudden weight gain, extreme dizziness, chest pain, increased drainage or redness from a wound or incision. Go to the emergency department if you experience a problem with breathing. Weights: If you have a history of swelling or shortness of breath, weigh yourself daily and notify your physician if you have a weight gain of two or more pounds in one day or 5 or more pounds in a week. If you experience any of the warning signs for stroke: Sudden numbness or weakness of the face, arm or leg; especially on one side of the body, sudden confusion, trouble speaking or understanding, sudden trouble seeing in one or both eyes, sudden trouble walking, dizziness, loss of balance or coordination, sudden sever headache with no cause; Call 911 or go to the emergency room. Stroke is a medical emergency. Some risk factors for stroke: Age, cigarette smoking, diabetes, excessive alcohol consumption, family history , high blood pressure, overweight, physical inactivity, prior stroke, heart attack, diagnosis of carotid artery stenosis or other artery disease. If you smoke, STOP: Smoking or tobacco use significantly increases your risk of heart and lung disease. Your chance of disease greatly increases if you continue to smoke. For more information, call the [place] tobacco quit line for smoking cessation 9- QUIT-NOW ( ) - Diet and Activity Activity: increase activity as tolerated Diet: advance to your usual diet
[2018-05-16] MEDS ORDERED: Metoprolol XL (24 HR) Succ 25 MG TAB.ER.24H PO SCH (12:30)
[2018-05-16 14:21] VITALS: BP 103/61
[2018-05-16] MEDS ORDERED: Insulin LISPRO 300 UNITS/3 ML VIAL SQ SCH (16:30)
[2018-05-16] MEDS ORDERED: Insulin DETEMIR 100 UNIT/ML X5UNITS SQ SCH (21:00)
--- NOTE | 2018-05-18 07:45 | Electrocardiograph Report ---
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
== END 2018-05-16 14:53 | disposition home or self-care (01) ==
LOC: 3BNU 14:40 → EMEROOARM 14:40 → SUATTDRO 16:09 → 3BNU 16:36
PROVIDERS: ADMIT Internal Medicine; ATTEND Internal Medicine

== ENCOUNTER 2018-06-01 21:37 | Observation (INO) ==
--- NOTE | 2018-06-01 22:22 | Emergency Department Note ---
Disposition Clinical Impression: Acute exacerbation of CHF (congestive heart failure) Qualifiers: Heart failure type: unspecified Qualified Code(s): I50.9 - Heart failure, unspecified Disposition: Admitted As Inpatient Condition: Fair Referrals: NONE,PCP [Primary Care Provider] - Forms: ED Satisfaction Letter Time of Disposition: 00:05 General Adult HPI - General Chief complaint: ED Shortness of Breath/Dyspnea Stated complaint: ERIC Time Seen by Provider: 06/01/18 21:53 Source: EMS Mode of arrival: EMS Limitations: no limitations Nursing Notes Reviewed: Yes Vital Signs Reviewed: Yes - History of Present Illness HPI Narrative: Female with a history of COPD and 2 liters of oxygen at home presents with "anxiety" for the last 2 hours. She lives at home alone and states that she had been with her son for the afternoon and when he left she started to get anxious and called EMS. She denies fevers, cough, SOB, CP, palpitations, lightheadedness , dizziness, abd pain, nausea, vomiting, changes to her bladder and bowel. I have re-performed and reviewed the history documented by the medical student, and I confirm its accuracy except as noted below 88-year-old female history of COPD on to liter home oxygen supplementation and recent diagnosis of congestive heart failure presents emergency department for difficulty in breathing. The patient is here in the presence of for son who assist with the history. She reports over the past several weeks she has been sure breath. On the past few days she has been worse including some swelling in her legs. Approximately 2 hours ago patient had sudden difficulty in breathing. States she was unable to catch her breath. She denies any chest pain. Denies any fever cough. The son states she was very worked up banging her hand on the table. She has been taken her diuretic as prescribed. Pain Scale: 6 - Related Data Home Medications Medication Instructions Recorded Confirmed Aspirin 81 mg PO DAILY 07/10/15 05/15/18 amLODIPine [Norvasc] 10 mg PO DAILY 12/19/15 05/15/18 Albuterol Sulfate [Albuterol 2 puff IH Q4H PRN 02/12/17 05/15/18 Inhaler] Budesonide/Formoterol 160/4.5 2 puff IH BIDR 02/12/17 05/15/18 [Symbicort 160/4.5] Mirtazapine [Remeron] 30 mg PO HS 02/12/17 05/15/18 Ferrous Sulfate [Iron] 325 mg PO DAILY 03/29/18 05/15/18 Lactobacillus Acidophilus 1 cap PO DAILY 03/29/18 05/15/18 [Acidophilus] Multivitamin [One Daily Essential] 1 tab PO DAILY 03/29/18 05/15/18 [place]-3/Dha/Epa/Fish Oil [Fish Oil 1 cap PO DAILY 03/29/18 05/15/18 1,000 mg Softgel] Escitalopram [Lexapro] 10 mg PO DAILY 04/17/18 05/15/18 Ipratropium/Albuterol Neb [Duoneb] 3 ml IH Q6HR PRN 04/17/18 05/15/18 Tiotropium [place] [Spiriva 2 puff IH DAILY 05/15/18 05/15/18 Respimat] Previous Rx's Medication Instructions Recorded Metoprolol XL (24 HR) Succ [Toprol 25 mg PO DAILY #30 tab.er.24h 03/31/18 Xl] hydrALAZINE [HydrALAZINE] 25 mg PO TID #90 tablet 03/31/18 Acetaminophen [Tylenol] 650 mg PO Q6HR PRN tablet 04/21/18 Furosemide [Lasix] 20 mg PO DAILY 30 Days #30 tablet 05/16/18 Metoprolol XL (24 HR) Succ [Toprol 25 mg PO DAILY tab.er.24h 05/16/18 Xl] Allergies Allergy/AdvReac Type Severity Reaction Status Date / Time No Known Allergies Allergy Verified 06/01/18 21:50 All systems ED: reviewed and negative except as stated. Review of Systems: As Per HPI Constitutional: Denies: fever, chills ENT ED: Denies: congestion Cardiovascular: Denies: chest pain Respiratory: Reports: dyspnea Gastrointestinal: Denies: abdominal pain, nausea, vomiting Musculoskeletal: Denies: back pain Neurological: Denies: headache, weakness Psychiatric: Reports: anxiety Past Medical History - Past Medical History Attestation: Yes The following information was validated with the patient. 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 - Social History Smoking Status: Former smoker Smokeless Tobacco Status: No Alcohol use: Reports: none Drug use: Reports: none Physical Exam - General Limitations: no limitations General appearance: alert, in no apparent distress, anxious - Head Head exam: atraumatic, normocephalic, normal inspection - Eye Eye exam: Present: normal appearance, PERRL, EOMI - ENT ENT exam: normal exam, normal oropharynx, mucous membranes moist - Neck Neck exam: Present: normal inspection, full ROM, trachea midline - Chest Chest inspection: Present: normal inspection, symmetric chest wall rise - Respiratory Respiratory exam: Present: normal lung sounds bilaterally. Absent: respiratory distress, wheezes - Expanded Respiratory Exam Location: rales: Lower - Cardiovascular Cardiovascular exam: Present: regular rate, irregular rhythm, normal heart sounds - Abdominal Exam Abdominal exam: Present: soft, Non-Tender, normal bowel sounds. Absent: tenderness, distention, guarding, rebound, rigidity - Extremities Exam Extremities exam: Present: normal inspection, full ROM, normal capillary refill , pedal edema (+1 bilateral). Absent: tenderness, calf tenderness - Back Exam Back exam: Present: normal inspection, full ROM. Absent: tenderness - Neurological Exam Neurological exam: Present: alert, oriented X3 - Psychiatric Psychiatric exam: Present: normal affect, anxious - Skin Skin exam: Present: warm, dry, intact, normal color Course Course Narrative: Patient presents with difficulty in breathing. Patient is anxious on examination. Son reports she was very worked up about was complaining of difficulty breathing. Her oxygen saturation remains high in the upper 90s. Recent diagnosis of congestive heart failure. She recently saw her primary care physician and was also prescribed a benzodiazepine believing this was more anxiety. On examination patient does appears slightly anxious with some mild respiratory distress. No wheezing on examination. She does have some crackles in the lower basis. Chest x-ray basic labs including EKG performed. - Reevaluation(s) Reevaluation #1: Her BNP is elevated slightly above her baseline. She admits to some swelling in her lower extremities. Her chest x-ray shows a hazy in the left lower lobe for possible atelectasis or pleural effusion. Patient denies any fevers. She has mild leukocytosis. Consideration for possible pneumonia however less likely. Given patient symptoms suggest likely a acute exacerbation of her CHF. Will give her dose of her diuretic here and likely admit her. Patient and family are in agreement with this plan. - Consultations Consultation #1: Spoke with on-call hospitalist misael Solis to admit for CHF exacerbation, dyspnea. No further orders at this time. Discuss the possibility of initiating antibiotic but will reevaluated the patient on the admission floor. Suspect this is likely more CHF exacerbation. Time: 00:05 Vital Signs Temperature 98.1 F 06/01/18 21:41 Pulse Rate 93 06/01/18 21:41 Respiratory Rate 18 06/01/18 21:41 Blood Pressure 116/78 06/01/18 21:41 O2 Sat by Pulse Oximetry 100 06/01/18 21:41 Temperature 98.1 F 06/01/18 21:41 Pulse Rate 93 06/01/18 21:41 Respiratory Rate 18 06/01/18 21:41 Blood Pressure 116/78 06/01/18 21:41 O2 Sat by Pulse Oximetry 93 06/01/18 21:58 Oxygen Delivery Oxygen Delivery Room Air Medical Decision Making - MDM Narrative Medical decision making narrative: Patient was discussed with my attending physician who agrees with ED management and final disposition. They independently evaluated the patient. Please refer to their attestation to this encounter for additional information. This note was generated by [employer] voice recognition software and as a result grammatical or spelling errors may occur using this program. - Medical Records Medical records reviewed: Yes I reviewed the patient's medical records. - Lab Data Lab results reviewed: Yes I reviewed the patient's lab results. Result diagrams: 06/01/18 22:11 06/01/18 22:11 Lab Results 06/01/18 06/01/18 06/01/18 Range/Units 22:11 22:11 22:11 WBC 13.8 H (4.3-11.1) K/mcL RBC 4.20 (3.82-4.97) M/mcL Hgb 12.0 (11.5-15.4) g/dL Hct 37.9 (35.3-44.9) % MCV 90.2 (83.0-100.0) fL MCH 28.6 (28.0-33.3) pg MCHC 31.7 (31.6-35.5) g/dL RDW 15.7 H (11.5-14.5) % Plt Count 517 H (140-400) K/mcL MPV 9.8 (9.4-12.4) fL Immature Gran % 0.9 (0-4) % Seg Neutrophils % 74.9 % Lymphocytes % 10.0 % Monocytes % 13.1 % Eosinophils % 0.9 % Basophils % 0.2 % Neutrophils # 10.3 H (1.6-8.9) K/mcL Lymphocytes # 1.4 (0.6-4.6) K/mcL Monocytes # 1.8 H (0.0-1.3) K/mcL Eosinophils # 0.1 (0.0-0.6) K/mcL Basophils # 0.0 (0.0-0.2) K/mcL Sodium 132 L (136-145) mEq/L Potassium 3.9 (3.5-5.1) mEq/L Chloride 95 L (98-107) mEq/L Carbon Dioxide 30 H (23-29) mEq/L BUN 22 (8-23) mg/dL Creatinine 1.13 (0.60-1.20) mg/dL Est GFR ( Amer) 55 L (> 60) Est GFR (Non-Af Amer) 46 L (> 60) BUN/Creatinine Ratio 19 (6-26) Glucose 152 H (70-105) mg/dL Calculated Osmolality 280 (280-300) Calcium 9.5 (8.6-10.3) mg/dL Troponin I < 0.03 (< 0.04) ng/mL B-Natriuretic Peptide 285 H (Less than 100) pg/mL - Radiology Data Radiology results reviewed: Yes I reviewed the patient's radiology results. Chest X-Ray 06/01/18 22:02 IMPRESSION: Hazy density lateral left lower lung. This is suggestive of pleural effusion and partial atelectasis. Underlying pneumonia may be considered in the proper clinical setting. D/ / Chapin Villavicencio MD / Chapin Villavicencio MD Interpreting Provider: Chapin Villavicencio MD - EKG Data EKG #1 EKG attestation: Yes I reviewed and interpreted this EKG. EKG results narrative: EKG performed 2207 Atrial fibrillation 114 beats per minute, PVC, normal axis, no ST elevation or depression. Compared to prior EKG performed 05/15/2018 shows similar consistent findings of atrial fibrillation 107 beats per minute. No acute ischemic changes.
[2018-06-01 22:27] LABS: Basophils % 0.2 %; Eosinophils # 0.1 K/mcL (0.0-0.6); Eosinophils % 0.9 %; Hematocrit 37.9 % (35.3-44.9); Immature Granulocytes % 0.9 % (0-4); Lymphocytes # 1.4 K/mcL (0.6-4.6); Mean Corpuscular HGB Conc 31.7 g/dL (31.6-35.5); Mean Corpuscular Hemoglobin 28.6 pg (28.0-33.3); Mean Corpuscular Volume 90.2 fL (83.0-100.0); Mean Platelet Volume 9.8 fL (9.4-12.4); Monocytes # 1.8 K/mcL (0.0-1.3); Monocytes % 13.1 %; Neutrophils # 10.3 K/mcL (1.6-8.9); Platelet Count 517 K/mcL (140-400); Red Cell Distribution Width 15.7 % (11.5-14.5); Segmented Neutrophils % 74.9 %
[2018-06-01 22:48] LABS: BUN/Creatinine Ratio 19 (6-26); Blood Urea Nitrogen 22 mg/dL (8-23); Calcium 9.5 mg/dL (8.6-10.3); Carbon Dioxide 30 mEq/L (23-29); Chloride 95 mEq/L (98-107); Glucose 152 mg/dL (70-105); Osmolality,Calculated 280 (280-300); Potassium 3.9 mEq/L (3.5-5.1); Sodium 132 mEq/L (136-145); eGFR For Non-African Americans 46 (> 60)
[2018-06-01 22:50] LABS: Troponin I < 0.03 ng/mL (< 0.04)
[2018-06-02] MEDS ORDERED: Furosemide 40 MG/4 ML VIAL IVP ONE (00:04)
[2018-06-02] MEDS ORDERED: Acetaminophen 325 MG TABLET PO PRN (01:10)
--- NOTE | 2018-06-02 01:23 | Emergency Department Note ---
Disposition Clinical Impression: Acute exacerbation of CHF (congestive heart failure) Qualifiers: Heart failure type: unspecified Qualified Code(s): I50.9 - Heart failure, unspecified Disposition: Admitted As Inpatient Condition: Fair General Adult HPI - General Chief complaint: ED Shortness of Breath/Dyspnea Stated complaint: ERIC Time Seen by Provider: 06/01/18 21:53 Source: EMS Mode of arrival: EMS Limitations: no limitations Nursing Notes Reviewed: Yes Vital Signs Reviewed: Yes - History of Present Illness Pain Scale: 0 - Related Data Home Medications Medication Instructions Recorded Confirmed Aspirin 81 mg PO DAILY 07/10/15 05/15/18 amLODIPine [Norvasc] 10 mg PO DAILY 12/19/15 05/15/18 Albuterol Sulfate [Albuterol 2 puff IH Q4H PRN 02/12/17 05/15/18 Inhaler] Budesonide/Formoterol 160/4.5 2 puff IH BIDR 02/12/17 05/15/18 [Symbicort 160/4.5] Mirtazapine [Remeron] 30 mg PO HS 02/12/17 05/15/18 Ferrous Sulfate [Iron] 325 mg PO DAILY 03/29/18 05/15/18 Lactobacillus Acidophilus 1 cap PO DAILY 03/29/18 05/15/18 [Acidophilus] Multivitamin [One Daily Essential] 1 tab PO DAILY 03/29/18 05/15/18 [place]-3/Dha/Epa/Fish Oil [Fish Oil 1 cap PO DAILY 03/29/18 05/15/18 1,000 mg Softgel] Escitalopram [Lexapro] 10 mg PO DAILY 04/17/18 05/15/18 Ipratropium/Albuterol Neb [Duoneb] 3 ml IH Q6HR PRN 04/17/18 05/15/18 Tiotropium [place] [Spiriva 2 puff IH DAILY 05/15/18 05/15/18 Respimat] Previous Rx's Medication Instructions Recorded Metoprolol XL (24 HR) Succ [Toprol 25 mg PO DAILY #30 tab.er.24h 03/31/18 Xl] hydrALAZINE [HydrALAZINE] 25 mg PO TID #90 tablet 03/31/18 Acetaminophen [Tylenol] 650 mg PO Q6HR PRN tablet 04/21/18 Furosemide [Lasix] 20 mg PO DAILY 30 Days #30 tablet 05/16/18 Metoprolol XL (24 HR) Succ [Toprol 25 mg PO DAILY tab.er.24h 05/16/18 Xl] Allergies Allergy/AdvReac Type Severity Reaction Status Date / Time No Known Allergies Allergy Verified 06/01/18 21:50 Constitutional: Denies: fever, chills ENT ED: Denies: congestion Cardiovascular: Denies: chest pain Respiratory: Reports: dyspnea Gastrointestinal: Denies: abdominal pain, nausea, vomiting Musculoskeletal: Denies: back pain Neurological: Denies: headache, weakness Psychiatric: Reports: anxiety Past Medical History - Past Medical History Medical history: Reports: COPD, DVT, hyperlipidemia, hypertension, malignancy, other Surgical history: Reports: appendectomy, cataract, cholecystectomy, hysterectomy Psychiatric history: Reports: other 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 - Social History Smoking Status: Former smoker Smokeless Tobacco Status: No Alcohol use: Reports: none Drug use: Reports: none Physical Exam - General Limitations: no limitations General appearance: alert, in no apparent distress, anxious Course Vital Signs Temperature 98.1 F 06/01/18 21:41 Pulse Rate 93 06/01/18 21:41 Respiratory Rate 18 06/01/18 21:41 Blood Pressure 116/78 06/01/18 21:41 O2 Sat by Pulse Oximetry 100 06/01/18 21:41 Temperature 98.1 F 06/01/18 21:41 Pulse Rate 93 06/01/18 21:41 Respiratory Rate 16 06/02/18 01:09 Blood Pressure 114/70 06/02/18 01:09 O2 Sat by Pulse Oximetry 93 06/01/18 21:58 Oxygen Delivery Oxygen Delivery Nasal Cannula Medical Decision Making - Medical Records Medical records reviewed: Yes I reviewed the patient's medical records. - Lab Data Lab results reviewed: Yes I reviewed the patient's lab results. Result diagrams: 06/01/18 22:11 06/01/18 22:11 Lab Results 06/01/18 06/01/18 06/01/18 Range/Units 22:11 22:11 22:11 WBC 13.8 H (4.3-11.1) K/mcL RBC 4.20 (3.82-4.97) M/mcL Hgb 12.0 (11.5-15.4) g/dL Hct 37.9 (35.3-44.9) % MCV 90.2 (83.0-100.0) fL MCH 28.6 (28.0-33.3) pg MCHC 31.7 (31.6-35.5) g/dL RDW 15.7 H (11.5-14.5) % Plt Count 517 H (140-400) K/mcL MPV 9.8 (9.4-12.4) fL Immature Gran % 0.9 (0-4) % Seg Neutrophils % 74.9 % Lymphocytes % 10.0 % Monocytes % 13.1 % Eosinophils % 0.9 % Basophils % 0.2 % Neutrophils # 10.3 H (1.6-8.9) K/mcL Lymphocytes # 1.4 (0.6-4.6) K/mcL Monocytes # 1.8 H (0.0-1.3) K/mcL Eosinophils # 0.1 (0.0-0.6) K/mcL Basophils # 0.0 (0.0-0.2) K/mcL Sodium 132 L (136-145) mEq/L Potassium 3.9 (3.5-5.1) mEq/L Chloride 95 L (98-107) mEq/L Carbon Dioxide 30 H (23-29) mEq/L BUN 22 (8-23) mg/dL Creatinine 1.13 (0.60-1.20) mg/dL Est GFR ( Amer) 55 L (> 60) Est GFR (Non-Af Amer) 46 L (> 60) BUN/Creatinine Ratio 19 (6-26) Glucose 152 H (70-105) mg/dL Calculated Osmolality 280 (280-300) Calcium 9.5 (8.6-10.3) mg/dL Troponin I < 0.03 (< 0.04) ng/mL B-Natriuretic Peptide 285 H (Less than 100) pg/mL - Radiology Data Radiology results reviewed: Yes I reviewed the patient's radiology results. Chest X-Ray 06/01/18 22:02 IMPRESSION: Hazy density lateral left lower lung. This is suggestive of pleural effusion and partial atelectasis. Underlying pneumonia may be considered in the proper clinical setting. D/ / Chapin Villavicencio MD / Chapin Villavicencio MD Interpreting Provider: Chapin Villavicencio MD Critical Care Time Critical Care Time: No Attestation Statement - Attestation Attestation: I, Tino Landry MD, personally evaluated this patient and discussed their management with the resident physician. I reviewed the resident's note and agree with the documented findings, medical decision making, and plan of care. 88-year-old female with history of CHF and also some COPD presents to the emergency department with a complaint of increased shortness of breath this evening. No increased cough or fever. No chest pain. Some increased swelling of her feet and ankles. On examination patient is a well-developed well-nourished elderly female in no acute distress. She is alert and oriented 3. There is no cyanosis or diaphoresis. Breath sounds are decreased bilaterally with some scattered dry bibasilar rales. No wheezes noted. Heart regular rate and rhythm. Abdomen is soft and nontender with normal bowel sounds. Labs and x-ray reviewed. The hospitalist, Dr. Jalloh, was consulted and accepted admission of the patient.
--- NOTE | 2018-06-02 03:00 | Internal Med History&Physical ---
<Isaiah Andino - Last Filed: 06/02/18 02:51> Date of Encounter: 06/02/18 Time of Encounter: 02:51 Internal Medicine - H&P: HPI Chief complaint: sob Admitted From: Home Plans for Post Hospital Care: Home History of present illness: Ms. Tan is a 88 year old female w/ h of COPD,CHF presents with chief complaint of shortness of breath that started yesterday morning and progressively worsened. Patient denied fevers, chills, cough, sputum production , sick contacts. Patient uses 2 L of oxygen at home and had to increase oxygen level. She also tried her home and nebulizer treatment but this did not work. Patient reports she drinks 5 12 glasses of iced tea every day with 3 cups of coffee, milk in addition to water intake. She denies a high salt diet. CXR noted left pleural effusion. She was found to have b/l crackles given IV lasix in ED. She reports her breathing is back to baseline. Past Med Surg Social Fam HX - Past Medical History Medical history: COPD, DVT, hyperlipidemia, hypertension, malignancy, other Additional medical history: melanoma Psychiatric history: other - Past Surgical History Surgical History: appendectomy, cataract, cholecystectomy, hysterectomy - Social History Smoking Status: Former smoker Smokeless Tobacco Status: No Alcohol use: none Drug use: none - Family History Father History Unknown: Yes Mother History Unknown: Yes Daughter Hx Family Cardiac Disorders: Yes ([place]) Hx Family Cancer: Yes (cervical, bladder cancer) Internal Medicine - H&P: Meds Aspirin 81 mg PO DAILY 07/10/15 [History] amLODIPine [Norvasc] 10 mg PO DAILY 12/19/15 [History] Albuterol Sulfate [Albuterol Inhaler] 2 puff IH Q4H PRN 02/12/17 [History] Budesonide/Formoterol 160/4.5 [Symbicort 160/4.5] 2 puff IH BIDR 02/12/17 [ History] Mirtazapine [Remeron] 30 mg PO HS 02/12/17 [History] Ferrous Sulfate [Iron] 325 mg PO DAILY 03/29/18 [History] Lactobacillus Acidophilus [Acidophilus] 1 cap PO DAILY 03/29/18 [History] Multivitamin [One Daily Essential] 1 tab PO DAILY 03/29/18 [History] [place]-3/Dha/Epa/Fish Oil [Fish Oil 1,000 mg Softgel] 1 cap PO DAILY 03/29/18 [ History] Metoprolol XL (24 HR) Succ [Toprol Xl] 25 mg PO DAILY #30 tab.er.24h 03/31/18 [ Rx] hydrALAZINE [HydrALAZINE] 25 mg PO TID #90 tablet 03/31/18 [Rx] Escitalopram [Lexapro] 10 mg PO DAILY 04/17/18 [History] Ipratropium/Albuterol Neb [Duoneb] 3 ml IH Q6HR PRN 04/17/18 [History] Acetaminophen [Tylenol] 650 mg PO Q6HR PRN tablet 04/21/18 [Rx] Tiotropium [place] [Spiriva Respimat] 2 puff IH DAILY 05/15/18 [History] Furosemide [Lasix] 20 mg PO DAILY 30 Days #30 tablet 05/16/18 [Rx] Metoprolol XL (24 HR) Succ [Toprol Xl] 25 mg PO DAILY tab.er.24h 05/16/18 [Rx] 3 Allergy/AdvReac Type Severity Reaction Status Date / Time No Known Allergies Allergy Verified 06/01/18 21:50 All Systems PM: A 10-system review of systems was performed and is negative for pertinent findings except as documented above in the HPI. Review of systems: Constitutional: Denies fever, chills HEENT: Denies headache, trauma, blurry vision, eye discharge, ear pain, ear discharge neck pain, sore throat, rhinorrhea Heart: Denies chest pain palpitations, LE edema Lungs: Poor shortness of breath. Denies cough, sputum production Abdomen: Denies abdominal pain nausea vomiting diarrhea MSK: Denies back pain, falls, joint pain Kidney: Denies dysuria, hematuria Skin: Denies rash, ulcers Neuro: Denies numbness and tingling Psych: denies axniety, depression - Constitutional Vitals: Temp Pulse Resp BP Pulse Ox 97.8 F 111 18 129/82 96 06/02/18 01:33 06/02/18 01:33 06/02/18 01:33 06/02/18 01:33 06/02/18 01:33 Exam: General: pleasant, without distress HEENT: Head atraumatic, normocephalic, EOMI, PERRL, absent ear discharge or trauma, Moist Mucous Membranes, uvula midline Neck: nontender to palpation, absent lymphadenopathy, Cardiovascualr: Regular rate and rhythm with no murmur, absent gallops or rubs, absent pedal edema, radial pulses 2 out of 4 Lungs: Patient has crackles diffusely in bilateral lower lobe and mid lobes., not in respiratory distress Abdomen: Soft nontender, nondistended positive bowel sounds, absent hepatomegaly Skin: warm and dry, absent rash, absent open wounds and nodules MSK: absent clubbing, cyanosis, joints without swelling Neuro: Cranial nerves II through XII intact, UE and LE sensation equal bilaterally, UE and LEstrength 5/5, alert oriented 3, Psych: good insight and judgment, anxious, depressed Internal Med - H&P Results - Labs CBC & Chem 7: 06/01/18 22:11 06/01/18 22:11 - Assessment and plan (1) Acute exacerbation of CHF (congestive heart failure) Current Visit: Yes Status: Acute Assessment and plan: 88 y/o female presents with shortness of breath Chest x-ray shows left pleural effusion explained lung exam patient has crackles bilaterally She does not have lower extremity edema Patient drinks 5 total cholesterol T, 3 cups of coffee, milk, water retain She denies high salt diet Patient was given IV Lasix in the ED and reported her shortness of breath is at baseline. Echocardiogram on 04/2018 showing EF of 60% with indeterminant diastolic dysfunction, basal septal hypertrophy, mild to moderate thickened and calcified aortic valve leaflets. Plan: She is restarted on her home dose of Lasix, strict I's and O's,cardiac, fluid restricted diet. Qualifiers: Heart failure type: diastolic Qualified Code(s): I50.33 - Acute on chronic diastolic (congestive) heart failure (2) History of COPD Current Visit: Yes Status: Acute Assessment and plan: not in exacerbation nebulizer prn (3) Depressive disorder Current Visit: Yes Status: Acute Assessment and plan: hx of Major depressive disorder currently denies depressed mood continue mirtazapine and lexapro. (4) History of hypertension Current Visit: Yes Status: Acute Assessment and plan: controlled continue home medication: amlodipine, lasix, metoprolol, hydralazine. - Time Spent With Patient Total time spent is greater than 50% in coordination of care (as documented) at patient's floor/unit and/or counseling patient: <Viola Jalloh - Last Filed: 06/02/18 03:30> Date of Encounter: 06/02/18 Internal Medicine - H&P: HPI History of present illness: Ms. Tan is a 88 year old female All Systems PM: A 10-system review of systems was performed and is negative for pertinent findings except as documented above in the HPI. - Constitutional Vitals: Temp Pulse Resp BP Pulse Ox 97.8 F 111 18 129/82 96 06/02/18 01:33 06/02/18 01:33 06/02/18 01:33 06/02/18 01:33 06/02/18 01:33 Internal Med - H&P Results - Labs CBC & Chem 7: 06/01/18 22:11 06/01/18 22:11 - Assessment and plan (1) Depressive disorder Current Visit: Yes Status: Acute (2) Acute exacerbation of CHF (congestive heart failure) Current Visit: Yes Status: Acute Qualifiers: Heart failure type: diastolic Qualified Code(s): I50.33 - Acute on chronic diastolic (congestive) heart failure (3) History of COPD Current Visit: Yes Status: Acute (4) History of hypertension Current Visit: Yes Status: Acute - Time Spent With Patient Total time spent is greater than 50% in coordination of care (as documented) at patient's floor/unit and/or counseling patient: - Attending Attestation Toshia Tan is an 88 year old woman with a history of COPD and heart failure, last admitted less than a month ago who presents with the complaint of longstanding dyspnea on exertion that has now worsened. She has oxygen at home which she hardly used but now requires it. On exam she was found to have some mild crackles and improved with 40mg of furosemide. She also received a breathing treatment. PE for me shows a well- developed woman laying comfortably in bed in NAD, reduced basilar breath sounds and no peripheral edema. Will reduce furosemide to 20mg daily, nebs for a short course, no indication for steroids. No need for new cardiac imaging as was done recently. If remains stable by morning can be discharged to home with OP f/u.
[2018-06-02] MEDS: Ipratropium/Albuterol Neb 3 ML IH SCH ×3 (03:39→11:00)
[2018-06-02] MEDS ORDERED: *HR* Heparin 5,000 UNIT/ML VIAL SQ SCH (06:00)
[2018-06-02] MEDS ORDERED: Multivit/Ca/Min/Fe/FA 1 TAB TABLET PO SCH (09:00)
[2018-06-02] MEDS ORDERED: Aspirin 81 MG TAB.CHEW PO SCH (09:00)
[2018-06-02] MEDS ORDERED: Furosemide 20 MG TABLET PO SCH (09:00)
[2018-06-02] MEDS ORDERED: amLODIPine 5 MG TABLET PO SCH (09:00)
[2018-06-02] MEDS ORDERED: Metoprolol XL (24 HR) Succ 25 MG TAB.ER.24H PO SCH (09:00)
[2018-06-02] MEDS ORDERED: hydrALAZINE 25 MG TABLET PO SCH (09:00)
[2018-06-02 11:04] LABS: Hematocrit 34.5 % (35.3-44.9); Hemoglobin 11.3 g/dL (11.5-15.4); Mean Corpuscular HGB Conc 32.8 g/dL (31.6-35.5); Mean Corpuscular Volume 88.5 fL (83.0-100.0); Platelet Count 486 K/mcL (140-400); Red Cell Distribution Width 15.8 % (11.5-14.5)
[2018-06-02 11:24] VITALS: BP 101/54
[2018-06-02 11:24] LABS: Albumin 3.5 g/dL (3.5-5.7); Albumin/Globulin Ratio 1.2 (1.1-2.2); Bilirubin,Total 0.5 mg/dL (0.3-1.0); Calcium 9.1 mg/dL (8.6-10.3); Potassium 3.8 mEq/L (3.5-5.1); Total Protein 6.5 g/dL (6.4-8.9)
--- NOTE | 2018-06-02 12:08 | Discharge Summary ---
<Richard Espinosa - Last Filed: 06/02/18 13:46> - NOTES TO OUTPATIENT PROVIDER Notes to Outpatient Provider: Starting patient on Eliquis; paroxysmal afib, dilated atria on 04/20/18 echo, [id number] score of 5, hasbled score of 1 Date of Encounter: 06/02/18 Time of Encounter: 09:00 - Discharge Diagnosis (1) Acute exacerbation of CHF (congestive heart failure) Priority: Primary Status: Acute Qualifiers: Heart failure type: diastolic Qualified Code(s): I50.33 - Acute on chronic diastolic (congestive) heart failure (2) Paroxysmal atrial fibrillation Priority: Secondary Status: Acute (3) Depressive disorder Priority: Secondary Status: Acute (4) COPD (chronic obstructive pulmonary disease) Priority: Secondary Status: Acute Qualifiers: COPD type: unspecified COPD Qualified Code(s): J44.9 - Chronic obstructive pulmonary disease, unspecified Hospital course: Ms. Tan is a 88 year old female with past medical history of COPD on 2L at home, CHF who presented to the ED with 1 day of worsening shortness of breath. ED CXR showed possible L pleural effusion, versus atelectasis, negative troponin , ecg showing afib of 114 with normal axis with no ST elevation/depression. She was given Lasix in the ED and admitted for acute exacerbation of CHF. Patient diuresed 700ml and stated her shortness of breath has improved greatly. She has been saturating well on 2L nasal cannula, her baseline. Reviewing her telemetry , 04/20/18 echo showing atrial enlargement, and previous recent ED ekg's she was diagnosed with paroxysmal atrial fibrillation. She was calculated to be a [id number] score of 5 ~7.2% per year stroke/tia/thromboembolism. She was informed of the risks of not being on anticoagulation (she is on rate control currently) and opted to trial Eliquis. [employer] specialty services manager discussed her insurance and monthly premiums which she stated she would be able to pay. Plan is for discharge today in the early afternoon. Discharge discussed with: patient - Time Spent with Patient Total time spent providing and/or coordinating discharge services: Greater than 30 minutes - Discharge Medications Prescriptions: Apixaban [Eliquis] 5 mg PO BID #60 tablet Home Medications: Aspirin 81 mg PO DAILY 07/10/15 [History] amLODIPine [Norvasc] 10 mg PO DAILY 12/19/15 [History] Mirtazapine [Remeron] 30 mg PO HS 02/12/17 [History] Ferrous Sulfate [Iron] 325 mg PO DAILY 03/29/18 [History] Lactobacillus Acidophilus [Acidophilus] 1 cap PO DAILY 03/29/18 [History] Multivitamin [One Daily Essential] 1 tab PO DAILY 03/29/18 [History] [place]-3/Dha/Epa/Fish Oil [Fish Oil 1,000 mg Softgel] 1 cap PO DAILY 03/29/18 [ History] hydrALAZINE [HydrALAZINE] 25 mg PO TID #90 tablet 03/31/18 [Rx] Escitalopram [Lexapro] 10 mg PO DAILY 04/17/18 [History] Ipratropium/Albuterol Neb [Duoneb] 3 ml IH Q6HR PRN 04/17/18 [History] Acetaminophen [Tylenol] 650 mg PO Q6HR PRN tablet 04/21/18 [Rx] Tiotropium Bowen [Spiriva Respimat] 2 puff IH DAILY 05/15/18 [History] Furosemide [Lasix] 20 mg PO DAILY 30 Days #30 tablet 05/16/18 [Rx] Metoprolol XL (24 HR) Succ [Toprol Xl] 25 mg PO DAILY tab.er.24h 05/16/18 [Rx] Apixaban [Eliquis] 5 mg PO BID #60 tablet 06/02/18 [Rx] Allergies/Adverse Reactions: 3 Allergy/AdvReac Type Severity Reaction Status Date / Time No Known Allergies Allergy Verified 06/01/18 21:50 Date of admission: 06/02/18 01:06 Primary care physician: PCP NONE Consults: 06/02/18 09:22 Consult to Nurse Navigator [CONS] Routine Comment: CHF - Constitutional Vitals: Temp Pulse Resp BP Pulse Ox 98.3 F 93 15 101/54 95 06/02/18 11:21 06/02/18 11:21 06/02/18 11:21 06/02/18 11:21 06/02/18 11:21 Exam: General: pleasant, without distress HEENT: Head atraumatic, normocephalic, EOMI, PERRL, absent ear discharge or trauma, Moist Mucous Membranes, uvula midline Neck: nontender to palpation, absent lymphadenopathy, Cardiovascualr: irregularly irregular with no murmur, absent gallops or rubs, absent pedal edema, radial pulses 2 out of 4 Lungs: not in respiratory distress, mild rales improved since admission Abdomen: Soft nontender, nondistended positive bowel sounds, absent hepatomegaly Skin: warm and dry, absent rash, absent open wounds and nodules MSK: absent clubbing, cyanosis, joints without swelling Neuro: no slurring of speech, no facial asymmetry, no focal deficits Psych: anxious, answers questions appropriately - Patient Status Disposition: Home, Self-Care Condition: Fair Functional capacity at discharge: independent ambulation Overall status at discharge: patient is progressing back to baseline - Discharge Instructions Instructions: Heart Failure (DC), Atrial Fibrillation (DC), Chest Pain (DC), Chronic Obstructive Pulmonary Disease (DC), Chronic Dysphagia (DC) Follow Up With: Jason Reyes DO [Partnered Physician] - 06/16/18 3:00 pm - Diet and Activity Activity: increase activity as tolerated Diet: low salt diet (advised to continue to hydrate but limit to 6 cups of fluid /~1.5L per day) <Geoffrey Walker - Last Filed: 06/02/18 16:31> Date of Encounter: 06/02/18 - Discharge Diagnosis (1) Depressive disorder Status: Acute (2) Acute exacerbation of CHF (congestive heart failure) Status: Acute Qualifiers: Heart failure type: diastolic Qualified Code(s): I50.33 - Acute on chronic diastolic (congestive) heart failure (3) Atrial fibrillation Priority: Secondary Status: Chronic Qualifiers: Atrial fibrillation type: chronic Qualified Code(s): I48.2 - Chronic atrial fibrillation (4) Chronic respiratory failure Priority: Secondary Status: Chronic Qualifiers: Respiratory failure complication: hypoxia Qualified Code(s): J96.11 - Chronic respiratory failure with hypoxia (5) COPD (chronic obstructive pulmonary disease) Status: Chronic Qualifiers: COPD type: unspecified COPD Qualified Code(s): J44.9 - Chronic obstructive pulmonary disease, unspecified (6) Hypertension Priority: Secondary Status: Chronic Qualifiers: Hypertension type: essential hypertension Qualified Code(s): I10 - Essential (primary) hypertension Hospital course: Ms. Tan is a 88 year old female - Time Spent with Patient Total time spent providing and/or coordinating discharge services: Date of admission: 06/02/18 01:06 Primary care physician: PCP NONE Consults: 06/02/18 09:22 Consult to Nurse Navigator [CONS] Routine Comment: CHF - Constitutional Vitals: Temp Pulse Resp BP Pulse Ox 98.3 F 93 15 101/54 95 06/02/18 11:21 06/02/18 11:21 06/02/18 11:21 06/02/18 11:21 06/02/18 11:21 - Attending Attestation I examined this patient and my medical decision-making was reviewed with the Resident Physician on 06/02/18. I agree with the documented findings, disposition and treatment plan as described except to the extent set forth below. Pt see at 1215. Ms Tan has been in observation due to CHF exacerbation and a fib. She has diuresed and feels back to her baseline. No fever at this time. Agrees to be on anticoagulation for atrial fibrillation. Exam alert Comfortable in bed Has been up and walking to bathroom Mucus membranes dry Heart irreg - not tachy now Lungs clear at this time Abd soft No edema Plan D/C home today Kevin started Follow up with PCP.
--- NOTE | 2018-06-02 15:37 | Electrocardiograph Report ---
[address] [place] [address] Test Date: 2018-06-01 Pat Name: Toshia Lancaster Department: EXAM7 Room: 3B23 Gender: F Preboarder: : 1930 Requested By: Junior Jimenez Order Number: [id number] Reading MD: Mora Monaco Measurements Intervals [place] Rate: 114 P: [place]: QRS: 28 QRSD: 91 T: 238 QT: 328 QTc: 452 Interpretive Statements Atrial fibrillation Ventricular premature complex Nonspecific ST abnormalities Electronically Signed On 06-02-2018 15:36:37 EDT by Mora Monaco
[2018-06-02] MEDS ORDERED: Mirtazapine 15 MG TABLET PO SCH (21:00)
== END 2018-06-02 15:13 | disposition home or self-care (01) ==
LOC: EMEROOARM 21:37 → 3BNU 21:37 → SUATTDRO 06-02 01:06 → 3BNU 06-02 01:21
PROVIDERS: ADMIT Internal Medicine; ATTEND Internal Medicine